=== PATIENT | male | born 1965 | race Caucasian/White ===

== ENCOUNTER 2017-08-26 21:58 | Inpatient (IN) ==
[2017-11-24] MEDS ORDERED: Bisacodyl 10 MG Supp RECTAL PRN (00:01)
[2017-11-24] MEDS ORDERED: Magnesium Sulfate Inj 4 GM in Sodium Chlor 0.9% Inj 100 ML IV.SIG PRN (00:01)
[2017-11-24] MEDS ORDERED: Potassium Chlor 20 mEq Premix 20 MEQ/100 ML PIGGYBACK IV.SIG PRN (00:01)
[2017-11-24] MEDS: Artificial Tears Opth Drops 15 ML Bottle EACH EYE SCH ×3 (06:01→21:24)
[2017-11-24] MEDS: Chlorhexidine 0.12% Oral Kit 15 ML UDC SWISH-SPIT SCH ×2 (08:26→21:23)
[2017-11-24] MEDS: Atenolol 25 MG Tablet PO SCH ×2 (08:31→21:23)
[2017-11-24] MEDS: levETIRAcetam 500 MG Tablet NG/OG SCH ×2 (08:32→21:23)
[2017-11-24] MEDS: QUEtiapine 25 MG Tablet NG/OG SCH ×2 (08:32→21:22)
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
[2017-11-25] MEDS: Artificial Tears Opth Drops 15 ML Bottle EACH EYE SCH ×2 (06:06→22:17)
[2017-11-25] MEDS: QUEtiapine 25 MG Tablet NG/OG SCH ×2 (09:26→22:15)
[2017-11-25] MEDS: levETIRAcetam 500 MG Tablet NG/OG SCH ×2 (09:27→22:15)
[2017-11-25] MEDS: Atenolol 25 MG Tablet PO SCH ×2 (09:28→22:15)
[2017-11-25] MEDS: Chlorhexidine 0.12% Oral Kit 15 ML UDC SWISH-SPIT SCH ×2 (11:22→22:16)
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
--- NOTE | 2017-11-25 15:04 | P.DIET ---
Nutritional Evaluation Type of nutrition evaluation: follow-up Nutrition consult regarding: Tube Feeding, Diet Evaluation (Calorie count completed. Three meals recorded) Objective - Objective % IBW: 104 Energy Needs - Lower Range (kCal/kg): 28 Energy Needs - Upper Range (kCal/kg): 32 Lower Limit kCal/kg (kCals): 1,655 Upper Limit kCal/kg (kCals): 1,892 Lower Limit Protein Factor (Grams per Kg): 1.2 Upper Limit Protein Factor (Grams per Kg): 1.6 Lower Protein Needs (Protein): 71 Upper Protein Needs (Protein): 95 Dietitian Reviewed in Medical Record: Current diet, Curent medications, Intake & Output, Labs, Tube feeding Speech Therapy Recommendations: Yes Objective Comments: 09/05 G/J tube placement s/p trach removal Feeding - Current PO Supplement Current Supplement: Ensure Enlive Current Frequency of Supplement: Three times a day Current kCals Provided by Supplement: 350 Current Protein Provided by Supplement: 20 Assessment Assessment: Calorie counts indicate the pt is eating ~680 kcals and 39 gms of protein in a day. Most of the pt's nutrition was from Ensure Enlive. Minimal solid food taken. This represents 41% and 55 % of the low end of his kcaloric and protein needs respectively. Pt continues to need TFing to meet nutritional needs. Recommend night time TFing of Vital 1.5 @ 70 mls/hr from 7pm-7am to provide 1260 kcals and 57 gms protein. Recommendations: 1. Continue Ensure Enlive tid 2. Vital 1.5 @ 70 mls/hr from 7pm-7am (d/t inadequate po intake) 3. Consider new calorie counts in a week Dietitian to Monitor: Lab values, Supplement acceptance, Intake & Output, Weight change, PO Intake, Medical course
[2017-11-26] MEDS: Artificial Tears Opth Drops 15 ML Bottle EACH EYE SCH ×3 (05:34→23:49)
[2017-11-26] MEDS: Atenolol 25 MG Tablet PO SCH ×2 (09:22→23:47)
[2017-11-26] MEDS: levETIRAcetam 500 MG Tablet NG/OG SCH ×2 (09:22→23:47)
[2017-11-26] MEDS: QUEtiapine 25 MG Tablet NG/OG SCH ×2 (09:23→23:47)
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
[2017-11-26] MEDS: Chlorhexidine 0.12% Oral Kit 15 ML UDC SWISH-SPIT SCH ×2 (17:49→23:48)
[2017-11-27] MEDS: Artificial Tears Opth Drops 15 ML Bottle EACH EYE SCH ×2 (05:20→17:20)
[2017-11-27] MEDS: Atenolol 25 MG Tablet PO SCH (09:17)
[2017-11-27] MEDS: QUEtiapine 25 MG Tablet NG/OG SCH (09:18)
[2017-11-27] MEDS: levETIRAcetam 500 MG Tablet NG/OG SCH (09:18)
[2017-11-27] MEDS: Chlorhexidine 0.12% Oral Kit 15 ML UDC SWISH-SPIT SCH (09:19)
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
[2017-11-28] MEDS: Chlorhexidine 0.12% Oral Kit 15 ML UDC SWISH-SPIT SCH ×3 (00:08→21:32)
[2017-11-28] MEDS: Artificial Tears Opth Drops 15 ML Bottle EACH EYE SCH ×4 (00:08→21:44)
[2017-11-28] MEDS: QUEtiapine 25 MG Tablet NG/OG SCH ×3 (00:11→21:36)
[2017-11-28] MEDS: levETIRAcetam 500 MG Tablet NG/OG SCH ×3 (00:11→21:36)
[2017-11-28] MEDS: Atenolol 25 MG Tablet PO SCH ×3 (00:11→21:36)
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
[2017-11-29] MEDS: Artificial Tears Opth Drops 15 ML Bottle EACH EYE SCH ×3 (05:49→21:23)
[2017-11-29] MEDS: Chlorhexidine 0.12% Oral Kit 15 ML UDC SWISH-SPIT SCH ×2 (09:14→21:22)
[2017-11-29] MEDS: Atenolol 25 MG Tablet PO SCH ×2 (09:15→21:19)
[2017-11-29] MEDS: levETIRAcetam 500 MG Tablet NG/OG SCH ×2 (09:15→21:19)
[2017-11-29] MEDS: QUEtiapine 25 MG Tablet NG/OG SCH ×2 (09:17→21:18)
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
[2017-11-30] MEDS: Artificial Tears Opth Drops 15 ML Bottle EACH EYE SCH ×3 (05:36→22:00)
[2017-11-30] MEDS: levETIRAcetam 500 MG Tablet NG/OG SCH ×2 (10:23→21:57)
[2017-11-30] MEDS: QUEtiapine 25 MG Tablet NG/OG SCH ×2 (10:23→21:57)
[2017-11-30] MEDS: Atenolol 25 MG Tablet PO SCH (10:23)
[2017-11-30] MEDS: Chlorhexidine 0.12% Oral Kit 15 ML UDC SWISH-SPIT SCH ×2 (11:12→21:57)
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
[2017-12-01] MEDS: Artificial Tears Opth Drops 15 ML Bottle EACH EYE SCH ×3 (06:14→22:29)
[2017-12-01] MEDS: QUEtiapine 25 MG Tablet NG/OG SCH ×2 (10:21→22:23)
[2017-12-01] MEDS: Atenolol 25 MG Tablet PO SCH (10:21)
[2017-12-01] MEDS: levETIRAcetam 500 MG Tablet NG/OG SCH ×2 (10:21→22:24)
[2017-12-01] MEDS: Chlorhexidine 0.12% Oral Kit 15 ML UDC SWISH-SPIT SCH ×2 (10:24→22:22)
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
[2017-12-02] MEDS: Artificial Tears Opth Drops 15 ML Bottle EACH EYE SCH ×2 (05:30→14:20)
[2017-12-02] MEDS: levETIRAcetam 500 MG Tablet NG/OG SCH (08:52)
[2017-12-02] MEDS: QUEtiapine 25 MG Tablet NG/OG SCH (08:52)
[2017-12-02] MEDS: Atenolol 25 MG Tablet PO SCH (08:53)
[2017-12-02] MEDS: Chlorhexidine 0.12% Oral Kit 15 ML UDC SWISH-SPIT SCH (12:11)
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
--- NOTE | 2017-12-02 17:16 | P.DIET ---
Nutritional Evaluation Type of nutrition evaluation: follow-up Nutrition consult regarding: Tube Feeding, Diet Evaluation Subjective Barriers to Nutrition: Refuses to eat at times Subjective Comments: Pt continues w/ poor PO intake. Objective - Objective % IBW: 104 (SUZ=252.) Energy Needs - Lower Range (kCal/kg): 28 Energy Needs - Upper Range (kCal/kg): 32 Lower Limit kCal/kg (kCals): 1,655 Upper Limit kCal/kg (kCals): 1,892 Lower Limit Protein Factor (Grams per Kg): 1.2 Upper Limit Protein Factor (Grams per Kg): 1.6 Lower Protein Needs (Protein): 71 Upper Protein Needs (Protein): 95 Dietitian Reviewed in Medical Record: Current diet, Curent medications, Intake & Output, Labs, Tube feeding Oral Diet Intake Amount: Poor <50% Objective Comments: 09/05 G/J tube placement S/p trach removal Meds: Keppra 100ml water flush Q 6hrs LBM 12/01, c.diff+ Feeding - Current Tube Feeding Tube Feeding Product: Vital 1.5 Tube Feeding Method: Pump Tube Feeding Rate: 40 Tube Feeding Route: J/G tube Current kCals Provided by Tube Feedin,440 Current Protein Provided by Tube Feeding (gPRO): 65 Current Free H2O Provided (m/l): 733 - Current PO Supplement Current Supplement: Ensure Enlive Current Frequency of Supplement: Three times a day Current kCals Provided by Supplement: 350 Current Protein Provided by Supplement: 20 Assessment Assessment: Pt continues to have poor PO intake with occasional refusal of some meals. Usually drinks the Enlive supplements. Current TF order is for Vital 1.5 @ 40mls /hr x 24hrs. Recommend changing to Vital 1.5 @ 70mls/hr x 12hrs (7pm-7am) to provide 1260kcals, 67g PRO, and 642mls fluid. Note this will not provide 100% of pt's nutritional requirements, but will hopefully allow pt to feel hungry during the day. Continue Enlive TID as pt is drinking these. Dietitian following. Recommendations: 1. Continue Enlive TID. 2. Recommend Vital 1.5 @ 70mls/hr x 12hrs (7pm-7am). Dietitian to Monitor: Lab values, Supplement acceptance, Intake & Output, Diet tolerance, Tube feeding tolerance, Weight change, PO Intake, Medical course
[2017-12-03] MEDS: Chlorhexidine 0.12% Oral Kit 15 ML UDC SWISH-SPIT SCH (00:39)
[2017-12-03] MEDS: QUEtiapine 25 MG Tablet NG/OG SCH ×3 (00:40→20:29)
[2017-12-03] MEDS: Artificial Tears Opth Drops 15 ML Bottle EACH EYE SCH ×3 (00:40→14:00)
[2017-12-03] MEDS: levETIRAcetam 500 MG Tablet NG/OG SCH ×3 (00:40→20:29)
[2017-12-03] MEDS: Atenolol 25 MG Tablet PO SCH (09:42)
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
[2017-12-04] MEDS: Artificial Tears Opth Drops 15 ML Bottle EACH EYE SCH ×4 (01:54→21:57)
[2017-12-04] MEDS: QUEtiapine 25 MG Tablet NG/OG SCH ×2 (08:20→21:56)
[2017-12-04] MEDS: Atenolol 25 MG Tablet PO SCH (08:20)
[2017-12-04] MEDS: levETIRAcetam 500 MG Tablet NG/OG SCH ×2 (08:20→21:56)
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
--- NOTE | 2017-12-04 13:13 | XR ---
EXAM DATE: 12/04/2017 1:04 PM EDT AGE/SEX: 51 years / Male INDICATIONS: Distention. CLINICAL DATA: This is the patient's initial encounter. Patient reports that signs and symptoms have been present for 1 day and indicates a pain score of Nonresponsive. MEDICAL/SURGICAL HISTORY: . Seizures. . Craniotomy. [place] [facility] [place]. . FINDINGS: Lung bases are clear. Gastrostomy tube evident. Minimal gas filled nondilated loops of large and smal l bowel evident. There is no significant stool. CONCLUSION: Minimal nonspecific gaseous distention. Electronically signed by: Alexis Dorsey MD 12/04/2017 1:12 PM EDT
[2017-12-05] MEDS: Artificial Tears Opth Drops 15 ML Bottle EACH EYE SCH ×3 (05:56→22:10)
[2017-12-05] MEDS: QUEtiapine 25 MG Tablet NG/OG SCH ×2 (09:58→20:08)
[2017-12-05] MEDS: Atenolol 25 MG Tablet PO SCH (09:59)
[2017-12-05] MEDS: levETIRAcetam 500 MG Tablet NG/OG SCH ×2 (09:59→20:08)
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
[2017-12-05 15:42] LABS: Baso # (Auto) 0.1 th/mm3 (0.0-0.2); Baso % (Auto) 0.4 % (0.0-2.0); Eos # (Auto) 0.4 th/mm3 (0.0-0.4); Eos % (Auto) 3.7 % (0.0-4.0); Hemoglobin 14.9 gm/dL (13.0-17.0); Lymph # (Auto) 2.3 th/mm3 (1.0-4.8); Lymph % (Auto) 20.3 % (9.0-44.0); Mean Corpuscular HGB Conc 33.2 % (32.0-36.0); Mean Corpuscular Hemoglobin 28.6 pg (27.0-34.0); Mean Corpuscular Volume 86.2 fL (80.0-100.0); Mean Platelet Volume 11.2 fL (7.0-11.0); Mono # (Auto) 2.6 th/mm3 (0.0-0.9); Mono % (Auto) 22.3 % (0.0-8.0); Neut # (Auto) 6.2 th/mm3 (1.8-7.7); Neut % (Auto) 53.3 % (16.0-70.0); Platelet Count 132 th/mm3 (150-450); Red Blood Count 5.22 mil/mm3 (4.50-5.90); Red Cell Distribution Width 15.6 % (11.6-17.2); White Blood Count 11.6 th/mm3 (4.0-11.0)
[2017-12-05 15:52] LABS: Albumin 2.8 g/dL (3.4-5.0); Anion Gap 11 meq/L (5-15); Aspartate Aminotransferase 20 U/L (15-37); Blood Urea Nitrogen 9 mg/dL (7-18); Calcium 8.5 mg/dL (8.5-10.1); Carbon Dioxide 27.1 meq/L (21.0-32.0); Chloride 100 meq/L (98-107); Glomerular Filtration Rate Greater Than 89 mL/min (>89); Glucose,Random 100 mg/dL (74-106); Potassium 3.5 meq/L (3.5-5.1); Sodium 138 meq/L (136-145)
[2017-12-05 15:56] LABS: Alanine Aminotransferase 18 U/L (12-78); Alkaline Phosphatase 62 U/L (45-117); Total Protein 6.7 g/dL (6.4-8.2)
[2017-12-05 16:40] LABS: Eosinophils 8 % (0-4); Lymphocytes 18 % (9-44); Monocytes 22 % (0-8)
[2017-12-05 16:43] LABS: Platelet Morphology Normal (Normal)
--- NOTE | 2017-12-05 17:22 | P.PN ---
Subjective Interval history: F/U of aspiration pneumonia / H/o head injury. Pt has C Difficile colitis and still has some loose stools. Abdominal distention has improved. Off O2 at sats are 97 Physical Exam Vital signs: Vital Signs 12/04/17 20:00 12/05/17 00:00 12/05/17 04:00 Temperature 98.3 F 98.1 F 100.8 F H Pulse Rate 86 112 H 96 H Respiratory Rate 16 17 17 Blood Pressure 95/60 L 128/76 96/62 L Pulse Oximetry 95 95 95 12/05/17 08:00 12/05/17 12:00 Temperature 98.7 F 98.8 F Pulse Rate 102 H 92 H Respiratory Rate 18 18 Blood Pressure 108/75 100/66 Pulse Oximetry 95 94 L Intake & Output 12/04/17 12/05/17 12/05/17 18:59 06:59 18:59 Intake Total 600 / 600 150 / 150 Output Total 100 / 100 Balance 500 / 500 150 / 150 Weight 55.3 kg Intake: Oral 600 / 600 150 / 150 Output: Urine 100 / 100 Other: # Voids 3 # Incontinent Voids 1 Date of Last Bowel Movement 12/03/17 # Bowel Movements 2 # Incontinent Bowel Movements 2 Narrative: awake and alert, no acute distress,Follows all commands, speech soft, oriented to person anicteric no nuchal rigidity tracheostomy wound close Chest is clear. regular rhythm no Murmur. abdomen- much softer , + PEG in place, + tender epigastric area, good bowel sounds, no guarding extremities no edema- moves all extremities spontaneously moves all extremities . Results - Labs CBC & Chem 7: 12/05/17 13:45 12/05/17 13:45 Laboratory Results - last 24 hr 12/05/17 12/05/17 12/05/17 13:45 13:45 13:57 WBC 11.6 H RBC 5.22 Hgb 14.9 Hct 45.0 MCV 86.2 MCH 28.6 MCHC 33.2 RDW 15.6 Plt Count 132 L MPV 11.2 H Prelim Diff (Auto) Slide review pending Neut % (Auto) 53.3 Lymph % (Auto) 20.3 [place] % (Auto) 22.3 H Eos % (Auto) 3.7 Baso % (Auto) 0.4 Neut # (Auto) 6.2 Lymph # (Auto) 2.3 [place] # (Auto) 2.6 H Eos # (Auto) 0.4 Baso # (Auto) 0.1 WBC Differential Manual diff final Seg Neuts % (Manual) 39 Band Neuts % (Manual) 12 H Lymphocytes % (Manual) 18 Monocytes % (Manual) 22 H Eosinophils % (Manual) 8 H Basophils % (Manual) 1 Abs Neuts (Manual) 5.9 Differential Comment . Platelet Estimate Low L Platelet Morphology Normal Sodium 138 Potassium 3.5 Chloride 100 Carbon Dioxide 27.1 Anion Gap 11 BUN 9 Creatinine 0.58 L Estimated GFR Greater than 89 Random Glucose 100 Calcium 8.5 Total Bilirubin 0.5 AST 20 ALT 18 Alkaline Phosphatase 62 Total Protein 6.7 Albumin 2.8 L Lipase 81 Assessment and Plan - Assessment (1) Aspiration into airway Code(s): T17.908A - Unspecified foreign body in respiratory tract, part unspecified causing other injury, initial encounter Status: Acute Plan: Aspiration precautions and a soft diet. Chest Xray. (2) Encephalopathy chronic Code(s): G93.49 - Other encephalopathy Status: Acute Plan: PT evaluation. Seroquel 25 mg BID (3) Traumatic brain injury Code(s): S06.9X9A - Unspecified intracranial injury with loss of consciousness of unspecified duration, initial encounter Status: Acute (4) C. difficile diarrhea Code(s): A04.72 - Enterocolitis due to Clostridium difficile, not specified as recurrent Status: Acute
[2017-12-06] MEDS: Artificial Tears Opth Drops 15 ML Bottle EACH EYE SCH ×3 (05:20→22:56)
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
[2017-12-06] MEDS: levETIRAcetam 500 MG Tablet NG/OG SCH ×2 (10:40→22:55)
[2017-12-06] MEDS: QUEtiapine 25 MG Tablet NG/OG SCH ×2 (10:41→22:55)
[2017-12-06] MEDS: Atenolol 25 MG Tablet PO SCH (10:41)
--- NOTE | 2017-12-06 18:12 | P.PN ---
Subjective Interval history: No change in mentation. Awake and responds to commands . Off O2 and incontinent. No Abdominal distention Physical Exam Vital signs: Vital Signs 12/05/17 20:00 12/06/17 00:00 12/06/17 04:00 Temperature 98.3 F 98.7 F 98 F Pulse Rate 89 93 H 86 Respiratory Rate 16 16 20 Blood Pressure 97/62 L 113/76 103/68 Pulse Oximetry 95 96 98 12/06/17 08:00 12/06/17 12:00 Temperature 98.2 F 98.2 F Pulse Rate 88 82 Respiratory Rate 18 18 Blood Pressure 103/62 99/59 L Pulse Oximetry 95 96 Intake & Output 12/05/17 12/06/17 12/06/17 18:59 06:59 18:59 Intake Total 240 / 240 120 / 120 Balance 240 / 240 120 / 120 Weight 55.6 kg Intake: Oral 240 / 240 120 / 120 Other: # Voids 2 Date of Last Bowel Movement 12/05/17 12/05/17 # Bowel Movements 3 # Incontinent Bowel Movements 4 Narrative: awake and alert, no acute distress,Follows all commands, speech soft but clear oriented to person. no nuchal rigidity. Throat is clear. tracheostomy wound closed Chest is clear. regular rhythm no Murmur. abdomen- soft, good bowel sounds, no guarding, no tenderness + PEG in place, extremities no edema- moves all extremities spontaneously Skin was dry. Results - Labs CBC & Chem 7: 12/05/17 13:45 12/05/17 13:45 Assessment and Plan - Assessment (1) Aspiration into airway Code(s): T17.908A - Unspecified foreign body in respiratory tract, part unspecified causing other injury, initial encounter Status: Acute Plan: Watch for aspiration and soft diet. Albuterol Nebs 2.5 mg qid PRN O2 2 L PRN (2) Encephalopathy chronic Code(s): G93.49 - Other encephalopathy Status: Acute Plan: PT evaluation. (3) Traumatic brain injury Code(s): S06.9X9A - Unspecified intracranial injury with loss of consciousness of unspecified duration, initial encounter Status: Acute (4) C. difficile diarrhea Code(s): A04.72 - Enterocolitis due to Clostridium difficile, not specified as recurrent Status: Acute
[2017-12-07] MEDS: Acetaminophen 325 MG Tablet PO PRN ×2 (00:43→09:23)
[2017-12-07] MEDS: QUEtiapine 25 MG Tablet NG/OG SCH ×2 (09:23→20:29)
[2017-12-07] MEDS: levETIRAcetam 500 MG Tablet NG/OG SCH ×2 (09:23→20:29)
[2017-12-07] MEDS: Atenolol 25 MG Tablet PO SCH (09:23)
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
[2017-12-07] MEDS: Artificial Tears Opth Drops 15 ML Bottle EACH EYE SCH ×2 (11:32→17:58)
--- NOTE | 2017-12-07 11:45 | XR ---
EXAM DATE: 12/07/2017 11:35 AM EDT AGE/SEX: 51 years / Male INDICATIONS: Fever CLINICAL DATA: This is the patient's subsequent encounter. Patient reports that signs and symptoms h ave been present for 1 month and indicates a pain score of Nonresponsive. MEDICAL/SURGICAL HISTORY: Non-responsive. Non-responsive. COMPARISON: [facility] – [place], CHEST SINGLE AP, 11/19/2017. . FINDINGS: AP portable supine view of the chest demonstrates stable appearance of elevation of the left hemidiap hragm. The lungs are clear. Heart size is normal. Pulmonary vasculature is normal. Osseous structures appear intact. CONCLUSION: Negative examination. Electronically signed by: Danika Ascencio MD 12/07/2017 11:44 AM EDT
--- NOTE | 2017-12-07 11:46 | XR ---
EXAM DATE: 12/07/2017 11:36 AM EDT AGE/SEX: 51 years / Male INDICATIONS: Fever CLINICAL DATA: This is the patient's subsequent encounter. Patient reports that signs and symptoms h ave been present for 1 month and indicates a pain score of Nonresponsive. MEDICAL/SURGICAL HISTORY: Non-responsive. Non-responsive. COMPARISON: [facility] – [place], ABDOMEN 2V FLAT & UPRIGHT, 12/04/2017. . FINDINGS: Multiple upright and supine portable views are obtained. The majority of the films are nondiagnostic secondary to patient motion and poor penetration. There is no evidence of bowel obstruction. There is a PEG tube overlying the region of the stomach. Osseous structures appear intact. CONCLUSION: Given the limitations of the plain film exam. Consider CT for further evaluation of the abdomen and p bari. Electronically signed by: Danika Ascencio MD 12/07/2017 11:45 AM EDT
[2017-12-07 13:14] LABS: Baso # (Auto) 0.1 th/mm3 (0.0-0.2); Baso % (Auto) 0.3 % (0.0-2.0); Eos # (Auto) 0.1 th/mm3 (0.0-0.4); Eos % (Auto) 0.6 % (0.0-4.0); Hematocrit 46.3 % (39.0-51.0); Hemoglobin 15.7 gm/dL (13.0-17.0); Lymph # (Auto) 1.6 th/mm3 (1.0-4.8); Lymph % (Auto) 9.8 % (9.0-44.0); Mean Corpuscular HGB Conc 33.9 % (32.0-36.0); Mean Corpuscular Volume 85.8 fL (80.0-100.0); Mean Platelet Volume 10.3 fL (7.0-11.0); Mono # (Auto) 2.9 th/mm3 (0.0-0.9); Mono % (Auto) 17.2 % (0.0-8.0); Neut # (Auto) 12.1 th/mm3 (1.8-7.7); Neut % (Auto) 72.1 % (16.0-70.0); Platelet Count 157 th/mm3 (150-450); Red Cell Distribution Width 15.5 % (11.6-17.2); White Blood Count 16.8 th/mm3 (4.0-11.0)
[2017-12-07 13:29] LABS: Alanine Aminotransferase 14 U/L (12-78); Albumin 2.8 g/dL (3.4-5.0); Anion Gap 10 meq/L (5-15); Aspartate Aminotransferase 16 U/L (15-37); Blood Urea Nitrogen 9 mg/dL (7-18); Calcium 8.2 mg/dL (8.5-10.1); Carbon Dioxide 27.9 meq/L (21.0-32.0); Chloride 100 meq/L (98-107); Glomerular Filtration Rate Greater Than 89 mL/min (>89); Glucose,Random 100 mg/dL (74-106); Potassium 3.5 meq/L (3.5-5.1); Sodium 138 meq/L (136-145)
[2017-12-07 13:32] LABS: Alkaline Phosphatase 64 U/L (45-117)
[2017-12-07 14:06] LABS: Eosinophils 1 % (0-4); Lymphocytes 14 % (9-44); Monocytes 15 % (0-8); Platelet Estimate Normal (Normal); Platelet Morphology Normal (Normal); RBC Morphology Normal (Normal)
[2017-12-07 16:43] LABS: Amorphous Sediment,Urine Occasional /hpf; Bilirubin,Urine Negative (Negative); Clarity,Urine Hazy (Clear); Color,Urine Amber (Yellw/Straw); Glucose,Urine (UA) 50 mg/dL (Negative); Leukocyte Esterase,Urine Negative (Negative); Mucus,Urine Few /lpf (Occasional); Nitrite,Urine Negative (Negative); Specific Gravity,Urine 1.019 (1.002-1.035)
[2017-12-07 16:48] LABS: Bacteria,Urine Few /hpf
[2017-12-07] MEDS ORDERED: Diatrizoate Meglum/Diatrizoate Sod Liq 9 ML UDC PO ONE (17:39)
[2017-12-07] MEDS: KCL 20 mEq/D5W/NaCl 0.9% Inj 1,000 ML IV.CONT SCH (18:33)
[2017-12-07] MEDS: Levofloxacin 500 mg Premix Inj 500 MG/100 ML PIGGYBACK IV.SIG SCH (18:34)
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
[2017-12-08] MEDS: Artificial Tears Opth Drops 15 ML Bottle EACH EYE SCH ×4 (00:37→21:02)
[2017-12-08] MEDS: KCL 20 mEq/D5W/NaCl 0.9% Inj 1,000 ML IV.CONT SCH ×4 (05:35→20:50)
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
[2017-12-08 09:48] LABS: Baso # (Auto) 0.1 th/mm3 (0.0-0.2); Baso % (Auto) 0.7 % (0.0-2.0); Eos # (Auto) 0.4 th/mm3 (0.0-0.4); Eos % (Auto) 2.4 % (0.0-4.0); Hematocrit 40.4 % (39.0-51.0); Hemoglobin 13.7 gm/dL (13.0-17.0); Lymph # (Auto) 2.3 th/mm3 (1.0-4.8); Lymph % (Auto) 14.1 % (9.0-44.0); Mean Corpuscular HGB Conc 33.8 % (32.0-36.0); Mean Corpuscular Hemoglobin 28.9 pg (27.0-34.0); Mean Corpuscular Volume 85.6 fL (80.0-100.0); Mean Platelet Volume 10.5 fL (7.0-11.0); Mono # (Auto) 2.2 th/mm3 (0.0-0.9); Mono % (Auto) 13.5 % (0.0-8.0); Neut # (Auto) 11.2 th/mm3 (1.8-7.7); Neut % (Auto) 69.3 % (16.0-70.0); Platelet Count 139 th/mm3 (150-450); Red Blood Count 4.72 mil/mm3 (4.50-5.90); Red Cell Distribution Width 15.2 % (11.6-17.2); White Blood Count 16.2 th/mm3 (4.0-11.0)
[2017-12-08 09:57] LABS: Anion Gap 14 meq/L (5-15); Blood Urea Nitrogen 10 mg/dL (7-18); Calcium 7.9 mg/dL (8.5-10.1); Carbon Dioxide 22.2 meq/L (21.0-32.0); Chloride 102 meq/L (98-107); Glomerular Filtration Rate Greater Than 89 mL/min (>89); Glucose,Random 114 mg/dL (74-106)
[2017-12-08 10:21] LABS: Eosinophils 1 % (0-4); Lymphocytes 15 % (9-44); Metamyelocytes 1 % (0-1); Monocytes 10 % (0-8)
[2017-12-08 10:22] LABS: Platelet Morphology Normal (Normal)
[2017-12-08 10:29] LABS: Sodium 138 meq/L (136-145)
[2017-12-08] MEDS: Atenolol 25 MG Tablet PO SCH (10:51)
[2017-12-08] MEDS: QUEtiapine 25 MG Tablet NG/OG SCH ×2 (10:51→20:49)
[2017-12-08] MEDS: levETIRAcetam 500 MG Tablet NG/OG SCH ×2 (10:53→20:49)
[2017-12-08] MEDS: Levofloxacin 500 mg Premix Inj 500 MG/100 ML PIGGYBACK IV.SIG SCH (16:28)
--- NOTE | 2017-12-08 19:37 | P.PNID ---
Subjective Remarks: Reconsult requested from infectious disease. Patient with fever. Temperature of 102.9 acute on 12/07 early. Temperature has improved. White blood cell count elevated. Patient is awake. States that he feels okay. Denies pain. Denies chills. Denies shortness of breath. He is on room air O2. CT of abdomem shows diffuse colitis. Lines: Peripheral IV catheter appears intact. Allergies/Adverse Reactions: Allergies No Known Allergies Allergy (Verified 11/23/17 11:49) Objective Vital Signs 12/07/17 20:00 12/08/17 00:00 12/08/17 04:00 Temperature 97.8 F 97.2 F L 98.1 F Pulse Rate 98 H 96 H 95 H Respiratory Rate 18 18 17 Blood Pressure 108/80 121/85 104/73 Pulse Oximetry 97 98 96 12/08/17 08:00 12/08/17 12:00 12/08/17 16:00 Temperature 97.9 F 97.8 F 98 F Pulse Rate 86 76 72 Respiratory Rate 20 20 20 Blood Pressure 111/71 105/61 99/52 L Pulse Oximetry 96 96 95 Intake & Output 12/08/17 12/08/17 12/09/17 06:59 18:59 06:59 Intake Total 1300 / 1300 200 / 200 Balance 1300 / 1300 200 / 200 Weight 56.6 kg Intake: IV 1300 / 1300 200 / 200 D5W/NS + KCL 20 mEq Inj 1,000 1000 / 1000 ML @ 100 mls/hr IV.CONT .Q10H [facility] Rx#:[id number] Levaquin 500 mg Premix Inj 500 100 / 100 mg In 100 ml @ 100 mls/hr IV. SIG Q24H [facility] Rx#:[id number] Flagyl 500 MG Inj 100 ML @ 100 200 / 200 200 / 200 mls/hr IV.SIG Q6HR [facility] Rx#: [id number] Oral 0 / 0 Other: # Voids 0 Date of Last Bowel Movement 12/07/17 12/08/17 # Bowel Movements 2 12/07/17 12:43 Blood - Peripheral Aerobic Blood Culture - Preliminary No growth in 1 day 12/07/17 12:43 Blood - Peripheral Anaerobic Blood Culture - Preliminary No growth in 1 day 12/07/17 12:15 Blood - Peripheral Aerobic Blood Culture - Preliminary No growth in 1 day 12/07/17 12:15 Blood - Peripheral Anaerobic Blood Culture - Preliminary No growth in 1 day 12/07/17 16:25 Catheterized Urine Urine Culture - Preliminary No growth in 24 hours Lab - Hematology Results 12/07/17 12/08/17 12:43 08:45 WBC 16.8 H 16.2 H RBC 5.40 4.72 Hgb 15.7 13.7 D Hct 46.3 40.4 MCV 85.8 85.6 MCH 29.0 28.9 MCHC 33.9 33.8 RDW 15.5 15.2 Plt Count 157 139 L MPV 10.3 10.5 Prelim Diff (Auto) Slide review pending Slide review pending Neut % (Auto) 72.1 H 69.3 Lymph % (Auto) 9.8 14.1 [place] % (Auto) 17.2 H 13.5 H Eos % (Auto) 0.6 2.4 Baso % (Auto) 0.3 0.7 Neut # (Auto) 12.1 H 11.2 H Lymph # (Auto) 1.6 2.3 [place] # (Auto) 2.9 H 2.2 H Eos # (Auto) 0.1 0.4 Baso # (Auto) 0.1 0.1 WBC Differential Manual diff final Manual diff final Seg Neuts % (Manual) 21 62 Band Neuts % (Manual) 49 H 11 H Lymphocytes % (Manual) 14 15 Monocytes % (Manual) 15 H 10 H Eosinophils % (Manual) 1 1 Metamyelocytes % (Man) 1 Abs Neuts (Manual) 11.8 H 12.0 H Differential Comment . . Platelet Estimate Normal Low L Platelet Morphology Normal Normal RBC Morphology Normal Hematology Comments Lab - Chemistry Results 12/07/17 12/07/17 12/08/17 12:43 12:43 08:45 Sodium 138 138 Potassium 3.5 4.0 Chloride 100 102 Carbon Dioxide 27.9 22.2 Anion Gap 10 14 BUN 9 10 Creatinine 0.65 0.59 L Estimated GFR Greater than 89 Greater than 89 Random Glucose 100 114 H Calcium 8.2 L 7.9 L Total Bilirubin 0.6 AST 16 ALT 14 Alkaline Phosphatase 64 Total Protein 7.0 Albumin 2.8 L Lipase 62 L Imaging: ITS Impressions Abdomen/Pelvis CT 12/07/17 00:00 CONCLUSION: 1. Diffuse colitis. 2. GJ tube in place. 3. Mild left pleural effusion, there are mild bibasilar areas of consolidation or atelectasis. Chest X-Ray 12/07/17 11:05 CONCLUSION: Negative examination. Abdomen X-Ray 12/07/17 11:06 CONCLUSION: Given the limitations of the plain film exam. Consider CT for further evaluation of the abdomen and pelvis. Physical Exam: GENERAL: Alert and oriented, no acute distress. HEENT: Pupils reactive to light. Extraocular movements intact. No icterus. NECK: Supple without adenopathy. No swelling. LUNGS: Clear to auscultation with slight rhonchi at the bases. HEART: Regular S1-S2 without murmurs rubs or gallops. ABDOMEN: Positive bowel sounds, soft, no tenderness appreciated. EXTREMITIES: No clubbing cyanosis or edema. SKIN: No rash. NEUROLOGIC: No focal finding. PSYCH: Calm and cooperative. Peripheral IV line intact without evidence of infection. Assessment and Plan - Plan Impression: Fever. Clinically stable and temperature has improved. positive c difficile Recommendations: Continue to monitor temperature. Monitor white blood cell count. Continue Dificid. I will ask Dr. Arreola to continue to follow the patient who is known to her.
[2017-12-09] MEDS: KCL 20 mEq/D5W/NaCl 0.9% Inj 1,000 ML IV.CONT SCH ×2 (00:03→10:32)
[2017-12-09] MEDS: QUEtiapine 25 MG Tablet NG/OG SCH ×2 (10:31→21:44)
[2017-12-09] MEDS: levETIRAcetam 500 MG Tablet NG/OG SCH ×2 (10:31→21:44)
[2017-12-09] MEDS: Artificial Tears Opth Drops 15 ML Bottle EACH EYE SCH ×3 (10:33→21:46)
[2017-12-09 12:07] LABS: Anion Gap 8 meq/L (5-15); Blood Urea Nitrogen 7 mg/dL (7-18); Calcium 7.8 mg/dL (8.5-10.1); Carbon Dioxide 24.9 meq/L (21.0-32.0); Chloride 111 meq/L (98-107); Glomerular Filtration Rate Greater Than 89 mL/min (>89); Glucose,Random 107 mg/dL (74-106); Potassium 3.2 meq/L (3.5-5.1); Sodium 144 meq/L (136-145)
--- NOTE | 2017-12-09 12:35 | P.PN ---
Subjective Interval history: Has loose stools and fever. Has Rec C. Difficile colitis. Off Tube feeds. Physical Exam Vital signs: Vital Signs 12/08/17 16:00 12/08/17 20:00 12/09/17 00:00 Temperature 98 F 97.8 F 98.0 F Pulse Rate 72 69 67 Respiratory Rate 20 18 18 Blood Pressure 99/52 L 90/53 L 95/55 L Pulse Oximetry 95 97 97 12/09/17 04:00 12/09/17 08:00 Temperature 98.0 F 97.8 F Pulse Rate 66 66 Respiratory Rate 18 20 Blood Pressure 90/54 L 92/57 L Pulse Oximetry 97 95 Intake & Output 12/08/17 12/09/17 12/09/17 18:59 06:59 18:59 Intake Total 200 / 200 1200 / 1200 Balance 200 / 200 1200 / 1200 Weight 55.5 kg Intake: IV 200 / 200 1200 / 1200 D5W/NS + KCL 20 mEq Inj 1,000 1000 / 1000 ML @ 100 mls/hr IV.CONT .Q10H [facility] Rx#:[id number] Flagyl 500 MG Inj 100 ML @ 100 200 / 200 200 / 200 mls/hr IV.SIG Q6HR [facility] Rx#: [id number] Oral 0 / 0 Other: # Voids 2 Date of Last Bowel Movement 12/08/17 12/08/17 # Bowel Movements 2 Narrative: awake and alert, no acute distress and seems hydrated. Throat is clear. tracheostomy wound healed Chest is clear. regular rhythm no Murmur. abdomen- soft, , l+ tenderness- lower abdomen, no guarding extremities no edema- moves all extremities spontaneously Skin was dry. No Neuro deficits. Results - Labs CBC & Chem 7: 12/08/17 08:45 12/09/17 11:10 Laboratory Results - last 24 hr 12/09/17 11:10 Sodium 144 Potassium 3.2 L D Chloride 111 H D Carbon Dioxide 24.9 Anion Gap 8 BUN 7 Creatinine 0.45 L Estimated GFR Greater than 89 Random Glucose 107 H Calcium 7.8 L Microbiology 12/07/17 12:43 Blood - Peripheral Aerobic Blood Culture - Preliminary No growth in 2 days 12/07/17 12:43 Blood - Peripheral Anaerobic Blood Culture - Preliminary No growth in 2 days 12/07/17 12:15 Blood - Peripheral Aerobic Blood Culture - Preliminary No growth in 2 days 12/07/17 12:15 Blood - Peripheral Anaerobic Blood Culture - Preliminary No growth in 2 days 12/07/17 16:25 Catheterized Urine Urine Culture - Final No growth in 48 hours Assessment and Plan - Assessment (1) Aspiration into airway Code(s): T17.908A - Unspecified foreign body in respiratory tract, part unspecified causing other injury, initial encounter Status: Acute Plan: Duonebs qid prn. CXR this week (2) Encephalopathy chronic Code(s): G93.49 - Other encephalopathy Status: Acute Plan: PT and OT evaluation. (3) Traumatic brain injury Code(s): S06.9X9A - Unspecified intracranial injury with loss of consciousness of unspecified duration, initial encounter Status: Acute (4) C. difficile diarrhea Code(s): A04.72 - Enterocolitis due to Clostridium difficile, not specified as recurrent Status: Acute Plan: Antibiotics per ID and Hydration.
[2017-12-09] MEDS: Atenolol 25 MG Tablet PO SCH (14:24)
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
--- NOTE | 2017-12-09 20:54 | P.PNID ---
Subjective Remarks: Chart reviewed Reconsult requested from infectious disease. Patient with fever. Temperature of 102.9 acute on 12/07 early. Temperature has improved. White blood cell count elevated. Patient is awake. States that he feels okay. Denies pain. Denies chills. Denies shortness of breath. He is on room air O2. CT of abdomem shows diffuse colitis. POsitiveC.diff 027 on 11/27 test No fever today Per RN had some liquid mucosy BMs today + abdominal pain Lines: Peripheral IV catheter appears intact. Allergies/Adverse Reactions: Allergies No Known Allergies Allergy (Verified 11/23/17 11:49) Objective Vital Signs 12/09/17 00:00 12/09/17 04:00 12/09/17 08:00 Temperature 98.0 F 98.0 F 97.8 F Pulse Rate 67 66 66 Respiratory Rate 18 18 20 Blood Pressure 95/55 L 90/54 L 92/57 L Pulse Oximetry 97 97 95 12/09/17 12:00 12/09/17 16:00 Temperature 97.5 F L 97.9 F Pulse Rate 76 66 Respiratory Rate 20 20 Blood Pressure 105/65 97/60 L Pulse Oximetry 98 97 Intake & Output 12/09/17 12/09/17 12/10/17 06:59 18:59 06:59 Intake Total 1200 / 1200 920 / 920 Balance 1200 / 1200 920 / 920 Weight 55.5 kg Intake: IV 1200 / 1200 200 / 200 D5W/NS + KCL 20 mEq Inj 1,000 1000 / 1000 ML @ 100 mls/hr IV.CONT .Q10H [facility] Rx#:[id number] Flagyl 500 MG Inj 100 ML @ 100 200 / 200 200 / 200 mls/hr IV.SIG Q6HR [facility] Rx#: [id number] Oral 0 / 0 720 / 720 Other: # Voids 2 2 Date of Last Bowel Movement 12/08/17 # Bowel Movements 2 2 12/07/17 12:43 Blood - Peripheral Aerobic Blood Culture - Preliminary No growth in 2 days 12/07/17 12:43 Blood - Peripheral Anaerobic Blood Culture - Preliminary No growth in 2 days 12/07/17 12:15 Blood - Peripheral Aerobic Blood Culture - Preliminary No growth in 2 days 12/07/17 12:15 Blood - Peripheral Anaerobic Blood Culture - Preliminary No growth in 2 days 12/07/17 16:25 Catheterized Urine Urine Culture - Final No growth in 48 hours Lab - Hematology Results 12/08/17 08:45 WBC 16.2 H RBC 4.72 Hgb 13.7 D Hct 40.4 MCV 85.6 MCH 28.9 MCHC 33.8 RDW 15.2 Plt Count 139 L MPV 10.5 Prelim Diff (Auto) Slide review pending Neut % (Auto) 69.3 Lymph % (Auto) 14.1 [place] % (Auto) 13.5 H Eos % (Auto) 2.4 Baso % (Auto) 0.7 Neut # (Auto) 11.2 H Lymph # (Auto) 2.3 [place] # (Auto) 2.2 H Eos # (Auto) 0.4 Baso # (Auto) 0.1 WBC Differential Manual diff final Seg Neuts % (Manual) 62 Band Neuts % (Manual) 11 H Lymphocytes % (Manual) 15 Monocytes % (Manual) 10 H Eosinophils % (Manual) 1 Metamyelocytes % (Man) 1 Abs Neuts (Manual) 12.0 H Differential Comment . Platelet Estimate Low L Platelet Morphology Normal Hematology Comments Lab - Chemistry Results 12/08/17 12/09/17 08:45 11:10 Sodium 138 144 Potassium 4.0 3.2 L D Chloride 102 111 H D Carbon Dioxide 22.2 24.9 Anion Gap 14 8 BUN 10 7 Creatinine 0.59 L 0.45 L Estimated GFR Greater than 89 Greater than 89 Random Glucose 114 H 107 H Calcium 7.9 L 7.8 L Imaging: ITS Impressions Abdomen/Pelvis CT 12/07/17 00:00 CONCLUSION: 1. Diffuse colitis. 2. GJ tube in place. 3. Mild left pleural effusion, there are mild bibasilar areas of consolidation or atelectasis. Chest X-Ray 12/07/17 11:05 CONCLUSION: Negative examination. Abdomen X-Ray 12/07/17 11:06 CONCLUSION: Given the limitations of the plain film exam. Consider CT for further evaluation of the abdomen and pelvis. Physical Exam: GENERAL: Alert and oriented, no acute distress. HEENT: Pupils reactive to light. Extraocular movements intact. No icterus. NECK: Supple without adenopathy. No swelling. LUNGS: Clear to auscultation with slight rhonchi at the bases. HEART: Regular S1-S2 without murmurs rubs or gallops. ABDOMEN: Positive bowel sounds, soft, mildl disteded and tender to palpation EXTREMITIES: No clubbing cyanosis or edema. SKIN: No rash. NEUROLOGIC: [place] cognitive deficits, stable PSYCH: Calm and cooperative. Peripheral IV line intact without evidence of infection. Assessment and Plan - Plan Impression: Fever. Clinically stable and temperature has improved. Diffiuse c difficile colitis, Hypervirulebnt strai n No e/o PNA on CXR Recommendations: avoid systemic abx Monitor white blood cell count. Continue Dificid. cont IV flagyl and oral vancomycin will monitor xclinical response
[2017-12-10] MEDS: KCL 20 mEq/D5W/NaCl 0.9% Inj 1,000 ML IV.CONT SCH ×2 (01:19→19:00)
[2017-12-10] MEDS: Artificial Tears Opth Drops 15 ML Bottle EACH EYE SCH ×3 (06:08→21:16)
[2017-12-10 09:48] LABS: Baso % (Auto) 0.7 % (0.0-2.0); Eos # (Auto) 0.3 th/mm3 (0.0-0.4); Eos % (Auto) 5.1 % (0.0-4.0); Hematocrit 39.3 % (39.0-51.0); Hemoglobin 13.2 gm/dL (13.0-17.0); Lymph # (Auto) 1.8 th/mm3 (1.0-4.8); Lymph % (Auto) 31.8 % (9.0-44.0); Mean Corpuscular HGB Conc 33.6 % (32.0-36.0); Mean Corpuscular Hemoglobin 28.8 pg (27.0-34.0); Mean Corpuscular Volume 85.8 fL (80.0-100.0); Mean Platelet Volume 9.3 fL (7.0-11.0); Mono # (Auto) 0.5 th/mm3 (0.0-0.9); Mono % (Auto) 8.8 % (0.0-8.0); Neut % (Auto) 53.6 % (16.0-70.0); Platelet Count 178 th/mm3 (150-450); Red Blood Count 4.58 mil/mm3 (4.50-5.90); Red Cell Distribution Width 14.7 % (11.6-17.2); White Blood Count 5.5 th/mm3 (4.0-11.0)
[2017-12-10 09:49] LABS: INR 1.3 Ratio; Prothrombin Time 12.7 sec (9.8-11.6)
[2017-12-10] MEDS: levETIRAcetam 500 MG Tablet NG/OG SCH ×2 (09:51→20:54)
[2017-12-10] MEDS: QUEtiapine 25 MG Tablet NG/OG SCH ×2 (09:51→20:54)
[2017-12-10] MEDS: Atenolol 25 MG Tablet PO SCH (09:51)
[2017-12-10 10:28] LABS: Anion Gap 11 meq/L (5-15)
[2017-12-10 10:41] LABS: Alanine Aminotransferase 11 U/L (12-78); Albumin 2.2 g/dL (3.4-5.0); Alkaline Phosphatase 44 U/L (45-117); Aspartate Aminotransferase 18 U/L (15-37); Blood Urea Nitrogen 2 mg/dL (7-18); Calcium 8.2 mg/dL (8.5-10.1); Carbon Dioxide 24.1 meq/L (21.0-32.0); Chloride 110 meq/L (98-107); Glomerular Filtration Rate Greater Than 89 mL/min (>89); Glucose,Random 92 mg/dL (74-106); Magnesium 1.7 mg/dL (1.5-2.5); Sodium 145 meq/L (136-145); Total Protein 5.6 g/dL (6.4-8.2)
[2017-12-10 10:59] LABS: Potassium 2.8 meq/L (3.5-5.1)
[2017-12-10] MEDS ORDERED: Potassium Chloride 25 MEQ Effervescent Tablet G-TUBE ONE (13:11)
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
[2017-12-11] MEDS: Artificial Tears Opth Drops 15 ML Bottle EACH EYE SCH ×3 (05:24→22:40)
[2017-12-11] MEDS: KCL 20 mEq/D5W/NaCl 0.9% Inj 1,000 ML IV.CONT SCH ×3 (05:25→22:37)
[2017-12-11] MEDS: Atenolol 25 MG Tablet PO SCH (08:46)
[2017-12-11] MEDS: levETIRAcetam 500 MG Tablet NG/OG SCH ×2 (08:46→22:39)
[2017-12-11] MEDS: QUEtiapine 25 MG Tablet NG/OG SCH ×2 (08:48→22:39)
[2017-12-11 10:46] LABS: Baso % (Auto) 0.9 % (0.0-2.0); Eos # (Auto) 0.2 th/mm3 (0.0-0.4); Eos % (Auto) 6.2 % (0.0-4.0); Hematocrit 39.4 % (39.0-51.0); Hemoglobin 13.3 gm/dL (13.0-17.0); Lymph # (Auto) 1.4 th/mm3 (1.0-4.8); Lymph % (Auto) 40.9 % (9.0-44.0); Mean Corpuscular HGB Conc 33.7 % (32.0-36.0); Mean Corpuscular Hemoglobin 29.1 pg (27.0-34.0); Mean Corpuscular Volume 86.3 fL (80.0-100.0); Mean Platelet Volume 9.1 fL (7.0-11.0); Mono # (Auto) 0.5 th/mm3 (0.0-0.9); Mono % (Auto) 13.6 % (0.0-8.0); Neut # (Auto) 1.4 th/mm3 (1.8-7.7); Neut % (Auto) 38.4 % (16.0-70.0); Platelet Count 226 th/mm3 (150-450); Red Blood Count 4.57 mil/mm3 (4.50-5.90); White Blood Count 3.5 th/mm3 (4.0-11.0)
[2017-12-11 11:19] LABS: Alanine Aminotransferase 15 U/L (12-78); Alkaline Phosphatase 46 U/L (45-117); Anion Gap 5 meq/L (5-15); Aspartate Aminotransferase 23 U/L (15-37); Blood Urea Nitrogen 3 mg/dL (7-18); Calcium 7.6 mg/dL (8.5-10.1); Carbon Dioxide 28.8 meq/L (21.0-32.0); Chloride 112 meq/L (98-107); Glomerular Filtration Rate Greater Than 89 mL/min (>89); Glucose,Random 141 mg/dL (74-106); Magnesium 1.6 mg/dL (1.5-2.5); Phosphorus 2.1 mg/dL (2.5-4.9); Potassium 3.3 meq/L (3.5-5.1); Sodium 146 meq/L (136-145); Total Protein 5.3 g/dL (6.4-8.2)
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
[2017-12-11] MEDS ORDERED: Potassium Chloride 25 MEQ Effervescent Tablet G-TUBE ONE (15:19)
--- NOTE | 2017-12-11 18:11 | P.PN ---
Subjective Interval history: has loose stools . On tube feeds still. No SOB at rest Physical Exam Vital signs: Vital Signs 12/10/17 20:00 12/11/17 00:00 12/11/17 04:00 Temperature 97.4 F L 98 F 98 F Pulse Rate 76 63 70 Respiratory Rate 18 Blood Pressure 109/79 112/73 Pulse Oximetry 98 98 96 12/11/17 08:00 12/11/17 12:00 12/11/17 16:00 Temperature 97.4 F L 99.2 F 98.2 F Pulse Rate 79 83 79 Respiratory Rate 18 Blood Pressure 114/80 101/77 95/69 L Pulse Oximetry 97 97 93 L Intake & Output 12/10/17 12/11/17 12/11/17 18:59 06:59 18:59 Intake Total 1200 / 1200 1300 / 1300 Balance 1200 / 1200 1300 / 1300 Weight 56.2 kg Intake: IV 1200 / 1200 1300 / 1300 D5W/NS + KCL 20 mEq Inj 1,000 1000 / 1000 1000 / 1000 ML @ 100 mls/hr IV.CONT .Q10H [facility] Rx#:[id number] Flagyl 500 MG Inj 100 ML @ 100 200 / 200 300 / 300 mls/hr IV.SIG Q6HR [facility] Rx#: [id number] Oral 0 / 0 Other: # Voids 2 Date of Last Bowel Movement 12/08/17 12/08/17 12/08/17 Narrative: awake and alert, no acute distress IRASEMA. Throat is clear. Neck no nodes palpable Chest is clear. regular rhythm no Murmur. abdomen- soft, , l+ tenderness-lower abdomen, no guarding extremities no edema- moves all extremities spontaneously Skin was dry. Neuro without deficit. Results - Labs CBC & Chem 7: 12/11/17 09:39 12/11/17 09:39 Laboratory Results - last 24 hr 12/11/17 12/11/17 09:39 09:39 WBC 3.5 L RBC 4.57 Hgb 13.3 Hct 39.4 MCV 86.3 MCH 29.1 MCHC 33.7 RDW 15.0 Plt Count 226 MPV 9.1 Neut % (Auto) 38.4 Lymph % (Auto) 40.9 [place] % (Auto) 13.6 H Eos % (Auto) 6.2 H Baso % (Auto) 0.9 Neut # (Auto) 1.4 L Lymph # (Auto) 1.4 [place] # (Auto) 0.5 Eos # (Auto) 0.2 Baso # (Auto) 0.0 WBC Differential . Differential Comment Auto diff final Sodium 146 H Potassium 3.3 L Chloride 112 H Carbon Dioxide 28.8 Anion Gap 5 BUN 3 L Creatinine 0.44 L Estimated GFR Greater than 89 Random Glucose 141 H Calcium 7.6 L Phosphorus 2.1 L Magnesium 1.6 Total Bilirubin 0.1 L AST 23 ALT 15 Alkaline Phosphatase 46 Total Protein 5.3 L Albumin 2.0 L Microbiology 12/07/17 12:43 Blood - Peripheral Aerobic Blood Culture - Preliminary No growth in 4 days 12/07/17 12:43 Blood - Peripheral Anaerobic Blood Culture - Preliminary No growth in 4 days 12/07/17 12:15 Blood - Peripheral Aerobic Blood Culture - Preliminary No growth in 4 days 12/07/17 12:15 Blood - Peripheral Anaerobic Blood Culture - Preliminary No growth in 4 days Assessment and Plan - Assessment (1) Aspiration into airway Code(s): T17.908A - Unspecified foreign body in respiratory tract, part unspecified causing other injury, initial encounter Status: Acute Plan: Keep head end up and soft diet. (2) Encephalopathy chronic Code(s): G93.49 - Other encephalopathy Status: Acute Plan: PT evaluation to walk. (3) Traumatic brain injury Code(s): S06.9X9A - Unspecified intracranial injury with loss of consciousness of unspecified duration, initial encounter Status: Acute Plan: Cont anti seizure meds (4) C. difficile diarrhea Code(s): A04.72 - Enterocolitis due to Clostridium difficile, not specified as recurrent Status: Acute - Plan Cont dificid PO
[2017-12-12] MEDS: Artificial Tears Opth Drops 15 ML Bottle EACH EYE SCH ×2 (05:57→17:45)
[2017-12-12] MEDS: KCL 20 mEq/D5W/NaCl 0.9% Inj 1,000 ML IV.CONT SCH ×2 (06:01→17:13)
[2017-12-12 07:52] LABS: Baso % (Auto) 0.7 % (0.0-2.0); Eos # (Auto) 0.3 th/mm3 (0.0-0.4); Hematocrit 39.9 % (39.0-51.0); Hemoglobin 13.3 gm/dL (13.0-17.0); Lymph # (Auto) 1.8 th/mm3 (1.0-4.8); Lymph % (Auto) 36.2 % (9.0-44.0); Mean Corpuscular HGB Conc 33.4 % (32.0-36.0); Mean Corpuscular Hemoglobin 28.9 pg (27.0-34.0); Mean Corpuscular Volume 86.5 fL (80.0-100.0); Mean Platelet Volume 8.9 fL (7.0-11.0); Mono # (Auto) 0.6 th/mm3 (0.0-0.9); Mono % (Auto) 11.8 % (0.0-8.0); Neut # (Auto) 2.3 th/mm3 (1.8-7.7); Neut % (Auto) 45.3 % (16.0-70.0); Platelet Count 222 th/mm3 (150-450); Red Blood Count 4.62 mil/mm3 (4.50-5.90); Red Cell Distribution Width 15.3 % (11.6-17.2); White Blood Count 5.1 th/mm3 (4.0-11.0)
[2017-12-12 08:22] LABS: Albumin 2.3 g/dL (3.4-5.0); Anion Gap 5 meq/L (5-15); Aspartate Aminotransferase 28 U/L (15-37); Blood Urea Nitrogen 4 mg/dL (7-18); Calcium 7.8 mg/dL (8.5-10.1); Chloride 108 meq/L (98-107); Glomerular Filtration Rate Greater Than 89 mL/min (>89); Glucose,Random 138 mg/dL (74-106); Magnesium 1.8 mg/dL (1.5-2.5); Potassium 3.6 meq/L (3.5-5.1); Sodium 142 meq/L (136-145)
[2017-12-12 08:26] LABS: Alanine Aminotransferase 19 U/L (12-78); Alkaline Phosphatase 44 U/L (45-117); Phosphorus 1.1 mg/dL (2.5-4.9); Total Protein 5.7 g/dL (6.4-8.2)
[2017-12-12] MEDS: Atenolol 25 MG Tablet PO SCH (08:58)
[2017-12-12] MEDS: levETIRAcetam 500 MG Tablet NG/OG SCH ×2 (08:58→20:26)
[2017-12-12] MEDS: QUEtiapine 25 MG Tablet NG/OG SCH ×2 (08:59→20:26)
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
[2017-12-13] MEDS: Artificial Tears Opth Drops 15 ML Bottle EACH EYE SCH ×3 (05:57→21:46)
[2017-12-13] MEDS: KCL 20 mEq/D5W/NaCl 0.9% Inj 1,000 ML IV.CONT SCH ×2 (05:57→18:21)
--- NOTE | 2017-12-13 08:42 | P.PNID ---
Subjective Remarks: Chart reviewed no fever improving diarrhea denies abdominal pain Lines: Peripheral IV catheter appears intact. Allergies/Adverse Reactions: Allergies No Known Allergies Allergy (Verified 11/23/17 11:49) Objective Vital Signs 12/12/17 12:00 12/12/17 16:00 12/12/17 20:00 Temperature 97.6 F 97.8 F 97.8 F Pulse Rate 85 87 Respiratory Rate 17 18 Blood Pressure 96/68 L 104/71 98/60 L Pulse Oximetry 98 93 L 97 12/13/17 04:00 12/13/17 08:00 Temperature 98.3 F 98.2 F Pulse Rate 92 H 97 H Respiratory Rate 16 18 Blood Pressure 97/56 L 106/60 Pulse Oximetry 95 96 Intake & Output 12/12/17 12/13/17 12/13/17 18:59 06:59 18:59 Intake Total 1440 / 1440 1500 / 1500 Balance 1440 / 1440 1500 / 1500 Weight 58.3 kg Intake: IV 1200 / 1200 900 / 900 D5W/NS + KCL 20 mEq Inj 1,000 1000 / 1000 800 / 800 ML @ 100 mls/hr IV.CONT .Q10H [facility] Rx#:[id number] Flagyl 500 MG Inj 100 ML @ 100 200 / 200 100 / 100 mls/hr IV.SIG Q6HR [facility] Rx#: [id number] Oral 240 / 240 0 / 0 Tube Feeding 600 / 600 Other: # Voids 3 # Urine Diapers 4 Date of Last Bowel Movement 12/13/17 # Bowel Movements 2 1 12/07/17 12:43 Blood - Peripheral Aerobic Blood Culture - Final No growth in 5 days 12/07/17 12:43 Blood - Peripheral Anaerobic Blood Culture - Final No growth in 5 days 12/07/17 12:15 Blood - Peripheral Aerobic Blood Culture - Final No growth in 5 days 12/07/17 12:15 Blood - Peripheral Anaerobic Blood Culture - Final No growth in 5 days Lab - Hematology Results 12/11/17 12/12/17 09:39 07:17 WBC 3.5 L 5.1 RBC 4.57 4.62 Hgb 13.3 13.3 Hct 39.4 39.9 MCV 86.3 86.5 MCH 29.1 28.9 MCHC 33.7 33.4 RDW 15.0 15.3 Plt Count 226 222 MPV 9.1 8.9 Neut % (Auto) 38.4 45.3 Lymph % (Auto) 40.9 36.2 [place] % (Auto) 13.6 H 11.8 H Eos % (Auto) 6.2 H 6.0 H Baso % (Auto) 0.9 0.7 Neut # (Auto) 1.4 L 2.3 Lymph # (Auto) 1.4 1.8 [place] # (Auto) 0.5 0.6 Eos # (Auto) 0.2 0.3 Baso # (Auto) 0.0 0.0 WBC Differential . . Differential Comment Auto diff final Auto diff final Lab - Chemistry Results 12/11/17 12/12/17 09:39 07:17 Sodium 146 H 142 Potassium 3.3 L 3.6 Chloride 112 H 108 H Carbon Dioxide 28.8 29.0 Anion Gap 5 5 BUN 3 L 4 L Creatinine 0.44 L 0.45 L Estimated GFR Greater than 89 Greater than 89 Random Glucose 141 H 138 H Calcium 7.6 L 7.8 L Phosphorus 2.1 L 1.1 L D Magnesium 1.6 1.8 Total Bilirubin 0.1 L 0.2 AST 23 28 ALT 15 19 Alkaline Phosphatase 46 44 L Total Protein 5.3 L 5.7 L Albumin 2.0 L 2.3 L Imaging: ITS Impressions Abdomen/Pelvis CT 12/07/17 00:00 CONCLUSION: 1. Diffuse colitis. 2. GJ tube in place. 3. Mild left pleural effusion, there are mild bibasilar areas of consolidation or atelectasis. Chest X-Ray 12/07/17 11:05 CONCLUSION: Negative examination. Abdomen X-Ray 12/07/17 11:06 CONCLUSION: Given the limitations of the plain film exam. Consider CT for further evaluation of the abdomen and pelvis. Physical Exam: GENERAL: Alert and oriented, no acute distress. HEENT: Pupils reactive to light. Extraocular movements intact. No icterus. NECK: Supple without adenopathy. No swelling. LUNGS: Clear to auscultation with slight rhonchi at the bases. HEART: Regular S1-S2 without murmurs rubs or gallops. ABDOMEN: Positive bowel sounds, soft, mildly disteded and not tender to palpation EXTREMITIES: No clubbing cyanosis or edema. SKIN: No rash. NEUROLOGIC: Prominenet cognitive deficits, stable PSYCH: Calm and cooperative. Peripheral IV line intact without evidence of infection. Assessment and Plan - Plan Impression: Fever. Clinically stable and temperature has improved. Diffiuse c difficile colitis, Hypervirulebnt strai n No e/o PNA on CXR Recommendations: avoid systemic abx Monitor white blood cell count. Continue Dificid. dc IV flagyl cont oral vancomycin vanco taper after 2 weeks of tx
[2017-12-13] MEDS: Atenolol 25 MG Tablet PO SCH (08:50)
[2017-12-13] MEDS: levETIRAcetam 500 MG Tablet NG/OG SCH ×2 (08:51→21:45)
[2017-12-13] MEDS: QUEtiapine 25 MG Tablet NG/OG SCH ×2 (08:52→21:45)
--- NOTE | 2017-12-13 11:56 | P.PNIM ---
Subjective Interval history: f/u; c-diff colitis in no acute distress. denies pain. no fever. Physical Exam Vital signs: Vital Signs 12/12/17 12:00 12/12/17 16:00 12/12/17 20:00 Temperature 97.6 F 97.8 F 97.8 F Pulse Rate 85 87 Respiratory Rate 17 18 Blood Pressure 96/68 L 104/71 98/60 L Pulse Oximetry 98 93 L 97 12/13/17 04:00 12/13/17 08:00 Temperature 98.3 F 98.2 F Pulse Rate 92 H 97 H Respiratory Rate 16 18 Blood Pressure 97/56 L 106/60 Pulse Oximetry 95 96 Intake & Output 12/12/17 12/13/17 12/13/17 18:59 06:59 18:59 Intake Total 1440 / 1440 1500 / 1500 Balance 1440 / 1440 1500 / 1500 Weight 58.3 kg Intake: IV 1200 / 1200 900 / 900 D5W/NS + KCL 20 mEq Inj 1,000 1000 / 1000 800 / 800 ML @ 100 mls/hr IV.CONT .Q10H [facility] Rx#:[id number] Flagyl 500 MG Inj 100 ML @ 100 200 / 200 100 / 100 mls/hr IV.SIG Q6HR [facility] Rx#: [id number] Oral 240 / 240 0 / 0 Tube Feeding 600 / 600 Other: # Voids 3 # Urine Diapers 4 Date of Last Bowel Movement 12/13/17 12/13/17 # Bowel Movements 2 1 - Constitutional no acute distress - Routine Respiratory Exam Present: CTA bilaterally - Routine Cardiovascular Exam Present: RRR - Routine Abdominal Exam Present: soft - Routine Extremities Exam Comments: no pedal edema. - Routine Neurological Exam Present: alert Results - Labs CBC & Chem 7: 12/12/17 07:17 12/12/17 07:17 Microbiology 12/07/17 12:43 Blood - Peripheral Aerobic Blood Culture - Final No growth in 5 days 12/07/17 12:43 Blood - Peripheral Anaerobic Blood Culture - Final No growth in 5 days 12/07/17 12:15 Blood - Peripheral Aerobic Blood Culture - Final No growth in 5 days 12/07/17 12:15 Blood - Peripheral Anaerobic Blood Culture - Final No growth in 5 days Assessment and Plan - Assessment (1) Traumatic brain injury Code(s): S06.9X9A - Unspecified intracranial injury with loss of consciousness of unspecified duration, initial encounter Status: Acute (2) C. difficile diarrhea Code(s): A04.72 - Enterocolitis due to Clostridium difficile, not specified as recurrent Status: Acute - Plan Sepsis -due to Recurrent c diff colitis- -temps better. - CT of abdomen/pelvis- shows diffuse colitis- 12/07 history of C. difficile colitis- -s/p Oral vancomycin per ID x 10 days - completed 11/21 and prior to this had treatment tapering - reviewed old EMR - reviewed EMR- hypervirulent strain per ID notes - if recurs- start dificid -ID evaluation appreciated; will continue with oral Vanco and Dificid. Right subdural hematoma 18 mm (w/ 15 mm shift)-stable TBI with neurocognitive defects - S/P bone flap on 11/11/17 - Placement for rehab needed - PT/OT - Keppra -Continue Seroquel Seborrheic dermatitis - Improved/Resolved Respiratory failure - tracheostomy al most closed Rib fractures - good sats at room air Inadequate po - on PEG tube feedings - speech ff - PEG care routine - dietitian ff along Hypertension- now BP on low side; will hold Atenolol. Appears depressed- affect blunt- but spoke more today with me Hypothyroidism; continue Synthroid. DVT prophylaxis Lovenox, SCDs
[2017-12-14] MEDS: KCL 20 mEq/D5W/NaCl 0.9% Inj 1,000 ML IV.CONT SCH ×5 (00:08→21:19)
[2017-12-14] MEDS: Artificial Tears Opth Drops 15 ML Bottle EACH EYE SCH ×3 (07:03→21:21)
[2017-12-14 09:29] LABS: Anion Gap 9 meq/L (5-15); Blood Urea Nitrogen 6 mg/dL (7-18); Calcium 8.5 mg/dL (8.5-10.1); Chloride 103 meq/L (98-107); Glomerular Filtration Rate Greater Than 89 mL/min (>89); Glucose,Random 305 mg/dL (74-106); Phosphorus 1.7 mg/dL (2.5-4.9); Potassium 4.5 meq/L (3.5-5.1)
[2017-12-14 09:30] LABS: Sodium 136 meq/L (136-145)
[2017-12-14] MEDS: QUEtiapine 25 MG Tablet NG/OG SCH ×2 (09:56→21:20)
[2017-12-14] MEDS: levETIRAcetam 500 MG Tablet NG/OG SCH ×2 (09:56→21:20)
--- NOTE | 2017-12-14 11:20 | P.PNIM ---
Subjective Interval history: in no acute distress. no fever. looks comfortable. Physical Exam Vital signs: Vital Signs 12/13/17 12:00 12/13/17 16:00 12/13/17 20:00 Temperature 97.5 F L 98 F 97.6 F Pulse Rate 101 H 92 H 98 H Respiratory Rate 18 18 20 Blood Pressure 105/55 L 109/65 125/82 Pulse Oximetry 97 95 97 12/13/17 20:39 12/14/17 00:00 12/14/17 04:00 Temperature 97.6 F 97.6 F Pulse Rate 79 79 Respiratory Rate 18 18 Blood Pressure 116/75 116/75 Pulse Oximetry 96 97 97 12/14/17 08:00 Temperature 98 F Pulse Rate 84 Respiratory Rate 18 Blood Pressure 107/74 Pulse Oximetry 97 Intake & Output 12/13/17 12/14/17 12/14/17 18:59 06:59 18:59 Intake Total 1480 / 1480 1950 / 1950 1000 / 1000 Output Total 425 / 425 Balance 1480 / 1480 1525 / 1525 1000 / 1000 Intake: IV 1000 / 1000 1000 / 1000 1000 / 1000 D5W/NS + KCL 20 mEq Inj 1,000 1000 / 1000 1000 / 1000 1000 / 1000 ML @ 100 mls/hr IV.CONT .Q10H [facility] Rx#:[id number] Oral 480 / 480 Tube Feeding 750 / 750 Tube Irrigant 200 / 200 Output: Urine 425 / 425 Other: # Voids 2 # Urine Diapers 4 Date of Last Bowel Movement 12/13/17 12/15/17 # Bowel Movements 2 2 - Constitutional no acute distress - Routine Respiratory Exam Present: CTA bilaterally - Routine Cardiovascular Exam Present: RRR - Routine Abdominal Exam Present: soft - Routine Extremities Exam Comments: no pedal edema. - Routine Neurological Exam Present: alert Results - Labs CBC & Chem 7: 12/12/17 07:17 12/14/17 08:22 Laboratory Results - last 24 hr 12/14/17 08:22 Sodium 136 Potassium 4.5 Chloride 103 Carbon Dioxide 24.0 Anion Gap 9 BUN 6 L Creatinine 0.50 L Estimated GFR Greater than 89 Random Glucose 305 H Calcium 8.5 Phosphorus 1.7 L Assessment and Plan - Assessment (1) Traumatic brain injury Code(s): S06.9X9A - Unspecified intracranial injury with loss of consciousness of unspecified duration, initial encounter Status: Acute (2) C. difficile diarrhea Code(s): A04.72 - Enterocolitis due to Clostridium difficile, not specified as recurrent Status: Acute - Plan Sepsis -due to Recurrent c diff colitis- -temps better. - CT of abdomen/pelvis- shows diffuse colitis- 12/07 history of C. difficile colitis- -s/p Oral vancomycin per ID x 10 days - completed 11/21 and prior to this had treatment tapering - - hypervirulent strain per ID notes - -ID evaluation appreciated; will continue with oral Vanco and Dificid. Right subdural hematoma 18 mm (w/ 15 mm shift)-stable TBI with neurocognitive defects - S/P bone flap on 11/11/17 - Placement for rehab needed - PT/OT - Daniel -Continue Seroquel Seborrheic dermatitis - Improved/Resolved Respiratory failure - tracheostomy al most closed Rib fractures - good sats at room air Inadequate po - on PEG tube feedings - speech ff - PEG care routine - dietitian ff along Hypertension- now BP on low side; will hold Atenolol. Appears depressed- affect blunt- Hypothyroidism; continue Synthroid. DVT prophylaxis Lovenox, SCDs
[2017-12-15] MEDS: KCL 20 mEq/D5W/NaCl 0.9% Inj 1,000 ML IV.CONT SCH ×3 (00:47→18:42)
[2017-12-15] MEDS: Artificial Tears Opth Drops 15 ML Bottle EACH EYE SCH ×3 (05:48→21:16)
[2017-12-15] MEDS: levETIRAcetam 500 MG Tablet NG/OG SCH ×2 (09:23→21:15)
[2017-12-15] MEDS: QUEtiapine 25 MG Tablet NG/OG SCH ×2 (09:23→21:15)
--- NOTE | 2017-12-15 11:12 | P.PNIM ---
Subjective Interval history: in no distress. looks comfortable. no fever. Physical Exam Vital signs: Vital Signs 12/14/17 12:00 12/14/17 16:00 12/14/17 20:00 Temperature 97.9 F 98.1 F 97.9 F Pulse Rate 94 H 91 H 94 H Respiratory Rate 18 18 18 Blood Pressure 135/78 124/66 115/72 Pulse Oximetry 97 97 98 12/15/17 00:00 12/15/17 04:00 12/15/17 08:00 Temperature 97.8 F 97.8 F 97.9 F Pulse Rate 98 H 88 93 H Respiratory Rate 18 18 20 Blood Pressure 109/68 111/69 98/57 L Pulse Oximetry 97 95 95 Intake & Output 12/14/17 12/15/17 12/15/17 18:59 06:59 18:59 Intake Total 1920 / 1920 1280 / 1280 1000 / 1000 Output Total 1300 / 1300 Balance 620 / 620 1280 / 1280 1000 / 1000 Weight 58 kg Intake: IV 1800 / 1800 1000 / 1000 D5W/NS + KCL 20 mEq Inj 1,000 1800 / 1800 1000 / 1000 ML @ 100 mls/hr IV.CONT .Q10H [facility] Rx#:[id number] Oral 120 / 120 240 / 240 Tube Feeding 840 / 840 Water Bolus Amount 200 / 200 Output: Urine 1300 / 1300 Other: # Voids 2 Date of Last Bowel Movement 12/15/17 # Bowel Movements 2 2 - Constitutional no acute distress - Routine Respiratory Exam Present: CTA bilaterally - Routine Cardiovascular Exam Present: RRR - Routine Abdominal Exam Present: soft - Routine Extremities Exam Comments: no pedal edema. - Routine Neurological Exam Present: alert Results - Labs CBC & Chem 7: 12/12/17 07:17 12/14/17 08:22 Assessment and Plan - Assessment (1) Traumatic brain injury Code(s): S06.9X9A - Unspecified intracranial injury with loss of consciousness of unspecified duration, initial encounter Status: Acute (2) C. difficile diarrhea Code(s): A04.72 - Enterocolitis due to Clostridium difficile, not specified as recurrent Status: Acute - Plan Sepsis -due to Recurrent c diff colitis- -temps better. - CT of abdomen/pelvis- shows diffuse colitis- 12/07 history of C. difficile colitis- -s/p Oral vancomycin per ID x 10 days - completed 11/21 and prior to this had treatment tapering - - hypervirulent strain per ID notes - -ID evaluation appreciated; will continue with oral Vanco and Dificid. Right subdural hematoma 18 mm (w/ 15 mm shift)-stable TBI with neurocognitive defects - S/P bone flap on 11/11/17 - Placement for rehab needed - PT/OT - Keppra -Continue Seroquel Seborrheic dermatitis - Improved/Resolved Respiratory failure - tracheostomy al most closed Rib fractures - good sats at room air Inadequate po - on PEG tube feedings - speech ff - PEG care routine - dietitian ff along Hypertension- now BP on low side; will hold Atenolol. Hypothyroidism; continue Synthroid. DVT prophylaxis Lovenox, SCDs
[2017-12-16] MEDS: KCL 20 mEq/D5W/NaCl 0.9% Inj 1,000 ML IV.CONT SCH ×2 (05:21→17:23)
[2017-12-16] MEDS: Artificial Tears Opth Drops 15 ML Bottle EACH EYE SCH ×3 (05:22→21:20)
[2017-12-16] MEDS: levETIRAcetam 500 MG Tablet NG/OG SCH ×2 (08:29→21:19)
[2017-12-16] MEDS: QUEtiapine 25 MG Tablet NG/OG SCH ×2 (08:29→21:18)
--- NOTE | 2017-12-16 11:21 | P.PNIM ---
Subjective Interval history: in no acute distress. looks comfortable. no fever. Physical Exam Vital signs: Vital Signs 12/15/17 12:00 12/15/17 16:00 12/15/17 20:00 Temperature 98.3 F 98 F 99 F Pulse Rate 94 H 92 H 89 Respiratory Rate 20 20 17 Blood Pressure 114/64 107/63 110/68 Pulse Oximetry 95 94 L 95 12/16/17 00:00 12/16/17 04:00 12/16/17 08:00 Temperature 98.1 F 97.9 F 98.4 F Pulse Rate 94 H 81 87 Respiratory Rate 18 17 17 Blood Pressure 121/78 111/78 112/66 Pulse Oximetry 94 L 97 96 Intake & Output 12/15/17 12/16/17 12/16/17 18:59 06:59 18:59 Intake Total 2240 / 2240 2039 / 0 Balance 2240 / 2240 2039 / 2039 Weight 56.1 kg Intake: IV 1999 / 1999 1000 / 1000 D5W/NS + KCL 20 mEq Inj 1,000 1999 / 1999 1000 / 1000 ML @ 100 mls/hr IV.CONT .Q10H [facility] Rx#:[id number] Oral 240 / 240 Tube Feeding 840 / 840 Water Bolus Amount 200 / 200 Other: # Incontinent Voids 4 3 Date of Last Bowel Movement 12/15/17 # Bowel Movements 1 # Incontinent Bowel Movements 4 - Constitutional no acute distress - Routine Respiratory Exam Present: CTA bilaterally - Routine Cardiovascular Exam Present: RRR - Routine Abdominal Exam Present: soft - Routine Extremities Exam Comments: no pedal edema. Results - Labs CBC & Chem 7: 12/12/17 07:17 12/14/17 08:22 Assessment and Plan - Assessment (1) Traumatic brain injury Code(s): S06.9X9A - Unspecified intracranial injury with loss of consciousness of unspecified duration, initial encounter Status: Acute (2) C. difficile diarrhea Code(s): A04.72 - Enterocolitis due to Clostridium difficile, not specified as recurrent Status: Acute - Plan Sepsis -due to Recurrent c diff colitis- -temps better. - CT of abdomen/pelvis- shows diffuse colitis- 12/07 history of C. difficile colitis- -s/p Oral vancomycin per ID x 10 days - completed 11/21 and prior to this had treatment tapering - - hyper virulent strain per ID notes - -ID evaluation appreciated; will continue with oral Vanco and Dificid. Right subdural hematoma 18 mm (w/ 15 mm shift)-stable TBI with neurocognitive defects - S/P bone flap on 11/11/17 - Placement for rehab needed - PT/OT - Daniel -Continue Seroquel Seborrheic dermatitis - Improved/Resolved Respiratory failure - tracheostomy al most closed Rib fractures - good sats at room air Inadequate po - on PEG tube feedings - speech ff - PEG care routine - dietitian ff along Hypertension- now BP on low side; will hold Atenolol. Hypothyroidism; continue Synthroid. DVT prophylaxis Lovenox, SCDs
[2017-12-17] MEDS: KCL 20 mEq/D5W/NaCl 0.9% Inj 1,000 ML IV.CONT SCH ×3 (03:42→21:45)
[2017-12-17] MEDS: Artificial Tears Opth Drops 15 ML Bottle EACH EYE SCH ×3 (06:18→21:13)
[2017-12-17] MEDS: QUEtiapine 25 MG Tablet NG/OG SCH ×2 (08:40→20:54)
[2017-12-17] MEDS: levETIRAcetam 500 MG Tablet NG/OG SCH ×2 (08:40→20:54)
--- NOTE | 2017-12-17 12:01 | P.PNIM ---
Subjective Interval history: in no distress. looks comfortable. no fever. Physical Exam Vital signs: Vital Signs 12/16/17 16:26 12/16/17 20:00 12/17/17 00:00 Temperature 97.4 F L 98.3 F 99.0 F Pulse Rate 72 92 H 93 H Respiratory Rate 20 18 18 Blood Pressure 114/65 121/77 107/73 Pulse Oximetry 95 96 95 12/17/17 04:00 Temperature 98.0 F Pulse Rate 86 Respiratory Rate 18 Blood Pressure 114/77 Pulse Oximetry 96 Intake & Output 12/16/17 12/17/17 12/17/17 18:59 06:59 18:59 Intake Total 1240 / 1240 2140 / 2140 Balance 1240 / 1240 2140 / 2140 Weight 55.7 kg Intake: IV 1000 / 1000 1000 / 1000 D5W/NS + KCL 20 mEq Inj 1,000 1000 / 1000 1000 / 1000 ML @ 100 mls/hr IV.CONT .Q10H [facility] Rx#:[id number] Oral 240 / 240 Tube Feeding 840 / 840 Water Bolus Amount 300 / 300 Other: # Incontinent Voids 2 Date of Last Bowel Movement 12/15/17 12/15/17 # Bowel Movements 1 - Routine Respiratory Exam Present: CTA bilaterally - Routine Cardiovascular Exam Present: RRR - Routine Abdominal Exam Present: soft Results - Labs CBC & Chem 7: 12/12/17 07:17 12/14/17 08:22 Assessment and Plan - Assessment (1) Traumatic brain injury Code(s): S06.9X9A - Unspecified intracranial injury with loss of consciousness of unspecified duration, initial encounter Status: Acute (2) C. difficile diarrhea Code(s): A04.72 - Enterocolitis due to Clostridium difficile, not specified as recurrent Status: Acute - Plan Sepsis -due to Recurrent c diff colitis- -temps better. - CT of abdomen/pelvis- shows diffuse colitis- 12/07 history of C. difficile colitis- -s/p Oral vancomycin per ID x 10 days - completed 11/21 and prior to this had treatment tapering - - hyper virulent strain per ID notes - -ID evaluation appreciated; will continue with oral Vanco and Dificid. Right subdural hematoma 18 mm (w/ 15 mm shift)-stable TBI with neurocognitive defects - S/P bone flap on 11/11/17 - Placement for rehab needed - PT/OT - Daniel -Continue Seroquel Seborrheic dermatitis - Improved/Resolved Respiratory failure - tracheostomy al most closed Rib fractures - good sats at room air Inadequate po - on PEG tube feedings - speech ff - PEG care routine - dietitian ff along Hypertension- BP controlled; continue to hold Atenolol. Hypothyroidism; continue Synthroid. DVT prophylaxis Lovenox, SCDs
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
--- NOTE | 2017-12-17 23:18 | P.PNID ---
Subjective Remarks: Chart reviewed no fever improving diarrhea denies abdominal pain Antibiotics: po vancomycin dificid Lines: Peripheral IV catheter appears intact. Allergies/Adverse Reactions: Allergies No Known Allergies Allergy (Verified 11/23/17 11:49) Objective Vital Signs 12/17/17 00:00 12/17/17 04:00 12/17/17 08:00 Temperature 99.0 F 98.0 F 98.4 F Pulse Rate 93 H 86 86 Respiratory Rate 18 18 17 Blood Pressure 107/73 114/77 102/59 L Pulse Oximetry 95 96 94 L 12/17/17 12:00 12/17/17 16:00 12/17/17 22:30 Temperature 97.9 F 97.8 F 97.9 F Pulse Rate 80 85 80 Respiratory Rate 17 17 18 Blood Pressure 112/69 112/63 110/68 Pulse Oximetry 96 95 95 Intake & Output 12/17/17 12/17/17 12/18/17 06:59 18:59 06:59 Intake Total 2140 / 2140 1000 / 1000 1000 / 1000 Balance 2140 / 2140 1000 / 1000 1000 / 1000 Weight 55.7 kg Intake: IV 1000 / 1000 1000 / 1000 1000 / 1000 D5W/NS + KCL 20 mEq Inj 1,000 1000 / 1000 1000 / 1000 1000 / 1000 ML @ 100 mls/hr IV.CONT .Q10H [facility] Rx#:[id number] Tube Feeding 840 / 840 Water Bolus Amount 300 / 300 Other: Date of Last Bowel Movement 12/15/17 Imaging: ITS Impressions Abdomen/Pelvis CT 12/07/17 00:00 CONCLUSION: 1. Diffuse colitis. 2. GJ tube in place. 3. Mild left pleural effusion, there are mild bibasilar areas of consolidation or atelectasis. Chest X-Ray 12/07/17 11:05 CONCLUSION: Negative examination. Abdomen X-Ray 12/07/17 11:06 CONCLUSION: Given the limitations of the plain film exam. Consider CT for further evaluation of the abdomen and pelvis. Physical Exam: GENERAL: Alert and oriented, no acute distress. HEENT: Pupils reactive to light. Extraocular movements intact. No icterus. NECK: Supple without adenopathy. No swelling. LUNGS: Clear to auscultation with slight rhonchi at the bases. HEART: Regular S1-S2 without murmurs rubs or gallops. ABDOMEN: Positive bowel sounds, soft, mildly disteded and not tender to palpation EXTREMITIES: No clubbing cyanosis or edema. SKIN: No rash. NEUROLOGIC: awake alert able to talk ambulates with walker practically w/o assistance PSYCH: Calm and cooperative. Peripheral IV line intact without evidence of infection. Assessment and Plan - Plan Impression: Fever. Clinically stable and temperature has improved. Diffiuse c difficile colitis, Hypervirulebnt strai n No e/o PNA on CXR Recommendations: avoid systemic abx Monitor white blood cell count. Complete Dificid tomorrow cont oral vancomycin vanco taper after 2 weeks of tx: vanco 125 mg po QID x 7days,then vanco 125 mg po BID x 7days,then vanco 125 mg po daily x 7days,then vanco 125 mg po Q48 hrs x 7days,then vanco 125 mg po Q72 hrs x 5 doses avoid unesserary systemic abx will see as needed
[2017-12-18] MEDS: KCL 20 mEq/D5W/NaCl 0.9% Inj 1,000 ML IV.CONT SCH ×3 (03:20→23:56)
[2017-12-18] MEDS: Artificial Tears Opth Drops 15 ML Bottle EACH EYE SCH ×3 (05:23→21:01)
[2017-12-18] MEDS: QUEtiapine 25 MG Tablet NG/OG SCH ×2 (10:07→20:03)
[2017-12-18] MEDS: levETIRAcetam 500 MG Tablet NG/OG SCH ×2 (10:07→20:03)
--- NOTE | 2017-12-18 11:17 | P.PNIM ---
Subjective Interval history: in no acute distress. afebrile. still with loose BM. d/w the RN. Physical Exam Vital signs: Vital Signs 12/17/17 12:00 12/17/17 16:00 12/17/17 22:30 Temperature 97.9 F 97.8 F 97.9 F Pulse Rate 80 85 80 Respiratory Rate 17 17 18 Blood Pressure 112/69 112/63 110/68 Pulse Oximetry 96 95 95 12/18/17 00:00 12/18/17 06:00 12/18/17 08:00 Temperature 98 F 98 F 98.4 F Pulse Rate 113 H 90 91 H Respiratory Rate 18 16 14 Blood Pressure 124/83 116/65 126/67 Pulse Oximetry 97 96 94 L Intake & Output 12/17/17 12/18/17 12/18/17 18:59 06:59 18:59 Intake Total 1000 / 1000 1999 / 1999 120 / 120 Output Total 100 / 100 Balance 1000 / 1000 1999 / 1999 20 / 20 Weight 58.3 kg Intake: IV 1000 / 1000 1999 / 1999 D5W/NS + KCL 20 mEq Inj 1,000 1000 / 1000 1999 / 1999 ML @ 100 mls/hr IV.CONT .Q10H [facility] Rx#:[id number] Oral 120 / 120 Output: Urine 100 / 100 Other: # Voids 6 Date of Last Bowel Movement 12/15/17 12/18/17 12/18/17 # Bowel Movements 4 - Constitutional no acute distress - Routine Respiratory Exam Present: CTA bilaterally - Routine Cardiovascular Exam Present: RRR - Routine Abdominal Exam Present: soft - Routine Extremities Exam Comments: no pedal edema. Results - Labs CBC & Chem 7: 12/12/17 07:17 12/14/17 08:22 Assessment and Plan - Assessment (1) Traumatic brain injury Code(s): S06.9X9A - Unspecified intracranial injury with loss of consciousness of unspecified duration, initial encounter Status: Acute (2) C. difficile diarrhea Code(s): A04.72 - Enterocolitis due to Clostridium difficile, not specified as recurrent Status: Acute - Plan Sepsis -due to Recurrent c diff colitis- -temps better. - CT of abdomen/pelvis- shows diffuse colitis- 12/07 history of C. difficile colitis- -s/p Oral vancomycin per ID x 10 days - completed 11/21 and prior to this had treatment tapering - - hyper virulent strain per ID notes - -ID f/u appreciated; completed the course of Dificid. 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 Hypothyroidism; continue Synthroid. DVT prophylaxis Lovenox, SCDs
[2017-12-19] MEDS: Artificial Tears Opth Drops 15 ML Bottle EACH EYE SCH ×3 (05:04→21:23)
[2017-12-19] MEDS: QUEtiapine 25 MG Tablet NG/OG SCH ×2 (09:44→21:22)
[2017-12-19] MEDS: levETIRAcetam 500 MG Tablet NG/OG SCH ×2 (09:44→21:22)
[2017-12-19] MEDS: KCL 20 mEq/D5W/NaCl 0.9% Inj 1,000 ML IV.CONT SCH ×3 (09:49→21:21)
[2017-12-19 10:24] LABS: Anion Gap 8 meq/L (5-15); Blood Urea Nitrogen 10 mg/dL (7-18); Calcium 8.6 mg/dL (8.5-10.1); Carbon Dioxide 28.1 meq/L (21.0-32.0); Chloride 100 meq/L (98-107); Glomerular Filtration Rate Greater Than 89 mL/min (>89); Glucose,Random 297 mg/dL (74-106); Potassium 4.1 meq/L (3.5-5.1); Sodium 136 meq/L (136-145)
--- NOTE | 2017-12-19 11:23 | P.PNIM ---
Subjective Interval history: in no acute distress. had a loose BM last night. has minimal to mild abdominal pain. no fever. d/w the RN. Physical Exam Vital signs: Vital Signs 12/18/17 12:00 12/18/17 16:00 12/18/17 20:00 Temperature 99.9 F H 98.3 F 98 F Pulse Rate 103 H 98 H 106 H Respiratory Rate 16 14 18 Blood Pressure 114/83 112/72 106/65 Pulse Oximetry 95 96 95 12/19/17 00:00 12/19/17 04:00 12/19/17 08:00 Temperature 98.2 F 98.0 F 97.3 F L Pulse Rate 86 80 86 Respiratory Rate 18 16 17 Blood Pressure 104/63 108/65 119/70 Pulse Oximetry 93 L 95 96 Intake & Output 12/18/17 12/19/17 12/19/17 18:59 06:59 18:59 Intake Total 1120 / 1120 2380 / 2380 1000 / 1000 Output Total 100 / 100 Balance 1020 / 1020 2380 / 2380 1000 / 1000 Weight 58 kg Intake: IV 1000 / 1000 1000 / 1000 1000 / 1000 D5W/NS + KCL 20 mEq Inj 1,000 1000 / 1000 1000 / 1000 1000 / 1000 ML @ 100 mls/hr IV.CONT .Q10H [facility] BEDS AT [facility] Rx#:[id number] Oral 120 / 120 240 / 240 Tube Feeding 840 / 840 Water Bolus Amount 300 / 300 Output: Urine 100 / 100 Other: # Voids 6 3 Date of Last Bowel Movement 12/18/17 12/19/17 12/19/17 # Bowel Movements 2 1 - Constitutional no acute distress - Routine Respiratory Exam Present: CTA bilaterally - Routine Cardiovascular Exam Present: RRR - Routine Abdominal Exam Present: soft - Routine Extremities Exam Comments: no pedal edema. Results - Labs CBC & Chem 7: 12/12/17 07:17 12/19/17 09:09 Laboratory Results - last 24 hr 12/19/17 09:09 Sodium 136 Potassium 4.1 Chloride 100 Carbon Dioxide 28.1 Anion Gap 8 BUN 10 Creatinine 0.55 L Estimated GFR Greater than 89 Random Glucose 297 H Calcium 8.6 Assessment and Plan - Assessment (1) Traumatic brain injury Code(s): S06.9X9A - Unspecified intracranial injury with loss of consciousness of unspecified duration, initial encounter Status: Acute (2) C. difficile diarrhea Code(s): A04.72 - Enterocolitis due to Clostridium difficile, not specified as recurrent Status: Acute - Plan Sepsis -due to Recurrent c diff colitis- - CT of abdomen/pelvis- shows diffuse colitis- 12/07 -s/p Oral vancomycin per ID x 10 days - completed 11/21 and prior to this had treatment tapering - - hyper virulent strain per ID notes - -ID f/u appreciated; completed the course of Dificid. after two weeks of treatment with Vanco; will continue with vanco taper ( will start on 12/24/17); vanco 125 mg po QID x 7days,then vanco 125 mg po BID x 7days,then vanco 125 mg po daily x 7days,then vanco 125 mg po Q48 hrs x 7days,then vanco 125 mg po Q72 hrs x 5 doses Right subdural hematoma 18 mm (w/ 15 mm shift)-stable TBI with neurocognitive defects - S/P bone flap on 11/11/17 - Placement for rehab needed - PT/OT - Harmanra -Continue Seroquel Seborrheic dermatitis - Improved/Resolved Respiratory failure - tracheostomy al most closed Rib fractures - good sats at room air Inadequate po - on PEG tube feedings - speech ff - PEG care routine - dietitian ff along Hypertension- BP controlled; continue to hold Atenolol. Hypothyroidism; continue Synthroid. DVT prophylaxis Lovenox, SCDs
[2017-12-20] MEDS: Artificial Tears Opth Drops 15 ML Bottle EACH EYE SCH ×3 (05:40→21:29)
[2017-12-20] MEDS: levETIRAcetam 500 MG Tablet NG/OG SCH ×2 (08:39→21:27)
[2017-12-20] MEDS: QUEtiapine 25 MG Tablet NG/OG SCH ×2 (08:39→21:27)
[2017-12-20] MEDS: KCL 20 mEq/D5W/NaCl 0.9% Inj 1,000 ML IV.CONT SCH ×2 (08:39→21:35)
--- NOTE | 2017-12-20 11:10 | P.PNIM ---
Subjective Interval history: in no acute distress. no fever. looks comfortable. Physical Exam Vital signs: Vital Signs 12/19/17 12:00 12/19/17 16:00 12/19/17 20:00 Temperature 97.9 F 98.2 F 98.1 F Pulse Rate 93 H 94 H 96 H Respiratory Rate 17 17 18 Blood Pressure 120/67 116/67 113/72 Pulse Oximetry 95 95 95 12/20/17 00:00 12/20/17 04:00 12/20/17 08:00 Temperature 98.4 F 97.9 F 98.2 F Pulse Rate 92 H 89 89 Respiratory Rate 18 18 17 Blood Pressure 111/72 125/71 110/66 Pulse Oximetry 96 95 95 Intake & Output 12/19/17 12/20/17 12/20/17 18:59 06:59 18:59 Intake Total 1120 / 1120 2040 / 2040 1000 / 1000 Balance 1120 / 1120 2040 / 2040 1000 / 1000 Weight 56.9 kg Intake: IV 1000 / 1000 1000 / 1000 1000 / 1000 D5W/NS + KCL 20 mEq Inj 1,000 1000 / 1000 1000 / 1000 1000 / 1000 ML @ 100 mls/hr IV.CONT .Q10H [facility] Rx#:[id number] Oral 120 / 120 0 / 0 Tube Feeding 840 / 840 Water Bolus Amount 200 / 200 Other: # Incontinent Voids 3 # Urine Diapers 4 Date of Last Bowel Movement 12/19/17 12/20/17 # Bowel Movements 2 # Incontinent Bowel Movements 1 - Routine Respiratory Exam Present: CTA bilaterally - Routine Cardiovascular Exam Present: RRR - Routine Abdominal Exam Present: soft - Routine Extremities Exam Comments: no pedal edema. - Routine Neurological Exam Present: alert Results - Labs CBC & Chem 7: 12/12/17 07:17 12/19/17 09:09 Assessment and Plan - Assessment (1) Traumatic brain injury Code(s): S06.9X9A - Unspecified intracranial injury with loss of consciousness of unspecified duration, initial encounter Status: Acute (2) C. difficile diarrhea Code(s): A04.72 - Enterocolitis due to Clostridium difficile, not specified as recurrent Status: Acute - Plan Sepsis -due to Recurrent c diff colitis- - CT of abdomen/pelvis- shows diffuse colitis- 12/07 -s/p Oral vancomycin per ID x 10 days - completed 11/21 and prior to this had treatment tapering - - hyper virulent strain per ID notes - -ID f/u appreciated; completed the course of Dificid. after two weeks of treatment with Vanco; will continue with vanco taper ( will start on 12/24/17); vanco 125 mg po QID x 7days,then vanco 125 mg po BID x 7days,then vanco 125 mg po daily x 7days,then vanco 125 mg po Q48 hrs x 7days,then vanco 125 mg po Q72 hrs x 5 doses Right subdural hematoma 18 mm (w/ 15 mm shift)-stable TBI with neurocognitive defects - S/P bone flap on 11/11/17 - Placement for rehab needed - PT/OT - Daniel -Continue Seroquel Seborrheic dermatitis - Improved/Resolved Respiratory failure - tracheostomy al most closed Rib fractures - good sats at room air Inadequate po - on PEG tube feedings - speech ff - PEG care routine - dietitian ff along Hypertension- BP controlled; continue to hold Atenolol. Hypothyroidism; continue Synthroid. DVT prophylaxis Lovenox, SCDs
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
--- NOTE | 2017-12-20 18:59 | P.PN ---
Subjective Interval history: Awake and in no distress. Off O2 . Has loose stools Physical Exam Vital signs: Vital Signs 12/19/17 20:00 12/20/17 00:00 12/20/17 04:00 Temperature 98.1 F 98.4 F 97.9 F Pulse Rate 96 H 92 H 89 Respiratory Rate 18 18 18 Blood Pressure 113/72 111/72 125/71 Pulse Oximetry 95 96 95 12/20/17 08:00 12/20/17 12:00 12/20/17 16:00 Temperature 98.2 F 98.2 F 97.9 F Pulse Rate 89 96 H 99 H Respiratory Rate 17 17 17 Blood Pressure 110/66 120/75 110/65 Pulse Oximetry 95 95 94 L Intake & Output 12/19/17 12/20/17 12/20/17 18:59 06:59 18:59 Intake Total 1120 / 1120 2040 / 2040 2200 / 2200 Output Total 0 / 0 Balance 1120 / 1120 2040 / 2040 2200 / 2200 Weight 56.9 kg Intake: IV 1000 / 1000 1000 / 1000 1000 / 1000 D5W/NS + KCL 20 mEq Inj 1,000 1000 / 1000 1000 / 1000 1000 / 1000 ML @ 100 mls/hr IV.CONT .Q10H [facility] Rx#:[id number] Oral 120 / 120 0 / 0 120 / 120 Tube Feeding 840 / 840 840 / 840 Water Bolus Amount 200 / 200 240 / 240 Output: Urine 0 / 0 Other: # Voids 2 # Incontinent Voids 3 3 # Urine Diapers 4 2 Date of Last Bowel Movement 12/19/17 12/20/17 12/20/17 # Bowel Movements 2 2 # Incontinent Bowel Movements 1 2 Narrative: awake and alert, no acute distress Throat is clear. Chest is clear. regular rhythm no Murmur. abdomen- soft, , l+ tenderness- lower abdomen, no guarding PEG IN PLACE extremities no edema- moves all extremities spontaneously Skin was dry. No focal Neuro deficits. Results - Labs CBC & Chem 7: 12/12/17 07:17 12/19/17 09:09 Assessment and Plan - Assessment (1) Aspiration into airway Code(s): T17.908A - Unspecified foreign body in respiratory tract, part unspecified causing other injury, initial encounter Status: Acute (2) Encephalopathy chronic Code(s): G93.49 - Other encephalopathy Status: Acute (3) Traumatic brain injury Code(s): S06.9X9A - Unspecified intracranial injury with loss of consciousness of unspecified duration, initial encounter Status: Acute (4) C. difficile diarrhea Code(s): A04.72 - Enterocolitis due to Clostridium difficile, not specified as recurrent Status: Acute - Plan 1. Soft diet. 2. Chest Xrsaturday 3. Continue Dificid 4. Walk with help.
[2017-12-21] MEDS: Artificial Tears Opth Drops 15 ML Bottle EACH EYE SCH ×3 (06:18→21:46)
[2017-12-21] MEDS: QUEtiapine 25 MG Tablet NG/OG SCH ×2 (08:19→21:43)
[2017-12-21] MEDS: KCL 20 mEq/D5W/NaCl 0.9% Inj 1,000 ML IV.CONT SCH ×2 (08:19→18:20)
[2017-12-21] MEDS: levETIRAcetam 500 MG Tablet NG/OG SCH ×2 (08:19→21:43)
--- NOTE | 2017-12-21 11:20 | P.PNIM ---
Subjective Interval history: in no acute distress. no fever. looks comfortable. Physical Exam Vital signs: Vital Signs 12/20/17 12:00 12/20/17 16:00 12/20/17 20:00 Temperature 98.2 F 97.9 F 98.3 F Pulse Rate 96 H 99 H 97 H Respiratory Rate 17 17 16 Blood Pressure 120/75 110/65 114/70 Pulse Oximetry 95 94 L 96 12/21/17 00:00 12/21/17 04:00 Temperature 98.2 F 98.1 F Pulse Rate 79 70 Respiratory Rate 14 16 Blood Pressure 125/62 120/60 Pulse Oximetry 95 95 Intake & Output 12/20/17 12/21/17 12/21/17 18:59 06:59 18:59 Intake Total 3200 / 3200 1300 / 1300 1000 / 1000 Output Total 0 / 0 Balance 3200 / 3200 1300 / 1300 1000 / 1000 Weight 56.9 kg Intake: IV 1999 / 1999 0 / 0 1000 / 1000 D5W/NS + KCL 20 mEq Inj 1,000 1999 / 1999 0 / 0 1000 / 1000 ML @ 100 mls/hr IV.CONT .Q10H [facility] Rx#:[id number] Oral 120 / 120 Tube Feeding 840 / 840 800 / 800 Tube Irrigant 200 / 200 Water Bolus Amount 240 / 240 300 / 300 Output: Urine 0 / 0 Other: # Voids 2 # Incontinent Voids 3 2 # Urine Diapers 2 2 Date of Last Bowel Movement 12/20/17 12/20/17 # Bowel Movements 2 2 # Incontinent Bowel Movements 2 2 - Routine Respiratory Exam Present: CTA bilaterally - Routine Cardiovascular Exam Present: RRR - Routine Abdominal Exam Present: soft Results - Labs CBC & Chem 7: 12/12/17 07:17 12/19/17 09:09 Assessment and Plan - Assessment (1) Traumatic brain injury Code(s): S06.9X9A - Unspecified intracranial injury with loss of consciousness of unspecified duration, initial encounter Status: Acute (2) C. difficile diarrhea Code(s): A04.72 - Enterocolitis due to Clostridium difficile, not specified as recurrent Status: Acute - Plan Sepsis -due to Recurrent c diff colitis- - CT of abdomen/pelvis- shows diffuse colitis- 12/07 -s/p Oral vancomycin per ID x 10 days - completed 11/21 and prior to this had treatment tapering - - hyper virulent strain per ID notes - -ID f/u appreciated; completed the course of Dificid. after two weeks of treatment with Vanco; will continue with vanco taper ( will start on 12/24/17); vanco 125 mg po QID x 7days,then vanco 125 mg po BID x 7days,then vanco 125 mg po daily x 7days,then vanco 125 mg po Q48 hrs x 7days,then vanco 125 mg po Q72 hrs x 5 doses Right subdural hematoma 18 mm (w/ 15 mm shift)-stable TBI with neurocognitive defects - S/P bone flap on 11/11/17 - Placement for rehab needed - PT/OT - Keppra -Continue Seroquel Seborrheic dermatitis - Improved/Resolved Respiratory failure - s/p trach; almost closed. Rib fractures - good sats at room air -CXR on Saturday -pulmonary following. Inadequate po - on PEG tube feedings - speech ff - PEG care routine - dietitian ff along Hypertension- BP controlled; continue to hold Atenolol. Hypothyroidism; continue Synthroid. DVT prophylaxis Lovenox, SCDs
[2017-12-22] MEDS: KCL 20 mEq/D5W/NaCl 0.9% Inj 1,000 ML IV.CONT SCH ×2 (05:42→07:35)
[2017-12-22] MEDS: Artificial Tears Opth Drops 15 ML Bottle EACH EYE SCH ×3 (05:45→21:18)
[2017-12-22] MEDS: levETIRAcetam 500 MG Tablet NG/OG SCH ×2 (08:42→21:17)
[2017-12-22] MEDS: QUEtiapine 25 MG Tablet NG/OG SCH ×2 (08:42→21:17)
--- NOTE | 2017-12-22 12:18 | P.PNIM ---
Subjective Interval history: in no distress. clinically no change. d/w the RN. Physical Exam Vital signs: Vital Signs 12/21/17 16:00 12/21/17 20:00 12/22/17 00:00 Temperature 98.2 F 98.0 F 98.2 F Pulse Rate 94 H 69 84 Respiratory Rate 18 14 18 Blood Pressure 116/76 110/65 104/65 Pulse Oximetry 95 95 97 12/22/17 04:00 12/22/17 08:00 Temperature 97.9 F 97.2 F L Pulse Rate 102 H 80 Respiratory Rate 20 18 Blood Pressure 135/85 121/91 H Pulse Oximetry 96 95 Intake & Output 12/21/17 12/22/17 12/22/17 18:59 06:59 18:59 Intake Total 2240 / 2240 2340 / 2340 Output Total 250 / 250 Balance 2240 / 2240 2340 / 2340 -250 / -250 Weight 57.3 kg Intake: IV 1999 / 1999 1000 / 1000 D5W/NS + KCL 20 mEq Inj 1,000 1999 / 2000 1000 / 1000 ML @ 100 mls/hr IV.CONT .Q10H [facility] Rx#:[id number] Oral 240 / 240 Tube Feeding 840 / 840 Tube Irrigant 100 / 100 Water Bolus Amount 400 / 400 Output: Urine 250 / 250 Other: # Voids 3 3 # Bowel Movements 3 - Constitutional no acute distress - Routine Respiratory Exam Present: CTA bilaterally - Routine Cardiovascular Exam Present: RRR - Routine Abdominal Exam Present: soft Results - Labs CBC & Chem 7: 12/12/17 07:17 12/19/17 09:09 Assessment and Plan - Assessment (1) Traumatic brain injury Code(s): S06.9X9A - Unspecified intracranial injury with loss of consciousness of unspecified duration, initial encounter Status: Acute (2) C. difficile diarrhea Code(s): A04.72 - Enterocolitis due to Clostridium difficile, not specified as recurrent Status: Acute - Plan Sepsis -due to Recurrent c diff colitis- - CT of abdomen/pelvis- shows diffuse colitis- 12/07 -s/p Oral vancomycin per ID x 10 days - completed 11/21 and prior to this had treatment tapering - - hyper virulent strain per ID notes - -ID f/u appreciated; completed the course of Dificid. after two weeks of treatment with Vanco; will continue with vanco taper ( will start on 12/24/17); vanco 125 mg po QID x 7days,then vanco 125 mg po BID x 7days,then vanco 125 mg po daily x 7days,then vanco 125 mg po Q48 hrs x 7days,then vanco 125 mg po Q72 hrs x 5 doses Right subdural hematoma 18 mm (w/ 15 mm shift)-stable TBI with neurocognitive defects - S/P bone flap on 11/11/17 - Placement for rehab needed - PT/OT - [facility] and [facility]. -Continue Seroquel Seborrheic dermatitis - Improved/Resolved Respiratory failure - s/p trach; almost closed. Rib fractures - good sats at room air -CXR on Saturday -pulmonary following. Inadequate po - on PEG tube feedings - speech ff - PEG care routine - dietitian ff along Hypertension- BP controlled; continue to hold Atenolol. Hypothyroidism; continue Synthroid. DVT prophylaxis Lovenox, SCDs Discharge Planning: case management working on placement.
[2017-12-23] MEDS: Artificial Tears Opth Drops 15 ML Bottle EACH EYE SCH ×3 (05:55→21:00)
--- NOTE | 2017-12-23 06:41 | XR ---
EXAM DATE: 12/23/2017 6:21 AM EDT AGE/SEX: 52 years / Male INDICATIONS: Short of breath, evaluate infiltrate CLINICAL DATA: This is the patient's subsequent encounter. Patient reports that signs and symptoms h ave been present for 1 month and indicates a pain score of Nonresponsive. MEDICAL/SURGICAL HISTORY: . traumatic brain injury, encephalopathy, C-diff Non-responsive. COMPARISON: C, CHEST 1V SINGLE AP, 12/07/2017. . FINDINGS: A single AP view of the chest demonstrates the lungs to be symmetrically aerated without evidence of mass, infiltrate or effusion. The cardiomediastinal contours are unremarkable. Osseous structures a re intact. The left hemidiaphragm remains elevated but unchanged. CONCLUSION: No acute cardiopulmonary disease. There is stable elevation of the left hemidiaphragm. Electronically signed by: Toby Freeman MD 12/23/2017 6:40 AM EDT
[2017-12-23] MEDS: levETIRAcetam 500 MG Tablet NG/OG SCH ×2 (09:25→20:57)
[2017-12-23] MEDS: QUEtiapine 25 MG Tablet NG/OG SCH ×2 (09:25→20:57)
--- NOTE | 2017-12-23 16:21 | P.PN ---
Subjective Interval history: appears to be in no distress. clinically no change. d/w the RN. Physical Exam Vital signs: Vital Signs 12/22/17 20:00 12/23/17 00:00 12/23/17 04:00 Temperature 97.7 F 98.1 F 97.9 F Pulse Rate 91 H 95 H 105 H Respiratory Rate 17 20 18 Blood Pressure 128/61 115/67 116/78 Pulse Oximetry 95 95 97 12/23/17 08:00 12/23/17 12:00 Temperature 97.7 F 97.5 F L Pulse Rate 92 H 98 H Respiratory Rate 18 18 Blood Pressure 128/73 123/68 Pulse Oximetry 95 96 Intake & Output 12/22/17 12/23/17 12/23/17 18:59 06:59 18:59 Intake Total 990 / 990 2500 / 2500 Output Total 500 / 500 250 / 250 Balance 490 / 490 2250 / 2250 Weight 58.4 kg Intake: IV 750 / 750 D5W/NS + KCL 20 mEq Inj 1,000 750 / 750 ML @ 100 mls/hr IV.CONT .Q10H [facility] Rx#:[id number] Oral 240 / 240 Tube Feeding 2100 / 2100 Tube Irrigant 400 / 400 Output: Urine 500 / 500 250 / 250 Other: # Voids 3 3 # Incontinent Voids 3 Narrative: GENERAL: This is a 52 year old male, well-developed patient, in no apparent distress. CARDIOVASCULAR: Regular rate and rhythm RESPIRATORY: Clear to auscultation. Breath sounds equal bilaterally. GASTROINTESTINAL: Abdomen soft, non-tender, nondistended. Normal active bowel sounds MUSCULOSKELETAL: Extremities without clubbing, cyanosis, or edema. Results - Labs CBC & Chem 7: 12/12/17 07:17 12/19/17 09:09 - Imaging Impressions Chest X-Ray 12/23/17 00:00 CONCLUSION: No acute cardiopulmonary disease. There is stable elevation of the left hemidiaphragm. Assessment and Plan - Plan Sepsis -due to Recurrent c diff colitis- - CT of abdomen/pelvis- shows diffuse colitis- 12/07 -s/p Oral vancomycin per ID x 10 days - completed 11/21 and prior to this had treatment tapering - - hyper virulent strain per ID notes - -ID f/u appreciated; completed the course of Dificid. after two weeks of treatment with Vanco; will continue with vanco taper ( will start on 12/24/17); vanco 125 mg po QID x 7days,then vanco 125 mg po BID x 7days,then vanco 125 mg po daily x 7days,then vanco 125 mg po Q48 hrs x 7days,then vanco 125 mg po Q72 hrs x 5 doses Right subdural hematoma 18 mm (w/ 15 mm shift)-stable TBI with neurocognitive defects - S/P bone flap on 11/11/17 - Placement for rehab needed - PT/OT - Ad[facility]. -Continue Seroquel Seborrheic dermatitis - Improved/Resolved Respiratory failure - s/p trach; almost closed. Rib fractures - good sats at room air -CXR on Saturday -pulmonary following. Inadequate po - on PEG tube feedings - speech ff - PEG care routine - dietitian ff along Hypertension- BP controlled; continue to hold Atenolol. Hypothyroidism; continue Synthroid. DVT prophylaxis Lovenox, SCDs Discharge Planning: case management working on placement. Discussed with supervising physician Dr. Vallejo
--- NOTE | 2017-12-23 18:42 | P.PN ---
Subjective Interval history: No SOB or cough. Loose stools still. Seems to take his diet well. Physical Exam Vital signs: Vital Signs 12/22/17 20:00 12/23/17 00:00 12/23/17 04:00 Temperature 97.7 F 98.1 F 97.9 F Pulse Rate 91 H 95 H 105 H Respiratory Rate 17 20 18 Blood Pressure 128/61 115/67 116/78 Pulse Oximetry 95 95 97 12/23/17 08:00 12/23/17 12:00 12/23/17 16:00 Temperature 97.7 F 97.5 F L 97.2 F L Pulse Rate 92 H 98 H 107 H Respiratory Rate 18 18 16 Blood Pressure 128/73 123/68 124/73 Pulse Oximetry 95 96 96 Intake & Output 12/22/17 12/23/17 12/23/17 18:59 06:59 18:59 Intake Total 990 / 990 2500 / 2500 Output Total 500 / 500 250 / 250 Balance 490 / 490 2250 / 2250 Weight 58.4 kg Intake: IV 750 / 750 D5W/NS + KCL 20 mEq Inj 1,000 750 / 750 ML @ 100 mls/hr IV.CONT .Q10H [facility] Rx#:[id number] Oral 240 / 240 Tube Feeding 2100 / 2100 Tube Irrigant 400 / 400 Output: Urine 500 / 500 250 / 250 Other: # Voids 3 3 # Incontinent Voids 3 Narrative: GENERAL: This mid aged male, well-developed patient, in no apparent distress. CARDIOVASCULAR: Regular rate and rhythm RESPIRATORY: Clear to auscultation. Breath sounds equal bilaterally. GASTROINTESTINAL: Abdomen soft, non-tender, nondistended. Normal active bowel sounds MUSCULOSKELETAL: Extremities without clubbing, cyanosis, or edema. Results - Labs CBC & Chem 7: 12/12/17 07:17 12/19/17 09:09 - Imaging Impressions Chest X-Ray 12/23/17 00:00 CONCLUSION: No acute cardiopulmonary disease. There is stable elevation of the left hemidiaphragm. Assessment and Plan - Assessment (1) Aspiration into airway Code(s): T17.908A - Unspecified foreign body in respiratory tract, part unspecified causing other injury, initial encounter Status: Acute (2) Encephalopathy chronic Code(s): G93.49 - Other encephalopathy Status: Acute (3) Traumatic brain injury Code(s): S06.9X9A - Unspecified intracranial injury with loss of consciousness of unspecified duration, initial encounter Status: Acute (4) C. difficile diarrhea Code(s): A04.72 - Enterocolitis due to Clostridium difficile, not specified as recurrent Status: Acute - Plan 1. Soft diet. 2. Vanco per ID for C Difficile 3. Labs this week 4. Walk with help. 5. Ventolin HFA , 2 puffs qid prn
[2017-12-24] MEDS: Artificial Tears Opth Drops 15 ML Bottle EACH EYE SCH ×3 (06:23→21:22)
[2017-12-24] MEDS: levETIRAcetam 500 MG Tablet NG/OG SCH ×2 (08:05→21:21)
[2017-12-24] MEDS: QUEtiapine 25 MG Tablet NG/OG SCH ×2 (08:06→21:22)
--- NOTE | 2017-12-24 11:02 | XR ---
EXAM DATE: 12/24/2017 10:42 AM EDT AGE/SEX: 52 years / Male INDICATIONS: Cough CLINICAL DATA: This is the patient's initial encounter. Patient reports that signs and symptoms have been present for 2 days and indicates a pain score of Nonresponsive. MEDICAL/SURGICAL HISTORY: . traumatic brain injury, encephalopathy, c-diff Non-responsive. COMPARISON: C, CHEST 1V SINGLE AP, 12/23/2017. . FINDINGS: The lung volumes are diminished with mild basilar atelectatic changes. There is no consolidation or e ffusion. Osseous structures are intact. CONCLUSION: Shallow lung volumes. Electronically signed by: Vu Conley MD 12/24/2017 11:00 AM EDT
--- NOTE | 2017-12-24 11:41 | P.PN ---
Subjective Interval history: T Max 101.0 appears to be in no distress. offers no specific complaints Physical Exam Vital signs: Vital Signs 12/23/17 12:00 12/23/17 16:00 12/23/17 20:00 Temperature 97.5 F L 97.2 F L 99.9 F H Pulse Rate 98 H 107 H 102 H Respiratory Rate 18 16 17 Blood Pressure 123/68 124/73 107/64 Pulse Oximetry 96 96 94 L 12/24/17 00:00 12/24/17 04:00 12/24/17 08:00 Temperature 101.0 F H 98 F 98.3 F Pulse Rate 108 H 87 89 Respiratory Rate 16 15 16 Blood Pressure 142/74 H 108/66 102/66 Pulse Oximetry 93 L 94 L 93 L Intake & Output 12/23/17 12/24/17 12/24/17 18:59 06:59 18:59 Intake Total 480 / 480 240 / 240 Output Total 300 / 300 750 / 750 Balance 180 / 180 -510 / -510 Weight 57.7 kg Intake: Oral 480 / 480 240 / 240 Output: Urine 300 / 300 750 / 750 Other: # Bowel Movements 0 # Incontinent Bowel Movements 1 Narrative: GENERAL: This is a 52 year old male, well-developed patient, in no apparent distress. CARDIOVASCULAR: Regular rate and rhythm RESPIRATORY: Clear to auscultation. Breath sounds equal bilaterally. GASTROINTESTINAL: Abdomen soft, non-tender, nondistended. Normal active bowel sounds MUSCULOSKELETAL: Extremities without clubbing, cyanosis, or edema. Results - Labs CBC & Chem 7: 12/12/17 07:17 12/19/17 09:09 - Imaging Impressions Chest X-Ray 12/24/17 08:55 CONCLUSION: Shallow lung volumes. Assessment and Plan - Plan Sepsis -due to Recurrent c diff colitis- - CT of abdomen/pelvis- shows diffuse colitis- 12/07 -s/p Oral vancomycin per ID x 10 days - completed 11/21 and prior to this had treatment tapering - - hyper virulent strain per ID notes - -ID f/u appreciated; completed the course of Dificid. after two weeks of treatment with Vanco; will continue with vanco taper ( will start on 12/24/17); vanco 125 mg po QID x 7days,then vanco 125 mg po BID x 7days,then vanco 125 mg po daily x 7days,then vanco 125 mg po Q48 hrs x 7days,then vanco 125 mg po Q72 hrs x 5 doses - T Max 101.0, discussed this with ID Dr. Arreola - CXR - UA C&S - CBC - sputum culture - reconsult to ID Dr. Arreola Right subdural hematoma 18 mm (w/ 15 mm shift)-stable TBI with neurocognitive defects - S/P bone flap on 11/11/17 - Placement for rehab needed - PT/OT - [facility] and [facility]. -Continue Seroquel Seborrheic dermatitis - Improved/Resolved Respiratory failure - s/p trach; almost closed. Rib fractures - good sats at room air -CXR on Saturday -pulmonary following. Inadequate po - on PEG tube feedings - speech ff - PEG care routine - dietitian ff along Hypertension- BP controlled; continue to hold Atenolol. Hypothyroidism; continue Synthroid. DVT prophylaxis Lovenox, SCDs Discharge Planning: case management working on placement. Discussed with supervising physician Dr. Rooney
[2017-12-24 14:17] LABS: Bilirubin,Urine Negative (Negative); Clarity,Urine Hazy (Clear); Color,Urine Yellow (Yellw/Straw); Glucose,Urine (UA) Negative (Negative); Leukocyte Esterase,Urine Negative (Negative); Mucus,Urine Few /lpf (Occasional); Nitrite,Urine Negative (Negative)
[2017-12-24 17:54] LABS: Baso % (Auto) 0.7 % (0.0-2.0); Eos # (Auto) 0.3 th/mm3 (0.0-0.4); Eos % (Auto) 5.8 % (0.0-4.0); Hematocrit 36.3 % (39.0-51.0); Hemoglobin 12.5 gm/dL (13.0-17.0); Lymph # (Auto) 1.7 th/mm3 (1.0-4.8); Lymph % (Auto) 34.5 % (9.0-44.0); Mean Corpuscular HGB Conc 34.5 % (32.0-36.0); Mean Corpuscular Hemoglobin 29.7 pg (27.0-34.0); Mean Corpuscular Volume 86.3 fL (80.0-100.0); Mean Platelet Volume 10.6 fL (7.0-11.0); Mono # (Auto) 0.5 th/mm3 (0.0-0.9); Mono % (Auto) 10.1 % (0.0-8.0); Neut # (Auto) 2.5 th/mm3 (1.8-7.7); Neut % (Auto) 48.9 % (16.0-70.0); Platelet Count 222 th/mm3 (150-450); White Blood Count 5.1 th/mm3 (4.0-11.0)
--- NOTE | 2017-12-24 17:56 | P.PNID ---
Subjective Remarks: reconsulted 2/2 new fever episode yday up to 101 Pt has no diarrhea denies abd pain Antibiotics: po vancomycin Lines: Peripheral IV catheter appears intact. Allergies/Adverse Reactions: Allergies No Known Allergies Allergy (Verified 11/23/17 11:49) Objective Vital Signs 12/23/17 20:00 12/24/17 00:00 12/24/17 04:00 Temperature 99.9 F H 101.0 F H 98 F Pulse Rate 102 H 108 H 87 Respiratory Rate 17 16 15 Blood Pressure 107/64 142/74 H 108/66 Pulse Oximetry 94 L 93 L 94 L 12/24/17 08:00 12/24/17 12:00 Temperature 98.3 F 97.9 F Pulse Rate 89 94 H Respiratory Rate 16 16 Blood Pressure 102/66 102/63 Pulse Oximetry 93 L 94 L Intake & Output 12/23/17 12/24/17 12/24/17 18:59 06:59 18:59 Intake Total 480 / 480 240 / 240 Output Total 300 / 300 750 / 750 Balance 180 / 180 -510 / -510 Weight 57.7 kg Intake: Oral 480 / 480 240 / 240 Output: Urine 300 / 300 750 / 750 Other: # Bowel Movements 0 # Incontinent Bowel Movements 1 12/24/17 11:45 Blood - Peripheral Aerobic Blood Culture - Pending 12/24/17 11:45 Blood - Peripheral Anaerobic Blood Culture - Pending 12/24/17 12:00 Blood - Peripheral Aerobic Blood Culture - Pending 12/24/17 12:00 Blood - Peripheral Anaerobic Blood Culture - Pending Imaging: ITS Impressions Abdomen/Pelvis CT 12/07/17 00:00 CONCLUSION: 1. Diffuse colitis. 2. GJ tube in place. 3. Mild left pleural effusion, there are mild bibasilar areas of consolidation or atelectasis. Abdomen X-Ray 12/07/17 11:06 CONCLUSION: Given the limitations of the plain film exam. Consider CT for further evaluation of the abdomen and pelvis. Chest X-Ray 12/24/17 08:55 CONCLUSION: Shallow lung volumes. Physical Exam: GENERAL: Alert and oriented, no acute distress. HEENT: Pupils reactive to light. Extraocular movements intact. No icterus. NECK: Supple without adenopathy. No swelling. LUNGS: Clear to auscultation with slight rhonchi at the bases. HEART: Regular S1-S2 without murmurs rubs or gallops. ABDOMEN: Positive bowel sounds, soft, mildly disteded and not tender to palpation PEG in place, site clean EXTREMITIES: No clubbing cyanosis or edema. SKIN: No rash. NEUROLOGIC: awake alert able to talk ambulates with walker practically w/o assistance PSYCH: Calm and cooperative. Peripheral IV line intact without evidence of infection. Assessment and Plan - Plan Impression: Diffiuse c difficile colitis, clinially improved . 1 BM /day Hypervirulebnt strain New fever - no leukocytosis. neg CXR - neg UA BC P Avoid abx unless clear infection 2/2 severe C.diff pt just had Low grade fever, no leukocytosis, no obvous complaints. Fu temps will start abx only if sustained fever and/or other clear signs of infx cont oral vancomycin taper : vanco 125 mg po QID x 7days,then vanco 125 mg po BID x 7days,then vanco 125 mg po daily x 7days,then vanco 125 mg po Q48 hrs x 7days,then vanco 125 mg po Q72 hrs x 5 doses monster [facility]
[2017-12-25] MEDS: Artificial Tears Opth Drops 15 ML Bottle EACH EYE SCH ×3 (05:21→21:14)
[2017-12-25 09:45] LABS: Baso % (Auto) 0.6 % (0.0-2.0); Eos # (Auto) 0.2 th/mm3 (0.0-0.4); Eos % (Auto) 5.2 % (0.0-4.0); Hematocrit 37.9 % (39.0-51.0); Lymph # (Auto) 1.7 th/mm3 (1.0-4.8); Lymph % (Auto) 37.3 % (9.0-44.0); Mean Corpuscular HGB Conc 34.2 % (32.0-36.0); Mean Corpuscular Hemoglobin 29.4 pg (27.0-34.0); Mean Corpuscular Volume 85.9 fL (80.0-100.0); Mean Platelet Volume 9.7 fL (7.0-11.0); Mono # (Auto) 0.5 th/mm3 (0.0-0.9); Mono % (Auto) 11.4 % (0.0-8.0); Neut # (Auto) 2.1 th/mm3 (1.8-7.7); Neut % (Auto) 45.5 % (16.0-70.0); Platelet Count 202 th/mm3 (150-450); Red Blood Count 4.42 mil/mm3 (4.50-5.90); White Blood Count 4.5 th/mm3 (4.0-11.0)
[2017-12-25 10:06] LABS: Anion Gap 8 meq/L (5-15); Blood Urea Nitrogen 12 mg/dL (7-18); Calcium 9.1 mg/dL (8.5-10.1); Carbon Dioxide 29.3 meq/L (21.0-32.0); Chloride 100 meq/L (98-107); Glomerular Filtration Rate Greater Than 89 mL/min (>89); Glucose,Random 99 mg/dL (74-106); Potassium 3.7 meq/L (3.5-5.1); Sodium 137 meq/L (136-145)
[2017-12-25] MEDS: QUEtiapine 25 MG Tablet NG/OG SCH ×2 (10:09→21:13)
[2017-12-25] MEDS: levETIRAcetam 500 MG Tablet NG/OG SCH ×2 (10:09→21:12)
--- NOTE | 2017-12-25 10:53 | P.PN ---
Subjective Interval history: Follow up for sepsis, Cdiff, fever. The patient has no medical complaints. Seen with RN at bedside. No reported diarrhea today, although 1 documented BM yesterday. No further fevers since yesterday. Tolerating oral intake. Physical Exam Vital signs: Vital Signs 12/24/17 12:00 12/24/17 16:00 12/24/17 20:00 Temperature 97.9 F 98.0 F 98.1 F Pulse Rate 94 H 108 H 96 H Respiratory Rate 16 16 18 Blood Pressure 102/63 105/69 113/66 Pulse Oximetry 94 L 93 L 92 L 12/25/17 00:00 12/25/17 04:00 12/25/17 08:00 Temperature 98.3 F 98.1 F 96.8 F L Pulse Rate 102 H 95 H 88 Respiratory Rate 18 18 20 Blood Pressure 101/60 116/71 114/72 Pulse Oximetry 95 93 L 95 Intake & Output 12/24/17 12/25/17 12/25/17 18:59 06:59 18:59 Intake Total 540 / 540 1527 / 1527 Output Total 600 / 600 Balance 540 / 540 927 / 927 Weight 57.9 kg Intake: Oral 540 / 540 0 / 0 Tube Feeding 827 / 827 Tube Irrigant 200 / 200 Water Bolus Amount 500 / 500 Output: Urine 600 / 600 Other: # Voids 150 Date of Last Bowel Movement 12/20/17 # Bowel Movements 0 0 Narrative: GENERAL: Well-nourished, well-developed middle aged male patient in [facility]. SKIN: Warm and dry. No rash. HEENT: Normocephalic. Atraumatic. CARDIOVASCULAR: Regular rate and rhythm. No murmur appreciated. RESPIRATORY: No accessory muscle use. Clear to auscultation. Breath sounds equal bilaterally. GASTROINTESTINAL: Abdomen soft, non-tender, nondistended. Normoactive bowel sounds x4. MUSCULOSKELETAL: No obvious deformities. Extremities without clubbing, cyanosis , or edema. NEUROLOGICAL: Awake and alert. No obvious cranial nerve deficits. Moving all extremities spontaneously. Normal speech. Results - Labs CBC & Chem 7: 12/25/17 09:15 12/25/17 09:15 Laboratory Results - last 24 hr 12/24/17 12/24/17 12/25/17 13:55 16:48 09:15 WBC 5.1 4.5 RBC 4.20 L 4.42 L Hgb 12.5 L 13.0 Hct 36.3 L 37.9 L MCV 86.3 85.9 MCH 29.7 29.4 MCHC 34.5 34.2 RDW 16.0 16.0 Plt Count 222 202 MPV 10.6 9.7 Neut % (Auto) 48.9 45.5 Lymph % (Auto) 34.5 37.3 [place] % (Auto) 10.1 H 11.4 H Eos % (Auto) 5.8 H 5.2 H Baso % (Auto) 0.7 0.6 Neut # (Auto) 2.5 2.1 Lymph # (Auto) 1.7 1.7 [place] # (Auto) 0.5 0.5 Eos # (Auto) 0.3 0.2 Baso # (Auto) 0.0 0.0 WBC Differential . . Differential Comment Auto diff final Auto diff final Sodium Potassium Chloride Carbon Dioxide Anion Gap BUN Creatinine Estimated GFR Random Glucose Calcium Urine Color Yellow Urine Clarity Hazy H Urine pH 6.0 Ur Specific [place] 1.020 Urine Protein Negative Urine Glucose (UA) Negative Urine Ketones Negative Urine Occult Blood Negative Urine Nitrate Negative Urine Bilirubin Negative Urine Urobilinogen Less than 2 Ur Leukocyte Esterase Negative Urine WBC 1 Urine Mucus Few H Micro UA Comment Cath-culture not ind Urine Culture Comments Cath-cult not ind 12/25/17 09:15 WBC RBC Hgb Hct MCV MCH MCHC RDW Plt Count MPV Neut % (Auto) Lymph % (Auto) [place] % (Auto) Eos % (Auto) Baso % (Auto) Neut # (Auto) Lymph # (Auto) [place] # (Auto) Eos # (Auto) Baso # (Auto) WBC Differential Differential Comment Sodium 137 Potassium 3.7 Chloride 100 Carbon Dioxide 29.3 Anion Gap 8 BUN 12 Creatinine 0.52 L Estimated GFR Greater than 89 Random Glucose 99 Calcium 9.1 Urine Color Urine Clarity Urine pH Ur Specific [place] Urine Protein Urine Glucose (UA) Urine Ketones Urine Occult Blood Urine Nitrate Urine Bilirubin Urine Urobilinogen Ur Leukocyte Esterase Urine WBC Urine Mucus Micro UA Comment Urine Culture Comments - Imaging Impressions Chest X-Ray 12/24/17 08:55 CONCLUSION: Shallow lung volumes. Assessment and Plan - Assessment (1) Traumatic brain injury Code(s): S06.9X9A - Unspecified intracranial injury with loss of consciousness of unspecified duration, initial encounter Status: Acute (2) C. difficile diarrhea Code(s): A04.72 - Enterocolitis due to Clostridium difficile, not specified as recurrent Status: Acute - Plan Sepsis -due to Recurrent c diff colitis- - CT of abdomen/pelvis- shows diffuse colitis- 12/07 -s/p Oral vancomycin per ID x 10 days - completed 11/21 and prior to this had treatment tapering - - hyper virulent strain per ID notes - -ID f/u appreciated; completed the course of Dificid. -after two weeks of treatment with Vanco; will continue with vanco taper ( started on on 12/24/17); vanco 125 mg po QID x 7days,then vanco 125 mg po BID x 7days,then vanco 125 mg po daily x 7days,then vanco 125 mg po Q48 hrs x 7days,then vanco 125 mg po Q72 hrs x 5 doses Fever: T Max 101.0 on 12/24. -Infectious disease Dr. Arreola reconsulted - CXR and UA unremarkable - Repeat CBC with no leukocytosis - Blood cultures collected and pending - no further fevers Right subdural hematoma 18 mm (w/ 15 mm shift)-stable TBI with neurocognitive defects - S/P bone flap on 11/11/17 - Placement for rehab needed - PT/OT - Daniel and Dayami. - Continue Seroquel Respiratory failure - s/p trach; almost closed. Rib fractures -O2 sat stable on room air -repeat CXR 12/24 unremarkable -pulmonary following, appreciate recommendations Inadequate oral intake - on PEG tube feedings - speech therapy following, appreciate assistance - Continue peg - dietitian following along - on mechanical soft diet with chopped meat Hypertension- BP controlled; continue to hold Atenolol. Hypothyroidism; continue Synthroid. DVT prophylaxis: Lovenox, SCDs Discharge Planning: Needs placement. Case management consulted.
--- NOTE | 2017-12-25 18:41 | P.PN ---
Subjective Interval history: Alert and is breathing well. No loose stools. No fever. Physical Exam Vital signs: Vital Signs 12/24/17 20:00 12/25/17 00:00 12/25/17 04:00 Temperature 98.1 F 98.3 F 98.1 F Pulse Rate 96 H 102 H 95 H Respiratory Rate 18 18 18 Blood Pressure 113/66 101/60 116/71 Pulse Oximetry 92 L 95 93 L 12/25/17 08:00 12/25/17 12:00 12/25/17 16:00 Temperature 96.8 F L 97.7 F 97.9 F Pulse Rate 88 82 88 Respiratory Rate 20 17 17 Blood Pressure 114/72 117/80 118/76 Pulse Oximetry 95 97 96 Intake & Output 12/24/17 12/25/17 12/25/17 18:59 06:59 18:59 Intake Total 540 / 540 1527 / 1527 360 / 360 Output Total 600 / 600 400 / 400 Balance 540 / 540 927 / 927 -40 / -40 Weight 57.9 kg Intake: Oral 540 / 540 0 / 0 360 / 360 Tube Feeding 827 / 827 Tube Irrigant 200 / 200 Water Bolus Amount 500 / 500 Output: Urine 600 / 600 400 / 400 Other: # Voids 150 Date of Last Bowel Movement 12/20/17 # Bowel Movements 0 0 0 Narrative: GENERAL: Well-nourished, well-developed middle aged male patient in [facility]. SKIN: Warm and dry. No rash. HEENT: Normocephalic. Atraumatic. Throat clear. CARDIOVASCULAR: Regular rate and rhythm. No murmur appreciated. RESPIRATORY: No accessory muscle use. Clear to auscultation. Breath sounds equal bilaterally. GASTROINTESTINAL: Abdomen soft, non-tender, nondistended. Normoactive bowel sounds x4. MUSCULOSKELETAL: No obvious deformities. Extremities without clubbing, cyanosis , or edema. NEUROLOGICAL: Awake and alert. No obvious cranial nerve deficits. Moving all extremities spontaneously. Results - Labs CBC & Chem 7: 12/25/17 09:15 12/25/17 09:15 Laboratory Results - last 24 hr 12/25/17 12/25/17 09:15 09:15 WBC 4.5 RBC 4.42 L Hgb 13.0 Hct 37.9 L MCV 85.9 MCH 29.4 MCHC 34.2 RDW 16.0 Plt Count 202 MPV 9.7 Neut % (Auto) 45.5 Lymph % (Auto) 37.3 [place] % (Auto) 11.4 H Eos % (Auto) 5.2 H Baso % (Auto) 0.6 Neut # (Auto) 2.1 Lymph # (Auto) 1.7 [place] # (Auto) 0.5 Eos # (Auto) 0.2 Baso # (Auto) 0.0 WBC Differential . Differential Comment Auto diff final Sodium 137 Potassium 3.7 Chloride 100 Carbon Dioxide 29.3 Anion Gap 8 BUN 12 Creatinine 0.52 L Estimated GFR Greater than 89 Random Glucose 99 Calcium 9.1 Microbiology 12/24/17 11:45 Blood - Peripheral Aerobic Blood Culture - Preliminary No growth in 1 day 12/24/17 11:45 Blood - Peripheral Anaerobic Blood Culture - Preliminary No growth in 1 day 12/24/17 12:00 Blood - Peripheral Aerobic Blood Culture - Preliminary No growth in 1 day 12/24/17 12:00 Blood - Peripheral Anaerobic Blood Culture - Preliminary No growth in 1 day Assessment and Plan - Assessment (1) Aspiration into airway Code(s): T17.908A - Unspecified foreign body in respiratory tract, part unspecified causing other injury, initial encounter Status: Acute (2) Encephalopathy chronic Code(s): G93.49 - Other encephalopathy Status: Acute (3) Traumatic brain injury Code(s): S06.9X9A - Unspecified intracranial injury with loss of consciousness of unspecified duration, initial encounter Status: Acute (4) C. difficile diarrhea Code(s): A04.72 - Enterocolitis due to Clostridium difficile, not specified as recurrent Status: Acute - Plan 1. CBC,BMP 2. IS bedside Qid 3. Tube feeds at 30 CC 4. Walk with help. 5. Ventolin HFA , 2 puffs qid prn
[2017-12-26] MEDS: levETIRAcetam 500 MG Tablet NG/OG SCH ×2 (09:19→22:30)
[2017-12-26] MEDS: Artificial Tears Opth Drops 15 ML Bottle EACH EYE SCH ×3 (09:20→22:31)
[2017-12-26] MEDS: QUEtiapine 25 MG Tablet NG/OG SCH ×2 (09:20→22:30)
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
[2017-12-27] MEDS: Artificial Tears Opth Drops 15 ML Bottle EACH EYE SCH ×3 (06:33→21:35)
[2017-12-27] MEDS: QUEtiapine 25 MG Tablet NG/OG SCH ×2 (09:17→21:32)
[2017-12-27] MEDS: levETIRAcetam 500 MG Tablet NG/OG SCH ×2 (09:17→21:31)
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
[2017-12-28] MEDS: Artificial Tears Opth Drops 15 ML Bottle EACH EYE SCH ×3 (05:09→21:13)
[2017-12-28 09:31] LABS: Baso % (Auto) 0.5 % (0.0-2.0); Eos # (Auto) 0.1 th/mm3 (0.0-0.4); Eos % (Auto) 1.6 % (0.0-4.0); Hematocrit 38.2 % (39.0-51.0); Lymph # (Auto) 1.2 th/mm3 (1.0-4.8); Mean Corpuscular HGB Conc 34.1 % (32.0-36.0); Mean Corpuscular Hemoglobin 29.8 pg (27.0-34.0); Mean Corpuscular Volume 87.4 fL (80.0-100.0); Mean Platelet Volume 10.9 fL (7.0-11.0); Mono # (Auto) 0.7 th/mm3 (0.0-0.9); Neut # (Auto) 5.6 th/mm3 (1.8-7.7); Neut % (Auto) 72.9 % (16.0-70.0); Platelet Count 131 th/mm3 (150-450); Red Blood Count 4.37 mil/mm3 (4.50-5.90); Red Cell Distribution Width 15.8 % (11.6-17.2); White Blood Count 7.7 th/mm3 (4.0-11.0)
[2017-12-28 10:02] LABS: Anion Gap 11 meq/L (5-15); Blood Urea Nitrogen 8 mg/dL (7-18); Calcium 8.8 mg/dL (8.5-10.1); Chloride 98 meq/L (98-107); Glomerular Filtration Rate Greater Than 89 mL/min (>89); Glucose,Random 109 mg/dL (74-106); Potassium 3.7 meq/L (3.5-5.1); Sodium 135 meq/L (136-145)
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
[2017-12-28] MEDS: levETIRAcetam 500 MG Tablet NG/OG SCH ×2 (10:21→21:12)
[2017-12-28] MEDS: QUEtiapine 25 MG Tablet NG/OG SCH ×2 (10:21→21:12)
--- NOTE | 2017-12-28 15:38 | P.PNID ---
Subjective Remarks: intermittent low grade feversd Pt has diarrhea endorses abd pain CXR blood clx and UA negative Antibiotics: vasnco Lines: Peripheral IV catheter appears intact. Allergies/Adverse Reactions: Allergies No Known Allergies Allergy (Verified 11/23/17 11:49) Objective Vital Signs 12/27/17 17:22 12/27/17 20:00 12/28/17 00:00 Temperature 99.4 F 98.8 F 100.3 F H Pulse Rate 117 H 115 H 115 H Respiratory Rate 18 Blood Pressure 119/85 128/80 116/76 Pulse Oximetry 95 96 93 L 12/28/17 04:00 12/28/17 08:00 12/28/17 12:00 Temperature 98.7 F 98.0 F 97.8 F Pulse Rate 119 H 60 100 H Respiratory Rate 18 Blood Pressure 113/68 117/73 116/73 Pulse Oximetry 94 L 93 L 95 Intake & Output 12/27/17 12/28/17 12/28/17 18:59 06:59 18:59 Intake Total 100 / 100 Output Total 450 / 450 750 / 750 Balance -450 / -450 -650 / -650 Weight 57.9 kg Intake: Oral 100 / 100 Output: Urine 450 / 450 750 / 750 Other: # Voids 1 Date of Last Bowel Movement 12/28/17 12/28/17 # Bowel Movements 2 1 12/24/17 11:45 Blood - Peripheral Aerobic Blood Culture - Preliminary No growth in 4 days 12/24/17 11:45 Blood - Peripheral Anaerobic Blood Culture - Preliminary No growth in 4 days 12/24/17 12:00 Blood - Peripheral Aerobic Blood Culture - Preliminary No growth in 4 days 12/24/17 12:00 Blood - Peripheral Anaerobic Blood Culture - Preliminary No growth in 4 days Lab - Hematology Results 12/28/17 08:05 WBC 7.7 RBC 4.37 L Hgb 13.0 Hct 38.2 L MCV 87.4 MCH 29.8 MCHC 34.1 RDW 15.8 Plt Count 131 L D MPV 10.9 Neut % (Auto) 72.9 H Lymph % (Auto) 16.0 [place] % (Auto) 9.0 H Eos % (Auto) 1.6 Baso % (Auto) 0.5 Neut # (Auto) 5.6 Lymph # (Auto) 1.2 Christian # (Auto) 0.7 Eos # (Auto) 0.1 Baso # (Auto) 0.0 WBC Differential . Differential Comment Auto diff final Lab - Chemistry Results 12/28/17 08:05 Sodium 135 L Potassium 3.7 Chloride 98 Carbon Dioxide 26.0 Anion Gap 11 BUN 8 Creatinine 0.63 Estimated GFR Greater than 89 Random Glucose 109 H Calcium 8.8 Imaging: ITS Impressions Abdomen/Pelvis CT 12/07/17 00:00 CONCLUSION: 1. Diffuse colitis. 2. GJ tube in place. 3. Mild left pleural effusion, there are mild bibasilar areas of consolidation or atelectasis. Abdomen X-Ray 12/07/17 11:06 CONCLUSION: Given the limitations of the plain film exam. Consider CT for further evaluation of the abdomen and pelvis. Chest X-Ray 12/24/17 08:55 CONCLUSION: Shallow lung volumes. Physical Exam: GENERAL: Alert and oriented, no acute distress. HEENT: Pupils reactive to light. Extraocular movements intact. No icterus. NECK: Supple without adenopathy. No swelling. LUNGS: Clear to auscultation with slight rhonchi at the bases. HEART: Regular S1-S2 without murmurs rubs or gallops. ABDOMEN: Positive bowel sounds, soft, mildly disteded and mildly tender to palpation incomntinent of loose stools PEG in place, site clean EXTREMITIES: No clubbing cyanosis or edema. SKIN: No rash. NEUROLOGIC: awake alert able to talk ambulates with walker practically w/o assistance PSYCH: Calm and cooperative. Peripheral IV line intact without evidence of infection. Assessment and Plan - Plan Impression: Diffiuse c difficile colitis, clinially improved . 1 BM /day Hypervirulebnt strain Low graade fever - no leukocytosis. neg CXR - neg UA BC P Avoid abx unless clear infection 2/2 severe C.diff pt just had Low grade fever, no leukocytosis, no obvous complaints. Fu temps will start abx only if sustained fever and/or other clear signs of infx cont oral vancomycin taper : vanco 125 mg po QID x 7days,then vanco 125 mg po BID x 7days,then vanco 125 mg po daily x 7days,then vanco 125 mg po Q48 hrs x 7days,then vanco 125 mg po Q72 hrs x 5 doses romero C.diff consider non infectious causes: DVT or central
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
[2017-12-29] MEDS: levETIRAcetam 500 MG Tablet NG/OG SCH ×2 (10:01→21:04)
[2017-12-29] MEDS: QUEtiapine 25 MG Tablet NG/OG SCH ×2 (10:02→21:04)
[2017-12-29] MEDS: Artificial Tears Opth Drops 15 ML Bottle EACH EYE SCH ×3 (10:02→21:05)
[2017-12-30] MEDS: Artificial Tears Opth Drops 15 ML Bottle EACH EYE SCH ×3 (06:03→23:54)
[2017-12-30 06:48] LABS: Anion Gap 9 meq/L (5-15); Blood Urea Nitrogen 11 mg/dL (7-18); Calcium 9.3 mg/dL (8.5-10.1); Carbon Dioxide 30.2 meq/L (21.0-32.0); Chloride 99 meq/L (98-107); Glomerular Filtration Rate Greater Than 89 mL/min (>89); Glucose,Random 92 mg/dL (74-106); Potassium 3.9 meq/L (3.5-5.1); Sodium 138 meq/L (136-145)
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
[2017-12-30] MEDS: levETIRAcetam 500 MG Tablet NG/OG SCH ×2 (08:57→20:43)
[2017-12-30] MEDS: QUEtiapine 25 MG Tablet NG/OG SCH (08:57)
[2017-12-30] MEDS: QUEtiapine 25 MG Tablet PO SCH (20:43)
[2017-12-31] MEDS: Artificial Tears Opth Drops 15 ML Bottle EACH EYE SCH ×3 (06:23→21:06)
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
[2017-12-31] MEDS: QUEtiapine 25 MG Tablet NG/OG SCH (11:14)
[2017-12-31] MEDS: levETIRAcetam 500 MG Tablet NG/OG SCH ×2 (11:14→20:50)
[2017-12-31] MEDS: QUEtiapine 25 MG Tablet PO SCH (20:50)
[2018-01-01] MEDS: Artificial Tears Opth Drops 15 ML Bottle EACH EYE SCH ×3 (05:09→22:10)
[2018-01-01] MEDS: QUEtiapine 25 MG Tablet NG/OG SCH (08:37)
[2018-01-01] MEDS: levETIRAcetam 500 MG Tablet NG/OG SCH ×2 (08:37→20:08)
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
[2018-01-01] MEDS: QUEtiapine 25 MG Tablet PO SCH (20:08)
[2018-01-02] MEDS: Artificial Tears Opth Drops 15 ML Bottle EACH EYE SCH ×2 (05:20→13:03)
[2018-01-02] MEDS: levETIRAcetam 500 MG Tablet NG/OG SCH ×2 (09:06→20:56)
[2018-01-02] MEDS: QUEtiapine 25 MG Tablet NG/OG SCH (09:06)
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
[2018-01-02] MEDS: QUEtiapine 25 MG Tablet PO SCH (20:56)
[2018-01-03] MEDS: Artificial Tears Opth Drops 15 ML Bottle EACH EYE SCH ×3 (00:56→15:48)
[2018-01-03] MEDS: QUEtiapine 25 MG Tablet NG/OG SCH (09:44)
[2018-01-03] MEDS: levETIRAcetam 500 MG Tablet NG/OG SCH (09:44)
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
[2018-01-04] MEDS: QUEtiapine 25 MG Tablet PO SCH ×2 (00:10→21:36)
[2018-01-04] MEDS: levETIRAcetam 500 MG Tablet NG/OG SCH ×3 (00:10→21:35)
[2018-01-04] MEDS: Artificial Tears Opth Drops 15 ML Bottle EACH EYE SCH ×3 (06:33→21:35)
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
[2018-01-04] MEDS: QUEtiapine 25 MG Tablet NG/OG SCH (10:18)
[2018-01-05] MEDS: Artificial Tears Opth Drops 15 ML Bottle EACH EYE SCH (07:24)
[2018-01-05] MEDS: QUEtiapine 25 MG Tablet NG/OG SCH (08:10)
[2018-01-05] MEDS: levETIRAcetam 500 MG Tablet NG/OG SCH ×2 (08:10→21:35)
--- NOTE | 2018-01-05 11:06 | P.PNIM ---
Subjective Interval history: in no acute distress. looks comfortable. no fever. Physical Exam Vital signs: Vital Signs 01/04/18 12:00 01/04/18 16:00 01/04/18 20:00 Temperature 98.3 F 97.6 F 97.9 F Pulse Rate 75 72 76 Respiratory Rate 20 20 18 Blood Pressure 102/68 103/67 106/65 Pulse Oximetry 93 L 94 L 94 L 01/05/18 00:00 01/05/18 04:00 01/05/18 08:00 Temperature 98.1 F 98.1 F 97.5 F L Pulse Rate 78 68 64 Respiratory Rate 18 16 20 Blood Pressure 120/74 111/73 107/66 Pulse Oximetry 95 96 94 L Intake & Output 01/04/18 01/05/18 01/05/18 18:59 06:59 18:59 Intake Total 480 / 480 240 / 240 Output Total 700 / 700 500 / 500 Balance -220 / -220 -260 / -260 Weight 57.6 kg Intake: Oral 480 / 480 240 / 240 Output: Urine 700 / 700 500 / 500 Other: Date of Last Bowel Movement 01/02/18 # Bowel Movements 0 3 - Routine Respiratory Exam Present: CTA bilaterally - Routine Cardiovascular Exam Present: RRR - Routine Abdominal Exam Present: soft Results - Labs CBC & Chem 7: 12/28/17 08:05 12/30/17 05:57 Assessment and Plan - Assessment (1) Traumatic brain injury Code(s): S06.9X9A - Unspecified intracranial injury with loss of consciousness of unspecified duration, initial encounter Status: Acute (2) C. difficile diarrhea Code(s): A04.72 - Enterocolitis due to Clostridium difficile, not specified as recurrent Status: Acute - Plan Sepsis -due to Recurrent c diff colitis- Diarrhea -improved since off TF repeat C diff 12/28- negative likely - TF diarrhea - CT of abdomen/pelvis- shows diffuse colitis- 12/07 -s/p Oral vancomycin per ID x 10 days - completed 11/21 and prior to this had treatment tapering - - hyper virulent strain -ID f/u appreciated; completed the course of Dificid. -after two weeks of treatment with Vanco; will continue with vanco taper ( started on on 12/24/17); vanco 125 mg po QID x 7days,then vanco 125 mg po BID x 7days,then vanco 125 mg po daily x 7days,then vanco 125 mg po Q48 hrs x 7days,then vanco 125 mg po Q72 hrs x 5 doses - hold TF since 01/02 pm - monitor po intake- 100% po "eats everything" per staff 01/02 - dietitian consulted- ongoing calorie ct Fever: occasional low grade fever - RESOLVED -Infectious disease Dr. Arreola ff- - CXR and UA unremarkable - Repeat CBC with no leukocytosis - Blood cultures NGTD, do not start antibiotics unless there is recurrent fever or obvious source of infection. Right subdural hematoma 18 mm (w/ 15 mm shift)-stable TBI with neurocognitive defects - S/P bone flap on 11/11/17 - Adolfo. - Continue Seroquel - continue PT/OT efforts- ambulating with walker with SBA - patient voiding on his own- reached for the urinal by himself and is continent Respiratory failure - s/p trach; almost closed. Rib fractures -O2 sat stable on room air -repeat CXR 12/24 unremarkable -pulmonary following, appreciate recommendations Inadequate oral intake - IMPROVED - observed and d/w with staff- now eating breakfast feeding himself- per staff he eats breakfast welll- 100% - speech therapy following, appreciate assistance - hold PEG tuibe feedings 12/31 - with persistent diarrhea- c diff negative 12/28- may be TF diarrhea- montior BM and po - dietitian following along - on mechanical soft diet with chopped meat - ongoing Caloriet ct- dietitian ff Hypertension- BP controlled; continue to hold Atenolol. Hypothyroidism; continue Synthroid. DVT prophylaxis: Lovenox, SCDs CM ff with DC planning- patient is from [place], no funding for SNF DVT prophylaxis Lovenox, SCDs Discharge Planning: case management working on placement.
[2018-01-05] MEDS: QUEtiapine 25 MG Tablet PO SCH (21:35)
[2018-01-06] MEDS: levETIRAcetam 500 MG Tablet NG/OG SCH ×2 (09:25→21:00)
[2018-01-06] MEDS: QUEtiapine 25 MG Tablet NG/OG SCH (09:26)
--- NOTE | 2018-01-06 12:04 | P.PNIM ---
Subjective Interval history: in no acute distress. resting comfortable. no fever. Physical Exam Vital signs: Vital Signs 01/05/18 16:00 01/05/18 20:00 01/06/18 00:00 Temperature 98.0 F 98.1 F 97.8 F Pulse Rate 84 74 74 Respiratory Rate 20 18 18 Blood Pressure 133/101 H 103/74 104/80 Pulse Oximetry 95 95 95 01/06/18 04:00 01/06/18 08:00 Temperature 97.7 F 98.0 F Pulse Rate 62 67 Respiratory Rate 16 20 Blood Pressure 112/77 111/74 Pulse Oximetry 96 95 Intake & Output 01/05/18 01/06/18 01/06/18 18:59 06:59 18:59 Intake Total 480 / 480 480 / 480 Output Total 100 / 100 800 / 800 Balance 380 / 380 -320 / -320 Weight 58 kg Intake: Oral 480 / 480 480 / 480 Output: Urine 100 / 100 800 / 800 Other: Date of Last Bowel Movement 01/02/18 01/06/18 # Bowel Movements 1 2 - Constitutional no acute distress - Routine Respiratory Exam Present: CTA bilaterally - Routine Cardiovascular Exam Present: RRR - Routine Abdominal Exam Present: soft - Routine Neurological Exam Present: alert Results - Labs CBC & Chem 7: 12/28/17 08:05 12/30/17 05:57 Assessment and Plan - Assessment (1) Traumatic brain injury Code(s): S06.9X9A - Unspecified intracranial injury with loss of consciousness of unspecified duration, initial encounter Status: Acute (2) C. difficile diarrhea Code(s): A04.72 - Enterocolitis due to Clostridium difficile, not specified as recurrent Status: Acute - Plan Sepsis -due to Recurrent c diff colitis- Diarrhea -improved since off TF repeat C diff 12/28- negative likely - TF diarrhea - CT of abdomen/pelvis- shows diffuse colitis- 12/07 -s/p Oral vancomycin per ID x 10 days - completed 11/21 and prior to this had treatment tapering - - hyper virulent strain -ID f/u appreciated; completed the course of Dificid. -after two weeks of treatment with Vanco; will continue with vanco taper ( started on on 12/24/17); vanco 125 mg po QID x 7days,then vanco 125 mg po BID x 7days,then vanco 125 mg po daily x 7days,then vanco 125 mg po Q48 hrs x 7days,then vanco 125 mg po Q72 hrs x 5 doses - hold TF since 01/02 pm - monitor po intake- - dietitian consulted- ongoing calorie ct Fever: occasional low grade fever - RESOLVED -Infectious disease Dr. Arreola ff- - CXR and UA unremarkable - Repeat CBC with no leukocytosis - Blood cultures NGTD, do not start antibiotics unless there is recurrent fever or obvious source of infection. Right subdural hematoma 18 mm (w/ 15 mm shift)-stable TBI with neurocognitive defects - S/P bone flap on 11/11/17 - Kejamel and Depcasperte. - Continue Seroquel - continue PT/OT efforts- ambulating with walker with SBA - patient voiding on his own- reached for the urinal by himself and is continent Respiratory failure - s/p trach; almost closed. Rib fractures -O2 sat stable on room air -repeat CXR 12/24 unremarkable -pulmonary following, appreciate recommendations Inadequate oral intake - IMPROVED - observed and d/w with staff- now eating breakfast feeding himself- per staff he eats breakfast welll- 100% - speech therapy following, appreciate assistance - hold PEG tuibe feedings 12/31 - with persistent diarrhea- c diff negative 12/28- may be TF diarrhea- montior BM and po - dietitian following along - on mechanical soft diet with chopped meat - ongoing Caloriet ct- dietitian ff Hypertension- BP controlled; continue to hold Atenolol. Hypothyroidism; continue Synthroid. DVT prophylaxis: Lovenox, SCDs CM ff with DC planning- patient is from [place], no funding for SNF DVT prophylaxis Lovenox, SCDs Discharge Planning: case management working on placement.
[2018-01-06] MEDS: QUEtiapine 25 MG Tablet PO SCH (21:00)
[2018-01-07] MEDS: levETIRAcetam 500 MG Tablet NG/OG SCH ×2 (11:00→21:11)
[2018-01-07] MEDS: QUEtiapine 25 MG Tablet NG/OG SCH (11:00)
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
[2018-01-07] MEDS: QUEtiapine 25 MG Tablet PO SCH (21:11)
--- NOTE | 2018-01-08 11:22 | P.PNIM ---
Subjective Interval history: in no acute distress. resting comfortably. no fever. d/w the RN. Physical Exam Vital signs: Vital Signs 01/07/18 12:00 01/07/18 16:00 01/07/18 20:00 Temperature 98.0 F 97.9 F 97.6 F Pulse Rate 70 75 89 Respiratory Rate 20 20 15 Blood Pressure 131/80 106/67 110/73 Pulse Oximetry 96 95 98 01/08/18 00:00 01/08/18 03:56 01/08/18 08:00 Temperature 97.8 F 98 F 97.2 F L Pulse Rate 68 73 64 Respiratory Rate 16 15 18 Blood Pressure 111/58 L 103/60 116/61 Pulse Oximetry 97 94 L 94 L Intake & Output 01/07/18 01/08/18 01/08/18 18:59 06:59 18:59 Intake Total 240 / 240 240 / 240 Output Total 200 / 200 350 / 350 Balance 40 / 40 -110 / -110 Weight 56.9 kg Intake: Oral 240 / 240 240 / 240 Output: Urine 200 / 200 350 / 350 Other: # Voids 2 Date of Last Bowel Movement 01/06/18 # Bowel Movements 1 - Constitutional no acute distress - Routine HEENT Exam Comments: red eyes bilaterally with red conjunctivae. - Routine Respiratory Exam Present: CTA bilaterally - Routine Cardiovascular Exam Present: RRR - Routine Abdominal Exam Present: soft Results - Labs CBC & Chem 7: 12/28/17 08:05 12/30/17 05:57 Assessment and Plan - Assessment (1) Traumatic brain injury Code(s): S06.9X9A - Unspecified intracranial injury with loss of consciousness of unspecified duration, initial encounter Status: Acute (2) C. difficile diarrhea Code(s): A04.72 - Enterocolitis due to Clostridium difficile, not specified as recurrent Status: Acute - Plan Sepsis -due to Recurrent c diff colitis- Diarrhea -improved since off TF repeat C diff 12/28- negative likely - TF diarrhea - CT of abdomen/pelvis- shows diffuse colitis- 12/07 -s/p Oral vancomycin per ID x 10 days - completed 11/21 and prior to this had treatment tapering - - hyper virulent strain -ID f/u appreciated; completed the course of Dificid. -after two weeks of treatment with Vanco; will continue with vanco taper ( started on on 12/24/17); vanco 125 mg po QID x 7days,then vanco 125 mg po BID x 7days,then vanco 125 mg po daily x 7days,then vanco 125 mg po Q48 hrs x 7days,then vanco 125 mg po Q72 hrs x 5 doses - monitor po intake- - dietitian consulted- Fever: occasional low grade fever - RESOLVED -Infectious disease Dr. Arreola ff- - CXR and UA unremarkable - Repeat CBC with no leukocytosis - Blood cultures NGTD, do not start antibiotics unless there is recurrent fever or obvious source of infection. Right subdural hematoma 18 mm (w/ 15 mm shift)-stable TBI with neurocognitive defects - S/P bone flap on 11/11/17 - Adolfo. - Continue Seroquel - continue PT/OT efforts- ambulating with walker with SBA - patient voiding on his own- reached for the urinal by himself and is continent Respiratory failure - s/p trach; almost closed. Rib fractures -O2 sat stable on room air -repeat CXR 12/24 unremarkable -pulmonary following, appreciate recommendations Inadequate oral intake - IMPROVED - dietitian follow- up appreciated. - on mechanical soft diet with chopped meat -will dc tube feeding; will remove the feeding tube next week. Hypertension- BP controlled; continue to hold Atenolol. Hypothyroidism; continue Synthroid. conjunctivitis; start on oph. erythromycin. DVT prophylaxis: Lovenox, SCDs ff with DC planning- patient is from [place], no funding for SNF DVT prophylaxis Lovenox, SCDs Discharge Planning: case management working on placement.
[2018-01-08] MEDS: levETIRAcetam 500 MG Tablet NG/OG SCH ×2 (12:38→21:47)
[2018-01-08] MEDS: QUEtiapine 25 MG Tablet NG/OG SCH (12:38)
[2018-01-08] MEDS: Erythromycin 0.5% Opth Oint 3.5 GM Tube EACH EYE SCH (12:58)
[2018-01-08] MEDS: QUEtiapine 25 MG Tablet PO SCH (21:47)
[2018-01-09] MEDS: Erythromycin 0.5% Opth Oint 3.5 GM Tube EACH EYE SCH ×3 (00:22→20:43)
[2018-01-09] MEDS: levETIRAcetam 500 MG Tablet NG/OG SCH ×2 (09:13→20:43)
[2018-01-09] MEDS: QUEtiapine 25 MG Tablet NG/OG SCH (09:13)
--- NOTE | 2018-01-09 12:21 | P.PNIM ---
Subjective Interval history: in no distress. clinically stable. Physical Exam Vital signs: Vital Signs 01/08/18 16:00 01/08/18 20:00 01/09/18 00:00 Temperature 97.8 F 98.9 F 97.2 F L Pulse Rate 69 72 73 Respiratory Rate 18 16 18 Blood Pressure 106/69 115/77 99/61 L Pulse Oximetry 95 96 92 L 01/09/18 04:00 01/09/18 08:00 Temperature 97.3 F L 97.6 F Pulse Rate 74 64 Respiratory Rate 18 17 Blood Pressure 120/73 118/76 Pulse Oximetry 94 L 95 Intake & Output 01/08/18 01/09/18 01/09/18 18:59 06:59 18:59 Intake Total 480 / 480 Output Total 350 / 350 0 / 0 Balance 130 / 130 0 / 0 Weight 64.3 kg Intake: Oral 480 / 480 Output: Urine 350 / 350 0 / 0 - Constitutional no acute distress - Routine Respiratory Exam Present: CTA bilaterally - Routine Cardiovascular Exam Present: RRR - Routine Abdominal Exam Present: soft Results - Labs CBC & Chem 7: 12/28/17 08:05 12/30/17 05:57 Assessment and Plan - Assessment (1) Traumatic brain injury Code(s): S06.9X9A - Unspecified intracranial injury with loss of consciousness of unspecified duration, initial encounter Status: Acute (2) C. difficile diarrhea Code(s): A04.72 - Enterocolitis due to Clostridium difficile, not specified as recurrent Status: Acute - Plan Sepsis -due to Recurrent c diff colitis- Diarrhea -improved since off TF repeat C diff 12/28- negative likely - TF diarrhea - CT of abdomen/pelvis- shows diffuse colitis- 12/07 -s/p Oral vancomycin per ID x 10 days - completed 11/21 and prior to this had treatment tapering - - hyper virulent strain -ID f/u appreciated; completed the course of Dificid. -after two weeks of treatment with Vanco; will continue with vanco taper ( started on on 12/24/17); vanco 125 mg po QID x 7days,then vanco 125 mg po BID x 7days,then vanco 125 mg po daily x 7days,then vanco 125 mg po Q48 hrs x 7days,then vanco 125 mg po Q72 hrs x 5 doses - monitor po intake- - dietitian consulted- Fever: occasional low grade fever - RESOLVED -Infectious disease Dr. Arreola ff- - CXR and UA unremarkable - Repeat CBC with no leukocytosis - Blood cultures NGTD, do not start antibiotics unless there is recurrent fever or obvious source of infection. Right subdural hematoma 18 mm (w/ 15 mm shift)-stable TBI with neurocognitive defects - S/P bone flap on 11/11/17 - Kepp and Depakote. - Continue Seroquel - continue PT/OT efforts- ambulating with walker with SBA - patient voiding on his own- reached for the urinal by himself and is continent Respiratory failure - s/p trach; almost closed. Rib fractures -O2 sat stable on room air -repeat CXR 12/24 unremarkable -pulmonary following, appreciate recommendations Inadequate oral intake - IMPROVED - dietitian follow- up appreciated. - on mechanical soft diet with chopped meat -will dc tube feeding; will remove the feeding tube next week. Hypertension- BP controlled; continue to hold Atenolol. Hypothyroidism; continue Synthroid. conjunctivitis; started on oph. erythromycin. DVT prophylaxis: Lovenox, SCDs CM ff with DC planning- patient is from [place], no funding for SNF DVT prophylaxis Lovenox, SCDs Discharge Planning: case management working on placement.
[2018-01-09] MEDS: QUEtiapine 25 MG Tablet PO SCH (20:43)
[2018-01-10] MEDS: QUEtiapine 25 MG Tablet NG/OG SCH (09:31)
[2018-01-10] MEDS: levETIRAcetam 500 MG Tablet NG/OG SCH ×2 (09:31→21:32)
[2018-01-10] MEDS: Erythromycin 0.5% Opth Oint 3.5 GM Tube EACH EYE SCH ×2 (09:35→21:32)
--- NOTE | 2018-01-10 11:40 | P.PNIM ---
Subjective Interval history: in no acute distress. denies pain and with no fever. Physical Exam Vital signs: Vital Signs 01/09/18 12:00 01/09/18 16:00 01/09/18 19:55 Temperature 97.2 F L 97.7 F 97.9 F Pulse Rate 77 78 78 Respiratory Rate 17 16 Blood Pressure 123/76 112/69 108/74 Pulse Oximetry 95 95 95 01/10/18 00:00 01/10/18 04:00 01/10/18 08:00 Temperature 97.6 F 97.7 F 97.9 F Pulse Rate 76 73 80 Respiratory Rate 18 18 20 Blood Pressure 134/81 120/70 121/88 Pulse Oximetry 98 95 96 Intake & Output 01/09/18 01/10/18 01/10/18 18:59 06:59 18:59 Intake Total 960 / 960 0 / 0 Output Total 220 / 220 Balance 960 / 960 -220 / -220 Weight 61.4 kg Intake: Oral 960 / 960 0 / 0 Output: Urine 220 / 220 Other: # Voids 2 # Incontinent Voids 3 Date of Last Bowel Movement 01/09/18 01/09/18 01/09/18 # Bowel Movements 0 2 - Constitutional no acute distress - Routine Respiratory Exam Present: CTA bilaterally - Routine Cardiovascular Exam Present: RRR - Routine Abdominal Exam Present: soft Results - Labs CBC & Chem 7: 12/28/17 08:05 12/30/17 05:57 Assessment and Plan - Assessment (1) Traumatic brain injury Code(s): S06.9X9A - Unspecified intracranial injury with loss of consciousness of unspecified duration, initial encounter Status: Acute (2) C. difficile diarrhea Code(s): A04.72 - Enterocolitis due to Clostridium difficile, not specified as recurrent Status: Acute - Plan Sepsis -due to Recurrent c diff colitis- Diarrhea -improved since off TF repeat C diff 12/28- negative likely - TF diarrhea - CT of abdomen/pelvis- shows diffuse colitis- 12/07 -s/p Oral vancomycin per ID x 10 days - completed 11/21 and prior to this had treatment tapering - - hyper virulent strain -ID f/u appreciated; completed the course of Dificid. -after two weeks of treatment with Vanco; will continue with vanco taper ( started on on 12/24/17); vanco 125 mg po QID x 7days,then vanco 125 mg po BID x 7days,then vanco 125 mg po daily x 7days,then vanco 125 mg po Q48 hrs x 7days,then vanco 125 mg po Q72 hrs x 5 doses - monitor po intake- - dietitian consulted- Fever: occasional low grade fever - RESOLVED -Infectious disease Dr. Arreola ff- - CXR and UA unremarkable - Repeat CBC with no leukocytosis - Blood cultures NGTD, do not start antibiotics unless there is recurrent fever or obvious source of infection. Right subdural hematoma 18 mm (w/ 15 mm shift)-stable TBI with neurocognitive defects - S/P bone flap on 11/11/17 - Daniel and Dayami. - Continue Seroquel - continue PT/OT efforts- ambulating with walker with SBA - patient voiding on his own- reached for the urinal by himself and is continent Respiratory failure - s/p trach; almost closed. Rib fractures -O2 sat stable on room air -repeat CXR 12/24 unremarkable -pulmonary following, appreciate recommendations Inadequate oral intake - IMPROVED - dietitian follow- up appreciated. - on mechanical soft diet with chopped meat - dc'ed tube feeding; will remove the feeding tube next week. Hypertension- BP controlled; continue to hold Atenolol. Hypothyroidism; continue Synthroid. conjunctivitis; started on oph. erythromycin. DVT prophylaxis: Lovenox, SCDs ff with DC planning- patient is from [place], no funding for SNF DVT prophylaxis Nilesh, SCDs Discharge Planning: case management working on placement.
[2018-01-10] MEDS: QUEtiapine 25 MG Tablet PO SCH (21:32)
[2018-01-11] MEDS: levETIRAcetam 500 MG Tablet NG/OG SCH ×2 (09:06→21:28)
[2018-01-11] MEDS: QUEtiapine 25 MG Tablet NG/OG SCH (09:06)
[2018-01-11] MEDS: Erythromycin 0.5% Opth Oint 3.5 GM Tube EACH EYE SCH ×2 (09:08→21:28)
--- NOTE | 2018-01-11 11:07 | P.PNIM ---
Subjective Interval history: in no acute distress. no acute issues over night-per RN. Physical Exam Vital signs: Vital Signs 01/10/18 12:00 01/10/18 16:00 01/10/18 20:00 Temperature 98.2 F 98.1 F 97.6 F Pulse Rate 73 80 73 Respiratory Rate 20 20 18 Blood Pressure 105/64 102/60 101/59 L Pulse Oximetry 93 L 94 L 93 L 01/11/18 00:00 01/11/18 04:00 01/11/18 08:00 Temperature 97.7 F 97.6 F 97.5 F L Pulse Rate 77 93 H 63 Respiratory Rate 18 18 20 Blood Pressure 96/57 L 103/58 L 122/84 Pulse Oximetry 95 93 L 96 Intake & Output 01/10/18 01/11/18 01/11/18 18:59 06:59 18:59 Intake Total 720 / 720 480 / 480 Output Total 600 / 600 Balance 720 / 720 -120 / -120 Weight 59.9 kg Intake: Oral 720 / 720 480 / 480 Output: Urine 600 / 600 Other: # Voids 2 Date of Last Bowel Movement 01/09/18 # Bowel Movements 1 - Constitutional no acute distress - Routine Respiratory Exam Present: CTA bilaterally - Routine Cardiovascular Exam Present: RRR - Routine Abdominal Exam Present: soft Results - Labs CBC & Chem 7: 12/28/17 08:05 12/30/17 05:57 Assessment and Plan - Assessment (1) Traumatic brain injury Code(s): S06.9X9A - Unspecified intracranial injury with loss of consciousness of unspecified duration, initial encounter Status: Acute (2) C. difficile diarrhea Code(s): A04.72 - Enterocolitis due to Clostridium difficile, not specified as recurrent Status: Acute - Plan Sepsis -due to Recurrent c diff colitis- Diarrhea -improved since off TF repeat C diff 12/28- negative likely - TF diarrhea - CT of abdomen/pelvis- shows diffuse colitis- 12/07 -s/p Oral vancomycin per ID x 10 days - completed 11/21 and prior to this had treatment tapering - - hyper virulent strain -ID f/u appreciated; completed the course of Dificid. -after two weeks of treatment with Vanco; will continue with vanco taper ( started on on 12/24/17); vanco 125 mg po QID x 7days,then vanco 125 mg po BID x 7days,then vanco 125 mg po daily x 7days,then vanco 125 mg po Q48 hrs x 7days,then vanco 125 mg po Q72 hrs x 5 doses - monitor po intake- - dietitian consulted- Fever: occasional low grade fever - RESOLVED -Infectious disease Dr. Arreola ff- - CXR and UA unremarkable - Repeat CBC with no leukocytosis - Blood cultures NGTD, do not start antibiotics unless there is recurrent fever or obvious source of infection. Right subdural hematoma 18 mm (w/ 15 mm shift)-stable TBI with neurocognitive defects - S/P bone flap on 11/11/17 - Keppra and Depakote. - Continue Seroquel - continue PT/OT efforts- ambulating with walker with SBA - patient voiding on his own- reached for the urinal by himself and is continent Respiratory failure - s/p trach; almost closed. Rib fractures -O2 sat stable on room air -repeat CXR 12/24 unremarkable -pulmonary following, appreciate recommendations Inadequate oral intake - IMPROVED - dietitian follow- up appreciated. - on mechanical soft diet with chopped meat - dc'ed tube feeding; will remove the feeding tube next week. Hypertension- BP controlled; continue to hold Atenolol. Hypothyroidism; continue Synthroid. conjunctivitis; started on oph. erythromycin. DVT prophylaxis: CONST[facility] Galloways ARTEMIO ff with DC planning- patient is from [place], no funding for SNF DVT prophylaxis Russel Galloway Discharge Planning: case management working on placement.
[2018-01-11] MEDS: QUEtiapine 25 MG Tablet PO SCH (21:28)
[2018-01-12] MEDS: levETIRAcetam 500 MG Tablet NG/OG SCH ×2 (08:22→22:06)
[2018-01-12] MEDS: Erythromycin 0.5% Opth Oint 3.5 GM Tube EACH EYE SCH ×2 (08:22→22:06)
[2018-01-12] MEDS: QUEtiapine 25 MG Tablet NG/OG SCH (08:23)
--- NOTE | 2018-01-12 10:42 | P.PNIM ---
Subjective Interval history: in no distress. looks comfortable. d/w the RN and no acute issues over night. Physical Exam Vital signs: Vital Signs 01/11/18 12:00 01/11/18 16:00 01/11/18 20:00 Temperature 97.3 F L 97.8 F 98.1 F Pulse Rate 88 74 72 Respiratory Rate 20 20 17 Blood Pressure 124/95 H 112/80 115/68 Pulse Oximetry 97 95 95 01/12/18 00:00 01/12/18 04:00 01/12/18 08:00 Temperature 98 F 98.4 F 97.4 F L Pulse Rate 71 69 66 Respiratory Rate 16 16 16 Blood Pressure 95/49 L 109/58 L 103/73 Pulse Oximetry 96 98 95 Intake & Output 01/11/18 01/12/18 01/12/18 18:59 06:59 18:59 Intake Total 480 / 480 240 / 240 Output Total 450 / 450 Balance 480 / 480 -210 / -210 Weight 60.5 kg Intake: Oral 480 / 480 240 / 240 Output: Urine 450 / 450 Other: # Voids 5 2 # Bowel Movements 1 - Constitutional no acute distress - Routine Respiratory Exam Present: CTA bilaterally - Routine Cardiovascular Exam Present: RRR - Routine Abdominal Exam Present: soft Results - Labs CBC & Chem 7: 12/28/17 08:05 12/30/17 05:57 Assessment and Plan - Assessment (1) Traumatic brain injury Code(s): S06.9X9A - Unspecified intracranial injury with loss of consciousness of unspecified duration, initial encounter Status: Acute (2) C. difficile diarrhea Code(s): A04.72 - Enterocolitis due to Clostridium difficile, not specified as recurrent Status: Acute - Plan Sepsis -due to Recurrent c diff colitis- Diarrhea -improved since off TF repeat C diff 12/28- negative likely - TF diarrhea - CT of abdomen/pelvis- shows diffuse colitis- 12/07 -s/p Oral vancomycin per ID x 10 days - completed 11/21 and prior to this had treatment tapering - - hyper virulent strain -ID f/u appreciated; completed the course of Dificid. -after two weeks of treatment with Vanco; will continue with vanco taper ( started on on 12/24/17); vanco 125 mg po QID x 7days,then vanco 125 mg po BID x 7days,then vanco 125 mg po daily x 7days,then vanco 125 mg po Q48 hrs x 7days,then vanco 125 mg po Q72 hrs x 5 doses - monitor po intake- - dietitian consulted- Fever: occasional low grade fever - RESOLVED -Infectious disease Dr. Arreola ff- - CXR and UA unremarkable - Repeat CBC with no leukocytosis - Blood cultures NGTD, do not start antibiotics unless there is recurrent fever or obvious source of infection. Right subdural hematoma 18 mm (w/ 15 mm shift)-stable TBI with neurocognitive defects - S/P bone flap on 11/11/17 - Adolfo. - Continue Seroquel - continue PT/OT efforts- ambulating with walker with SBA - patient voiding on his own- reached for the urinal by himself and is continent Respiratory failure - s/p trach; almost closed. Rib fractures -O2 sat stable on room air -repeat CXR 12/24 unremarkable -pulmonary following, appreciate recommendations Inadequate oral intake - IMPROVED - dietitian follow- up appreciated. - on mechanical soft diet with chopped meat - dc'ed tube feeding; will remove the feeding tube this week. Hypertension- BP controlled; continue to hold Atenolol. Hypothyroidism; continue Synthroid. conjunctivitis; started on oph. erythromycin. DVT prophylaxis: Russel Galloway CM ff with DC planning- patient is from [place], no funding for SNF DVT prophylaxis Russel Galloway Discharge Planning: case management working on placement.
[2018-01-12] MEDS: QUEtiapine 25 MG Tablet PO SCH (22:07)
[2018-01-13] MEDS: QUEtiapine 25 MG Tablet NG/OG SCH (09:19)
[2018-01-13] MEDS: levETIRAcetam 500 MG Tablet NG/OG SCH ×2 (09:19→20:58)
[2018-01-13] MEDS: Erythromycin 0.5% Opth Oint 3.5 GM Tube EACH EYE SCH ×2 (09:19→20:58)
--- NOTE | 2018-01-13 11:06 | P.PNIM ---
Subjective Interval history: in no distress. reportedly had a fall last night with no obvious injury or syncopal episode. now is comfortable with no new complaints. Physical Exam Vital signs: Vital Signs 01/12/18 12:00 01/12/18 16:00 01/12/18 20:00 Temperature 97.2 F L 97.9 F 98.1 F Pulse Rate 68 67 75 Respiratory Rate 18 18 17 Blood Pressure 104/63 122/73 119/65 Pulse Oximetry 96 95 96 01/13/18 00:00 01/13/18 01:00 01/13/18 01:51 Temperature 98 F 97.2 F L 97.4 F L Pulse Rate 71 80 82 Respiratory Rate 15 20 16 Blood Pressure 95/53 L 128/88 106/57 L Pulse Oximetry 98 97 95 01/13/18 02:45 01/13/18 04:00 01/13/18 08:00 Temperature 97.8 F 98 F 97.9 F Pulse Rate 68 62 63 Respiratory Rate 18 17 20 Blood Pressure 102/58 L 110/64 105/73 Pulse Oximetry 94 L 95 95 Intake & Output 01/12/18 01/13/18 01/13/18 18:59 06:59 18:59 Intake Total 560 / 560 240 / 240 Output Total 420 / 420 Balance 560 / 560 -180 / -180 Weight 59.9 kg Intake: Oral 560 / 560 240 / 240 Output: Urine 420 / 420 Other: # Voids 6 4 Date of Last Bowel Movement 01/11/18 01/11/18 # Bowel Movements 1 - Constitutional no acute distress - Routine Respiratory Exam Present: CTA bilaterally - Routine Cardiovascular Exam Present: RRR - Routine Abdominal Exam Present: soft Results - Labs CBC & Chem 7: 12/28/17 08:05 12/30/17 05:57 Assessment and Plan - Assessment (1) Traumatic brain injury Code(s): S06.9X9A - Unspecified intracranial injury with loss of consciousness of unspecified duration, initial encounter Status: Acute (2) C. difficile diarrhea Code(s): A04.72 - Enterocolitis due to Clostridium difficile, not specified as recurrent Status: Acute - Plan Sepsis -due to Recurrent c diff colitis- Diarrhea -improved since off TF repeat C diff 12/28- negative likely - TF diarrhea - CT of abdomen/pelvis- shows diffuse colitis- 12/07 -s/p Oral vancomycin per ID x 10 days - completed 11/21 and prior to this had treatment tapering - - hyper virulent strain -ID f/u appreciated; completed the course of Dificid. -after two weeks of treatment with Vanco; will continue with vanco taper ( started on on 12/24/17); vanco 125 mg po QID x 7days,then vanco 125 mg po BID x 7days,then vanco 125 mg po daily x 7days,then vanco 125 mg po Q48 hrs x 7days,then vanco 125 mg po Q72 hrs x 5 doses Fever: occasional low grade fever - RESOLVED -Infectious disease Dr. Arreola ff- - CXR and UA unremarkable - Repeat CBC with no leukocytosis - Blood cultures NGTD, do not start antibiotics unless there is recurrent fever or obvious source of infection. Right subdural hematoma 18 mm (w/ 15 mm shift)-stable TBI with neurocognitive defects - S/P bone flap on 11/11/17 - Keppra and Depakote. - Continue Seroquel - continue PT/OT efforts- ambulating with walker with SBA - patient voiding on his own- reached for the urinal by himself and is continent Respiratory failure - s/p trach; almost closed. Rib fractures -O2 sat stable on room air -repeat CXR 12/24 unremarkable -pulmonary following, appreciate recommendations Inadequate oral intake - IMPROVED - dietitian follow- up appreciated. - on mechanical soft diet with chopped meat - dc'ed tube feeding; will consult IR for feeding tube removal. Hypertension- BP controlled; continue to hold Atenolol. Hypothyroidism; continue Synthroid. conjunctivitis; started on oph. erythromycin. DVT prophylaxis: Lovenox, SCDs CM ff with DC planning- patient is from [place], no funding for SNF DVT prophylaxis Lovenox, SCDs Discharge Planning: case management working on placement.
[2018-01-13] MEDS: QUEtiapine 25 MG Tablet PO SCH (20:58)
[2018-01-14] MEDS: levETIRAcetam 500 MG Tablet NG/OG SCH ×2 (08:30→21:02)
[2018-01-14] MEDS: QUEtiapine 25 MG Tablet NG/OG SCH (08:30)
--- NOTE | 2018-01-14 11:53 | P.PNIM ---
Subjective Interval history: in no distress. looks comfortable. d/w the RN. Physical Exam Vital signs: Vital Signs 01/13/18 12:00 01/13/18 16:00 01/13/18 20:00 Temperature 98.4 F 97.5 F L 97.9 F Pulse Rate 77 73 75 Respiratory Rate 20 20 18 Blood Pressure 120/84 99/66 L 98/70 L Pulse Oximetry 95 95 95 01/14/18 00:00 01/14/18 04:00 01/14/18 08:00 Temperature 97.8 F 97.4 F L 97.8 F Pulse Rate 66 68 66 Respiratory Rate 18 18 16 Blood Pressure 128/86 119/83 105/63 Pulse Oximetry 96 95 97 Intake & Output 01/13/18 01/14/18 01/14/18 18:59 06:59 18:59 Intake Total 240 / 240 Output Total 125 / 125 Balance -125 / -125 240 / 240 Weight 61 kg Intake: Oral 240 / 240 Output: Urine 125 / 125 Other: # Voids 5 6 Date of Last Bowel Movement 01/13/18 # Bowel Movements 1 6 - Constitutional no acute distress - Routine Respiratory Exam Present: CTA bilaterally - Routine Cardiovascular Exam Present: RRR - Routine Abdominal Exam Present: soft Results - Labs CBC & Chem 7: 12/28/17 08:05 12/30/17 05:57 Assessment and Plan - Assessment (1) Traumatic brain injury Code(s): S06.9X9A - Unspecified intracranial injury with loss of consciousness of unspecified duration, initial encounter Status: Acute (2) C. difficile diarrhea Code(s): A04.72 - Enterocolitis due to Clostridium difficile, not specified as recurrent Status: Acute - Plan Sepsis -due to Recurrent c diff colitis- Diarrhea -improved since off TF repeat C diff 12/28- negative likely - TF diarrhea - CT of abdomen/pelvis- shows diffuse colitis- 12/07 -s/p Oral vancomycin per ID x 10 days - completed 11/21 and prior to this had treatment tapering - - hyper virulent strain -ID f/u appreciated; completed the course of Dificid. -after two weeks of treatment with Vanco; will continue with vanco taper ( started on on 12/24/17); vanco 125 mg po QID x 7days,then vanco 125 mg po BID x 7days,then vanco 125 mg po daily x 7days,then vanco 125 mg po Q48 hrs x 7days,then vanco 125 mg po Q72 hrs x 5 doses Fever: occasional low grade fever - RESOLVED -Infectious disease Dr. Arreola ff- - CXR and UA unremarkable - Repeat CBC with no leukocytosis - Blood cultures NGTD, do not start antibiotics unless there is recurrent fever or obvious source of infection. Right subdural hematoma 18 mm (w/ 15 mm shift)-stable TBI with neurocognitive defects - S/P bone flap on 11/11/17 - Adolfo. - Continue Seroquel - continue PT/OT efforts- ambulating with walker with SBA - patient voiding on his own- reached for the urinal by himself and is continent Respiratory failure - s/p trach; almost closed. Rib fractures -O2 sat stable on room air -repeat CXR 12/24 unremarkable -pulmonary following, appreciate recommendations Inadequate oral intake - IMPROVED - dietitian follow- up appreciated. - on mechanical soft diet with chopped meat - feeding tube was removed ( 01/14). Hypertension- BP controlled; continue to hold Atenolol. Hypothyroidism; continue Synthroid. conjunctivitis; started on oph. erythromycin. DVT prophylaxis: Lovenox, SCDs CM ff with DC planning- patient is from [place], no funding for SNF DVT prophylaxis [facility] Galloways Discharge Planning: case management working on placement.
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
[2018-01-14] MEDS: QUEtiapine 25 MG Tablet PO SCH (21:02)
[2018-01-15] MEDS: levETIRAcetam 500 MG Tablet NG/OG SCH ×2 (09:31→21:45)
[2018-01-15] MEDS: QUEtiapine 25 MG Tablet NG/OG SCH (09:31)
--- NOTE | 2018-01-15 11:10 | P.PNIM ---
Subjective Interval history: in no distress. reportedly had some dysuria and urinary urgency. no fever. d/w the RN. Physical Exam Vital signs: Vital Signs 01/14/18 12:00 01/14/18 15:26 01/14/18 16:00 Temperature 97.6 F 97.3 F L 97.3 F L Pulse Rate 65 67 67 Respiratory Rate 16 16 16 Blood Pressure 98/60 L 143/91 H 143/91 H Pulse Oximetry 95 97 01/14/18 20:00 01/14/18 23:15 01/15/18 03:22 Temperature 97.2 F L 97.9 F 97.8 F Pulse Rate 68 65 82 Respiratory Rate 18 16 18 Blood Pressure 107/63 103/80 112/78 Pulse Oximetry 96 96 96 01/15/18 08:00 Temperature 97.2 F L Pulse Rate 59 L Respiratory Rate 16 Blood Pressure 115/71 Pulse Oximetry 95 Intake & Output 01/14/18 01/15/18 01/15/18 18:59 06:59 18:59 Intake Total 1160 / 1160 480 / 480 Output Total 700 / 700 Balance 460 / 460 480 / 480 Weight 61.3 kg Intake: Oral 1160 / 1160 480 / 480 Output: Urine 700 / 700 Other: # Voids 5 8 Date of Last Bowel Movement 01/14/18 # Bowel Movements 1 3 - Constitutional no acute distress - Routine Respiratory Exam Present: CTA bilaterally - Routine Cardiovascular Exam Present: RRR - Routine Abdominal Exam Present: soft Results - Labs CBC & Chem 7: 12/28/17 08:05 12/30/17 05:57 Assessment and Plan - Assessment (1) Traumatic brain injury Code(s): S06.9X9A - Unspecified intracranial injury with loss of consciousness of unspecified duration, initial encounter Status: Acute (2) C. difficile diarrhea Code(s): A04.72 - Enterocolitis due to Clostridium difficile, not specified as recurrent Status: Acute - Plan Sepsis -due to Recurrent c diff colitis- Diarrhea -improved since off TF repeat C diff 12/28- negative likely - TF diarrhea - CT of abdomen/pelvis- shows diffuse colitis- 12/07 -s/p Oral vancomycin per ID x 10 days - completed 11/21 and prior to this had treatment tapering - - hyper virulent strain -ID f/u appreciated; completed the course of Dificid. -after two weeks of treatment with Vanco; will continue with vanco taper ( started on on 12/24/17); vanco 125 mg po QID x 7days,then vanco 125 mg po BID x 7days,then vanco 125 mg po daily x 7days,then vanco 125 mg po Q48 hrs x 7days,then vanco 125 mg po Q72 hrs x 5 doses Fever: occasional low grade fever - RESOLVED -Infectious disease Dr. Arreola ff- - CXR and UA unremarkable - Repeat CBC with no leukocytosis - Blood cultures NGTD, do not start antibiotics unless there is recurrent fever or obvious source of infection. Right subdural hematoma 18 mm (w/ 15 mm shift)-stable TBI with neurocognitive defects - S/P bone flap on 11/11/17 - Adolfo. - Continue Seroquel - continue PT/OT efforts- ambulating with walker with SBA - patient voiding on his own- reached for the urinal by himself and is continent Respiratory failure - s/p trach; almost closed. Rib fractures -O2 sat stable on room air -repeat CXR 12/24 unremarkable -pulmonary following, appreciate recommendations Inadequate oral intake - IMPROVED - dietitian follow- up appreciated. - on mechanical soft diet with chopped meat - feeding tube was removed ( 01/14). Hypertension- BP controlled; continue to hold Atenolol. Hypothyroidism; continue Synthroid. conjunctivitis; treated with oph. erythromycin. dysuria; check UA DVT prophylaxis: Lovenox, SCDs CM ff with DC planning- patient is from [place], no funding for SNF DVT prophylaxis Lovenox, SCDs Discharge Planning: case management working on placement.
[2018-01-15 12:49] LABS: Bilirubin,Urine Negative (Negative); Clarity,Urine Clear (Clear); Color,Urine Straw (Yellw/Straw); Glucose,Urine (UA) Negative (Negative); Leukocyte Esterase,Urine Negative (Negative); Nitrite,Urine Negative (Negative); Specific Gravity,Urine 1.002 (1.002-1.035)
[2018-01-15] MEDS: QUEtiapine 25 MG Tablet PO SCH (21:45)
[2018-01-16] MEDS: levETIRAcetam 500 MG Tablet NG/OG SCH ×2 (08:29→20:08)
[2018-01-16] MEDS: QUEtiapine 25 MG Tablet NG/OG SCH (08:30)
--- NOTE | 2018-01-16 08:38 | IR ---
EXAM DATE: 01/14/2018 5:33 PM EDT AGE/SEX: 52 years / Male INDICATIONS: Patient with history of traumatic brain injury in need of GJ tube removal. CLINICAL DATA: This is the patient's subsequent encounter. Patient reports that signs and symptoms h ave been present for 4 - 6 months and indicates a pain score of 0/10. MEDICAL/SURGICAL HISTORY: Unknown Unknown COMPARISON: No prior exams available for comparison. FLUORO TIME (min): 0.0 IMAGE SERIES: 0 ACCESS SITE: DEVICE(S): . . PROCEDURE : 1. Gastrojejunostomy catheter removal. The risks, benefits and alternatives to the procedure were explained and verbal and written consent w as obtained. The site was prepped in sterile fashion. Full sterile technique was used, including ca p, mask, sterile gloves and gown and a large sterile sheet. Hand hygiene and 2% chlorhexidine and/or betadine/alcohol prep was utilized per protocol for cutaneous antisepsis. The skin and subcutaneous tissues were infiltrated with local anesthetic solution. The gastrojejunostomy catheter balloon was deflated and the catheter was removed. Small dressing was applied to the gastrostomy site. CONCLUSION: 1. Uncomplicated gastrojejunostomy catheter removal. Electronically signed by: Wes Pereira MD 01/16/2018 8:36 AM EDT
--- NOTE | 2018-01-16 11:19 | P.PNIM ---
Subjective Interval history: in no distress. clinically the same. d/w the RN. Physical Exam Vital signs: Vital Signs 01/15/18 12:00 01/15/18 16:00 01/15/18 20:00 Temperature 97.8 F 97.7 F 98.6 F Pulse Rate 65 72 71 Respiratory Rate 16 16 18 Blood Pressure 111/61 112/63 111/63 Pulse Oximetry 95 96 96 01/15/18 23:38 01/16/18 03:49 01/16/18 08:00 Temperature 98.4 F 98.4 F 97.4 F L Pulse Rate 82 68 75 Respiratory Rate 16 16 17 Blood Pressure 113/65 107/72 109/62 Pulse Oximetry 98 100 95 Intake & Output 01/15/18 01/16/18 01/16/18 18:59 06:59 18:59 Intake Total 480 / 480 Balance 480 / 480 Intake: Oral 480 / 480 Other: # Voids 3 Date of Last Bowel Movement 01/15/18 - Constitutional no acute distress - Routine Respiratory Exam Present: CTA bilaterally - Routine Cardiovascular Exam Present: RRR - Routine Abdominal Exam Present: soft Results - Labs CBC & Chem 7: 12/28/17 08:05 12/30/17 05:57 Laboratory Results - last 24 hr 01/15/18 11:56 Urine Color Straw Urine Clarity Clear Urine pH 8.0 Ur Specific [place] 1.002 Urine Protein Negative Urine Glucose (UA) Negative Urine Ketones Negative Urine Occult Blood Negative Urine Nitrate Negative Urine Bilirubin Negative Urine Urobilinogen Less than 2 Ur Leukocyte Esterase Negative Urine RBC Less than 1 Urine WBC Less than 1 Micro UA Comment Culture not ind Ur Microscopic Review Not Reportable Urine Culture Comments Culture not ind - Imaging Impressions Gastrostomy Tube Removal 01/14/18 00:00 CONCLUSION: 1. Uncomplicated gastrojejunostomy catheter removal. Assessment and Plan - Assessment (1) Traumatic brain injury Code(s): S06.9X9A - Unspecified intracranial injury with loss of consciousness of unspecified duration, initial encounter Status: Acute (2) C. difficile diarrhea Code(s): A04.72 - Enterocolitis due to Clostridium difficile, not specified as recurrent Status: Acute - Plan Sepsis -due to Recurrent c diff colitis- Diarrhea -improved since off TF repeat C diff 12/28- negative likely - TF diarrhea - CT of abdomen/pelvis- shows diffuse colitis- 12/07 -s/p Oral vancomycin per ID x 10 days - completed 11/21 and prior to this had treatment tapering - - hyper virulent strain -ID f/u appreciated; completed the course of Dificid. -after two weeks of treatment with Vanco; will continue with vanco taper ( started on on 12/24/17); vanco 125 mg po QID x 7days,then vanco 125 mg po BID x 7days,then vanco 125 mg po daily x 7days,then vanco 125 mg po Q48 hrs x 7days,then vanco 125 mg po Q72 hrs x 5 doses Fever: occasional low grade fever - RESOLVED -Infectious disease Dr. Arreola ff- - CXR and UA unremarkable - Repeat CBC with no leukocytosis - Blood cultures NGTD, do not start antibiotics unless there is recurrent fever or obvious source of infection. Right subdural hematoma 18 mm (w/ 15 mm shift)-stable TBI with neurocognitive defects - S/P bone flap on 11/11/17 - Daniel and Depcasperte. - Continue Seroquel - continue PT/OT efforts- ambulating with walker with SBA - patient voiding on his own- reached for the urinal by himself and is continent Respiratory failure - s/p trach; almost closed. Rib fractures -O2 sat stable on room air -repeat CXR 12/24 unremarkable -pulmonary following, appreciate recommendations Inadequate oral intake - IMPROVED - dietitian follow- up appreciated. - on mechanical soft diet with chopped meat - feeding tube was removed ( 01/14). Hypertension- BP controlled; continue to hold Atenolol. Hypothyroidism; continue Synthroid. conjunctivitis; treated with oph. erythromycin. dysuria;repeated UA negative. DVT prophylaxis: Lovenox, SCDs CM ff with DC planning- patient is from [place], no funding for SNF DVT prophylaxis Lovenox, SCDs Discharge Planning: case management working on placement.
[2018-01-16] MEDS: QUEtiapine 25 MG Tablet PO SCH (20:08)
[2018-01-17] MEDS: levETIRAcetam 500 MG Tablet NG/OG SCH ×2 (08:16→21:13)
[2018-01-17] MEDS: QUEtiapine 25 MG Tablet NG/OG SCH (08:16)
--- NOTE | 2018-01-17 12:02 | P.PNIM ---
Subjective Interval history: in no acute distress. clinically the same. Physical Exam Vital signs: Vital Signs 01/16/18 16:00 01/16/18 20:00 01/17/18 00:00 Temperature 97.6 F 98.0 F 98.3 F Pulse Rate 65 82 76 Respiratory Rate 17 19 18 Blood Pressure 133/70 123/86 98/58 L Pulse Oximetry 93 L 94 L 96 01/17/18 04:00 01/17/18 08:00 Temperature 97.5 F L 98.3 F Pulse Rate 70 72 Respiratory Rate 18 18 Blood Pressure 111/70 119/74 Pulse Oximetry 93 L 96 Intake & Output 01/16/18 01/17/18 01/17/18 18:59 06:59 18:59 Weight 60.8 kg Other: Date of Last Bowel Movement 01/16/18 01/16/18 01/16/18 - Constitutional no acute distress - Routine Respiratory Exam Present: CTA bilaterally - Routine Cardiovascular Exam Present: RRR - Routine Abdominal Exam Present: soft Results - Labs CBC & Chem 7: 12/28/17 08:05 12/30/17 05:57 Assessment and Plan - Assessment (1) Traumatic brain injury Code(s): S06.9X9A - Unspecified intracranial injury with loss of consciousness of unspecified duration, initial encounter Status: Acute (2) C. difficile diarrhea Code(s): A04.72 - Enterocolitis due to Clostridium difficile, not specified as recurrent Status: Acute - Plan Sepsis -due to Recurrent c diff colitis- Diarrhea -improved since off TF repeat C diff 12/28- negative likely - TF diarrhea - CT of abdomen/pelvis- shows diffuse colitis- 12/07 -s/p Oral vancomycin per ID x 10 days - completed 11/21 and prior to this had treatment tapering - - hyper virulent strain -ID f/u appreciated; completed the course of Dificid. -after two weeks of treatment with Vanco; will continue with vanco taper ( started on on 12/24/17); vanco 125 mg po QID x 7days,then vanco 125 mg po BID x 7days,then vanco 125 mg po daily x 7days,then vanco 125 mg po Q48 hrs x 7days,then vanco 125 mg po Q72 hrs x 5 doses Fever: occasional low grade fever - RESOLVED -Infectious disease Dr. Arreola ff- - CXR and UA unremarkable - Repeat CBC with no leukocytosis - Blood cultures NGTD, do not start antibiotics unless there is recurrent fever or obvious source of infection. Right subdural hematoma 18 mm (w/ 15 mm shift)-stable TBI with neurocognitive defects - S/P bone flap on 11/11/17 - Adolfo. - Continue Seroquel - continue PT/OT efforts- ambulating with walker with SBA - patient voiding on his own- reached for the urinal by himself and is continent Respiratory failure - s/p trach; almost closed. Rib fractures -O2 sat stable on room air -repeat CXR 12/24 unremarkable -pulmonary following, appreciate recommendations Inadequate oral intake - IMPROVED - dietitian follow- up appreciated. - on mechanical soft diet with chopped meat - feeding tube was removed ( 01/14). Hypertension- BP controlled; continue to hold Atenolol. Hypothyroidism; continue Synthroid. conjunctivitis; treated with oph. erythromycin. dysuria;repeated UA negative. DVT prophylaxis: CONSTANCE Galloways ff with DC planning- patient is from [place], no funding for SNF DVT prophylaxis CONSTANCE Galloways Discharge Planning: case management working on placement.
[2018-01-17] MEDS: QUEtiapine 25 MG Tablet PO SCH (21:13)
[2018-01-18] MEDS: QUEtiapine 25 MG Tablet NG/OG SCH (09:43)
[2018-01-18] MEDS: levETIRAcetam 500 MG Tablet NG/OG SCH ×2 (09:43→20:39)
--- NOTE | 2018-01-18 15:12 | P.PN ---
Subjective Interval history: Follow up for sepsis, Cdiff, fever. Patient awake, oriented 2. He speaks Welsh only. He reports no pain, eating okay. Yesterday he ambulated with physical therapy. No fever. No acute changes overnight. Physical Exam Vital signs: Vital Signs 01/17/18 16:00 01/17/18 20:00 01/18/18 00:00 Temperature 97.8 F 97.3 F L 98.0 F Pulse Rate 86 73 75 Respiratory Rate 18 18 18 Blood Pressure 125/78 116/72 125/72 Pulse Oximetry 96 95 93 L 01/18/18 04:00 01/18/18 08:00 01/18/18 12:00 Temperature 97.7 F 97.8 F 97.9 F Pulse Rate 69 56 L 69 Respiratory Rate 17 18 Blood Pressure 108/64 115/74 120/77 Pulse Oximetry 96 96 95 Intake & Output 01/17/18 01/18/18 01/18/18 18:59 06:59 18:59 Weight 60.7 kg Other: Date of Last Bowel Movement 01/16/18 Narrative: GENERAL: Well-nourished, well-developed middle aged male patient in [facility]. SKIN: Warm and dry. No rash. HEENT: Normocephalic. Atraumatic. Injected conjunctiva. CARDIOVASCULAR: Regular rate and rhythm. No murmur appreciated. RESPIRATORY: No accessory muscle use. Clear to auscultation. Breath sounds equal bilaterally. GASTROINTESTINAL: Abdomen soft, non-tender, nondistended. Normoactive bowel sounds x4. MUSCULOSKELETAL: No obvious deformities. Extremities without clubbing, cyanosis , or edema. NEUROLOGICAL: Awake and alert And oriented 2. No obvious cranial nerve deficits. Moving all extremities spontaneously. Normal speech. Results - Labs CBC & Chem 7: 12/28/17 08:05 12/30/17 05:57 Assessment and Plan - Assessment (1) Traumatic brain injury Code(s): S06.9X9A - Unspecified intracranial injury with loss of consciousness of unspecified duration, initial encounter Status: Acute (2) C. difficile diarrhea Code(s): A04.72 - Enterocolitis due to Clostridium difficile, not specified as recurrent Status: Acute - Plan Sepsis -due to Recurrent c diff colitis- Diarrhea -improved since off TF repeat C diff /- negative likely - TF diarrhea - CT of abdomen/pelvis- shows diffuse colitis- 12/07 -s/p Oral vancomycin per ID x 10 days - completed 11/21 and prior to this had treatment tapering - - hyper virulent strain -ID f/u appreciated; completed the course of Dificid. -after two weeks of treatment with Vanco; will continue with vanco taper ( started on on 12/24/17); vanco 125 mg po QID x 7days,then vanco 125 mg po BID x 7days,then vanco 125 mg po daily x 7days,then vanco 125 mg po Q48 hrs x 7days,then vanco 125 mg po Q72 hrs x 5 doses Fever: occasional low grade fever - RESOLVED -Infectious disease Dr. Arreola ff- - CXR and UA unremarkable - Repeat CBC with no leukocytosis - Blood cultures NGTD, do not start antibiotics unless there is recurrent fever or obvious source of infection. Right subdural hematoma 18 mm (w/ 15 mm shift)-stable TBI with neurocognitive defects - S/P bone flap on 11/11/17 - Kepp and Depakote. - Continue Seroquel - continue PT/OT efforts- ambulating with walker with SBA Respiratory failure - s/p trach; almost closed. Rib fractures -O2 sat stable on room air -repeat CXR 12/24 unremarkable -pulmonary following, appreciate recommendations Inadequate oral intake - IMPROVED - dietitian follow- up appreciated. - on mechanical soft diet with chopped meat - feeding tube was removed ( 01/14). Hypertension- BP controlled; continue to hold Atenolol. Hypothyroidism; continue Synthroid. conjunctivitis; treated with oph. erythromycin. dysuria;repeated UA negative. DVT prophylaxis: CONSTANCE Galloways CM following for DC planning- patient is from [place], no funding for SNF DVT prophylaxis CONSTANCE Galloways
[2018-01-18] MEDS: QUEtiapine 25 MG Tablet PO SCH (20:39)
[2018-01-19] MEDS: QUEtiapine 25 MG Tablet NG/OG SCH (09:07)
[2018-01-19] MEDS: levETIRAcetam 500 MG Tablet NG/OG SCH ×2 (09:07→21:32)
--- NOTE | 2018-01-19 10:11 | P.PN ---
Subjective Interval history: Follow up for sepsis, Cdiff, fever. Patient awake, oriented 2. Reports to complaints, no acute changes overnight. Physical Exam Vital signs: Vital Signs 01/18/18 12:00 01/18/18 20:00 01/19/18 00:00 Temperature 97.9 F 97.8 F 98 F Pulse Rate 69 83 80 Respiratory Rate 18 16 17 Blood Pressure 120/77 105/68 109/71 Pulse Oximetry 95 97 97 01/19/18 04:00 Temperature 98 F Pulse Rate 81 Respiratory Rate 16 Blood Pressure 104/69 Pulse Oximetry 97 Intake & Output 01/18/18 01/19/18 01/19/18 18:59 06:59 18:59 Weight 60.8 kg Other: Date of Last Bowel Movement 01/16/18 Narrative: GENERAL: Well-nourished, well-developed middle aged male patient in [facility]. SKIN: Warm and dry. No rash. HEENT: Normocephalic. Atraumatic. Mildly erythematous conjunctiva. Pupils irregular CARDIOVASCULAR: Regular rate and rhythm. No murmur appreciated. RESPIRATORY: No accessory muscle use. Clear to auscultation. Breath sounds equal bilaterally. GASTROINTESTINAL: Abdomen soft, non-tender, nondistended. Normoactive bowel sounds x4. MUSCULOSKELETAL: No obvious deformities. Extremities without clubbing, cyanosis , or edema. NEUROLOGICAL: Awake and alert And oriented 2. No obvious cranial nerve deficits. Moving all extremities spontaneously. Normal speech. Results - Labs CBC & Chem 7: 12/28/17 08:05 12/30/17 05:57 Assessment and Plan - Assessment (1) Traumatic brain injury Code(s): S06.9X9A - Unspecified intracranial injury with loss of consciousness of unspecified duration, initial encounter Status: Acute (2) C. difficile diarrhea Code(s): A04.72 - Enterocolitis due to Clostridium difficile, not specified as recurrent Status: Acute - Plan Sepsis -due to Recurrent c diff colitis- Diarrhea -improved since off TF repeat C diff 12/28- negative likely - TF diarrhea - CT of abdomen/pelvis- shows diffuse colitis- 12/07 -s/p Oral vancomycin per ID x 10 days - completed 11/21 and prior to this had treatment tapering - - hyper virulent strain -ID f/u appreciated; completed the course of Dificid. -after two weeks of treatment with Vanco; will continue with vanco taper ( started on on 12/24/17); vanco 125 mg po QID x 7days,then vanco 125 mg po BID x 7days,then vanco 125 mg po daily x 7days,then vanco 125 mg po Q48 hrs x 7days,then vanco 125 mg po Q72 hrs x 5 doses Fever: occasional low grade fever - RESOLVED -Infectious disease Dr. Arreola ff- - CXR and UA unremarkable - Repeat CBC with no leukocytosis - Blood cultures NGTD, do not start antibiotics unless there is recurrent fever or obvious source of infection. Right subdural hematoma 18 mm (w/ 15 mm shift)-stable TBI with neurocognitive defects - S/P bone flap on 11/11/17 - Daniel and [place]. - Continue Seroquel - continue PT/OT efforts- ambulating with walker with SBA Respiratory failure - s/p trach; almost closed. Rib fractures -O2 sat stable on room air -repeat CXR 12/24 unremarkable -pulmonary following, appreciate recommendations Inadequate oral intake - IMPROVED - dietitian follow- up appreciated. - on mechanical soft diet with chopped meat - feeding tube was removed ( 01/14). Hypertension- BP controlled; continue to hold Atenolol. Hypothyroidism; continue Synthroid. conjunctivitis; treated with oph. erythromycin. dysuria;repeated UA negative. DVT prophylaxis: Russel Galloway CM following for DC planning- patient is from [place], no funding for SNF DVT prophylaxis Russel Galloway
[2018-01-19] MEDS: QUEtiapine 25 MG Tablet PO SCH (21:32)
[2018-01-20] MEDS: QUEtiapine 25 MG Tablet NG/OG SCH (09:37)
[2018-01-20] MEDS: levETIRAcetam 500 MG Tablet NG/OG SCH ×2 (09:37→21:00)
--- NOTE | 2018-01-20 10:22 | P.PN ---
Subjective Interval history: Follow up for sepsis, Cdiff, fever. Patient awake, oriented 2-3. Reports to complaints, no acute changes overnight. Ambulates with assistance. No diarrhea. Good appetite Physical Exam Vital signs: Vital Signs 01/19/18 12:00 01/19/18 16:00 01/19/18 20:00 Temperature 97.7 F 97.9 F 97.8 F Pulse Rate 84 74 75 Respiratory Rate 18 18 16 Blood Pressure 112/78 110/73 110/64 Pulse Oximetry 95 95 97 01/20/18 00:00 01/20/18 04:00 01/20/18 08:00 Temperature 97.2 F L 97.8 F 97.5 F L Pulse Rate 80 71 76 Respiratory Rate 16 16 17 Blood Pressure 104/65 107/63 138/94 H Pulse Oximetry 97 95 98 Intake & Output 01/19/18 01/20/18 01/20/18 18:59 06:59 18:59 Weight 62 kg Other: Date of Last Bowel Movement 01/16/18 01/16/18 Narrative: GENERAL: Well-nourished, well-developed middle aged male patient in [facility]. SKIN: Warm and dry. No rash. HEENT: Normocephalic. Atraumatic. Mildly erythematous conjunctiva. Pupils irregular CARDIOVASCULAR: Regular rate and rhythm. No murmur appreciated. RESPIRATORY: No accessory muscle use. Clear to auscultation. Breath sounds equal bilaterally. GASTROINTESTINAL: Abdomen soft, non-tender, nondistended. Normoactive bowel sounds x4. MUSCULOSKELETAL: No obvious deformities. Extremities without clubbing, cyanosis , or edema. NEUROLOGICAL: Awake and alert And oriented 2-3. No obvious cranial nerve deficits. Moving all extremities spontaneously. Normal speech. Results - Labs CBC & Chem 7: 12/28/17 08:05 12/30/17 05:57 Assessment and Plan - Assessment (1) Traumatic brain injury Code(s): S06.9X9A - Unspecified intracranial injury with loss of consciousness of unspecified duration, initial encounter Status: Acute (2) C. difficile diarrhea Code(s): A04.72 - Enterocolitis due to Clostridium difficile, not specified as recurrent Status: Acute - Plan Sepsis -due to Recurrent c diff colitis- Diarrhea -improved since off TF repeat C diff /- negative likely - TF diarrhea - CT of abdomen/pelvis- shows diffuse colitis- 7/14 -s/p Oral vancomycin per ID x 10 days - completed 11/21 and prior to this had treatment tapering - - hyper virulent strain -ID f/u appreciated; completed the course of Dificid. -after two weeks of treatment with Vanco; will continue with vanco taper ( started on on 12/24/17); vanco 125 mg po QID x 7days,then vanco 125 mg po BID x 7days,then vanco 125 mg po daily x 7days,then vanco 125 mg po Q48 hrs x 7days,then vanco 125 mg po Q72 hrs x 5 doses Fever: occasional low grade fever - RESOLVED -Infectious disease Dr. Arreola ff- - CXR and UA unremarkable - Repeat CBC with no leukocytosis - Blood cultures NGTD, do not start antibiotics unless there is recurrent fever or obvious source of infection. Right subdural hematoma 18 mm (w/ 15 mm shift)-stable TBI with neurocognitive defects - S/P bone flap on 11/11/17 - Keppra and Depakote. - Continue Seroquel - continue PT/OT efforts- ambulating with walker with SBA Respiratory failure - s/p trach; almost closed. Rib fractures -O2 sat stable on room air -repeat CXR 12/24 unremarkable -pulmonary following, appreciate recommendations Inadequate oral intake - IMPROVED - dietitian follow- up appreciated. - on mechanical soft diet with chopped meat - feeding tube was removed ( 01/14). Hypertension- BP controlled; continue to hold Atenolol. Hypothyroidism; continue Synthroid. conjunctivitis; treated with oph. erythromycin. dysuria;repeated UA negative. DVT prophylaxis: Russel Galloway CM following for DC planning- patient is from [place], no funding for SNF DVT prophylaxis CONSTANCE Galloways
[2018-01-20] MEDS: QUEtiapine 25 MG Tablet PO SCH (21:00)
[2018-01-21] MEDS: QUEtiapine 25 MG Tablet NG/OG SCH (09:32)
[2018-01-21] MEDS: levETIRAcetam 500 MG Tablet NG/OG SCH ×2 (09:32→20:29)
--- NOTE | 2018-01-21 15:37 | P.PNIM ---
Subjective Interval history: The patient was resting comfortably in bed. He denied any discomfort in his eyes. He did not indicate any difficulty with diarrhea or abdominal pain. Physical Exam Vital signs: Vital Signs 01/20/18 16:00 01/20/18 20:00 01/21/18 00:00 Temperature 97.5 F L 98.8 F 97.6 F Pulse Rate 75 76 Respiratory Rate 17 17 15 Blood Pressure 120/72 128/76 114/69 Pulse Oximetry 94 L 96 98 01/21/18 04:00 01/21/18 08:00 Temperature 98.1 F 98.4 F Pulse Rate 70 77 Respiratory Rate 15 20 Blood Pressure 116/66 100/56 L Pulse Oximetry 94 L 96 Intake & Output 01/20/18 01/21/18 01/21/18 18:59 06:59 18:59 Intake Total 420 / 420 Output Total 700 / 700 Balance -280 / -280 Weight 61.8 kg Intake: Oral 420 / 420 Output: Urine 700 / 700 Other: # Voids 2 Date of Last Bowel Movement 01/16/18 01/16/18 01/16/18 # Bowel Movements 1 Narrative: GENERAL: Well-nourished, well-developed middle aged male patient in [facility]. SKIN: Warm and dry. No rash. HEENT: Normocephalic. Atraumatic. Mildly erythematous conjunctiva. Pupils irregular CARDIOVASCULAR: Regular rate and rhythm. No murmur appreciated. RESPIRATORY: No accessory muscle use. Clear to auscultation. Breath sounds equal bilaterally. GASTROINTESTINAL: Abdomen soft, non-tender, nondistended. Normoactive bowel sounds x4. MUSCULOSKELETAL: No obvious deformities. Extremities without clubbing, cyanosis , or edema. NEUROLOGICAL: Awake and alert And oriented 2-3. No obvious cranial nerve deficits. Moving all extremities spontaneously. Normal speech. Results - Labs CBC & Chem 7: 12/28/17 08:05 12/30/17 05:57 Assessment and Plan - Assessment (1) Traumatic brain injury Code(s): S06.9X9A - Unspecified intracranial injury with loss of consciousness of unspecified duration, initial encounter Status: Acute (2) C. difficile diarrhea Code(s): A04.72 - Enterocolitis due to Clostridium difficile, not specified as recurrent Status: Acute - Plan Sepsis -due to Recurrent c diff colitis- Diarrhea -improved since off TF repeat C diff 12/28- negative likely - TF diarrhea - CT of abdomen/pelvis- shows diffuse colitis- 12/07 -s/p Oral vancomycin per ID x 10 days - completed 11/21 and prior to this had treatment tapering - - hyper virulent strain -ID f/u appreciated; completed the course of Dificid. -after two weeks of treatment with Vanco; will continue with vanco taper ( started on on 12/24/17); vanco 125 mg po QID x 7days,then vanco 125 mg po BID x 7days,then vanco 125 mg po daily x 7days,then vanco 125 mg po Q48 hrs x 7days,then vanco 125 mg po Q72 hrs x 5 doses Fever: occasional low grade fever - RESOLVED -Infectious disease Dr. Arreola ff- - CXR and UA unremarkable - Repeat CBC with no leukocytosis - Blood cultures NGTD, do not start antibiotics unless there is recurrent fever or obvious source of infection. Right subdural hematoma 18 mm (w/ 15 mm shift)-stable TBI with neurocognitive defects - S/P bone flap on 11/11/17 - Keppra and Depakote. - Continue Seroquel - continue PT/OT efforts- ambulating with walker with SBA Respiratory failure - s/p trach; almost closed. Rib fractures -O2 sat stable on room air -repeat CXR 12/24 unremarkable -pulmonary following, appreciate recommendations Inadequate oral intake - IMPROVED - dietitian follow- up appreciated. - on mechanical soft diet with chopped meat - feeding tube was removed ( 01/14). Hypertension- BP controlled; continue to hold Atenolol. Hypothyroidism; continue Synthroid. conjunctivitis; treated with oph. erythromycin. Still with bilateral injection. -Polytrim gtts ordered. DVT prophylaxis: Lovenox, SCDs Discharge Planning: CM following for DC planning- patient is from [place], no funding for SNF
[2018-01-21] MEDS: Polymyxin/Trimethop Opth Drops 10 ML Bottle EACH EYE SCH (17:10)
[2018-01-21] MEDS: QUEtiapine 25 MG Tablet PO SCH (20:30)
[2018-01-22] MEDS: Polymyxin/Trimethop Opth Drops 10 ML Bottle EACH EYE SCH ×4 (00:36→18:29)
[2018-01-22] MEDS: levETIRAcetam 500 MG Tablet NG/OG SCH ×2 (08:10→21:45)
[2018-01-22] MEDS: QUEtiapine 25 MG Tablet NG/OG SCH (08:10)
--- NOTE | 2018-01-22 15:41 | P.PNIM ---
Subjective Interval history: The pt was resting comfortably. He changed rooms. He denied any pain. Discussed with nursing. Physical Exam Vital signs: Vital Signs 01/21/18 16:00 01/21/18 20:00 01/22/18 00:00 Temperature 98.2 F 97.8 F 97.9 F Pulse Rate 91 H 93 H 87 Respiratory Rate 20 16 16 Blood Pressure 112/65 96/50 L 116/66 Pulse Oximetry 95 97 97 01/22/18 04:00 01/22/18 08:00 Temperature 98.0 F 97.4 F L Pulse Rate 73 83 Respiratory Rate 15 20 Blood Pressure 111/69 119/91 H Pulse Oximetry 95 96 Intake & Output 01/21/18 01/22/18 01/22/18 18:59 06:59 18:59 Intake Total 600 / 600 100 / 100 Balance 600 / 600 100 / 100 Weight 60.9 kg Intake: Oral 600 / 600 100 / 100 Other: # Voids 2 2 Date of Last Bowel Movement 01/16/18 01/21/18 # Bowel Movements 1 Narrative: GENERAL: Well-nourished, well-developed middle aged male patient in [facility]. SKIN: Warm and dry. No rash. HEENT: Normocephalic. Atraumatic. Mildly erythematous conjunctiva. Pupils irregular CARDIOVASCULAR: Regular rate and rhythm. No murmur appreciated. RESPIRATORY: No accessory muscle use. Clear to auscultation. Breath sounds equal bilaterally. GASTROINTESTINAL: Abdomen soft, non-tender, nondistended. Normoactive bowel sounds x4. MUSCULOSKELETAL: No obvious deformities. Extremities without clubbing, cyanosis , or edema. NEUROLOGICAL: Awake and alert And oriented 2-3. No obvious cranial nerve deficits. Moving all extremities spontaneously. Normal speech. Results - Labs CBC & Chem 7: 12/28/17 08:05 12/30/17 05:57 Assessment and Plan - Assessment (1) Traumatic brain injury Code(s): S06.9X9A - Unspecified intracranial injury with loss of consciousness of unspecified duration, initial encounter Status: Acute (2) C. difficile diarrhea Code(s): A04.72 - Enterocolitis due to Clostridium difficile, not specified as recurrent Status: Acute - Plan Sepsis -due to Recurrent c diff colitis- Diarrhea -improved since off TF repeat C diff /- negative likely - TF diarrhea - CT of abdomen/pelvis- shows diffuse colitis- 12/07 -s/p Oral vancomycin per ID x 10 days - completed 11/21 and prior to this had treatment tapering - - hyper virulent strain -ID f/u appreciated; completed the course of Dificid. -after two weeks of treatment with Vanco; will continue with vanco taper ( started on on 12/24/17); vanco 125 mg po QID x 7days,then vanco 125 mg po BID x 7days,then vanco 125 mg po daily x 7days,then vanco 125 mg po Q48 hrs x 7days,then vanco 125 mg po Q72 hrs x 5 doses Fever: occasional low grade fever - RESOLVED -Infectious disease Dr. Arreola ff- - CXR and UA unremarkable - Repeat CBC with no leukocytosis - Blood cultures NGTD, do not start antibiotics unless there is recurrent fever or obvious source of infection. Right subdural hematoma 18 mm (w/ 15 mm shift)-stable TBI with neurocognitive defects - S/P bone flap on 11/11/17 - Keppra and Depakote. - Continue Seroquel - continue PT/OT efforts- ambulating with walker with SBA Respiratory failure - s/p trach; almost closed. Rib fractures -O2 sat stable on room air -repeat CXR 12/24 unremarkable -pulmonary following, appreciate recommendations Inadequate oral intake - IMPROVED - dietitian follow- up appreciated. - on mechanical soft diet with chopped meat - feeding tube was removed ( 01/14). Hypertension- BP controlled; continue to hold Atenolol. Hypothyroidism; continue Synthroid. conjunctivitis; treated with oph. erythromycin. Still with bilateral injection. -Polytrim gtts ordered 01/22. Mild improvement. DVT prophylaxis: Lovenox, SCDs Discharge Planning: CM following for DC planning- patient is from [place], no funding for SNF
[2018-01-22] MEDS: QUEtiapine 25 MG Tablet PO SCH (21:45)
[2018-01-23] MEDS: Polymyxin/Trimethop Opth Drops 10 ML Bottle EACH EYE SCH ×5 (00:14→23:59)
[2018-01-23] MEDS: QUEtiapine 25 MG Tablet NG/OG SCH (09:17)
[2018-01-23] MEDS: levETIRAcetam 500 MG Tablet NG/OG SCH ×2 (09:17→20:58)
--- NOTE | 2018-01-23 16:51 | P.PNIM ---
Subjective Interval history: The pt was resting comfortably in bed. He denied any pain in his eyes or stomach. Discussed with nursing. Physical Exam Vital signs: Vital Signs 01/22/18 20:00 01/23/18 00:00 01/23/18 04:00 Temperature 97.5 F L 97.4 F L 97.3 F L Pulse Rate 73 74 68 Respiratory Rate 18 18 19 Blood Pressure 115/70 128/76 114/83 Pulse Oximetry 95 98 93 L 01/23/18 08:00 01/23/18 12:00 Temperature 97.5 F L 97.8 F Pulse Rate 63 73 Respiratory Rate 16 16 Blood Pressure 110/67 99/59 L Pulse Oximetry 95 95 Intake & Output 01/22/18 01/23/18 01/23/18 18:59 06:59 18:59 Intake Total 480 / 480 Balance 480 / 480 Weight 63.3 kg Intake: Oral 480 / 480 Other: # Voids 2 0 Date of Last Bowel Movement 01/21/18 01/23/18 # Bowel Movements 1 Narrative: GENERAL: Well-nourished, well-developed middle aged male patient in [facility]. SKIN: Warm and dry. No rash. HEENT: Normocephalic. Atraumatic. Mildly erythematous conjunctiva. Pupils irregular CARDIOVASCULAR: Regular rate and rhythm. No murmur appreciated. RESPIRATORY: No accessory muscle use. Clear to auscultation. Breath sounds equal bilaterally. GASTROINTESTINAL: Abdomen soft, non-tender, nondistended. Normoactive bowel sounds x4. MUSCULOSKELETAL: No obvious deformities. Extremities without clubbing, cyanosis , or edema. NEUROLOGICAL: Awake and alert And oriented 2-3. No obvious cranial nerve deficits. Moving all extremities spontaneously. Normal speech. Results - Labs CBC & Chem 7: 12/28/17 08:05 12/30/17 05:57 Assessment and Plan - Assessment (1) Traumatic brain injury Code(s): S06.9X9A - Unspecified intracranial injury with loss of consciousness of unspecified duration, initial encounter Status: Acute (2) C. difficile diarrhea Code(s): A04.72 - Enterocolitis due to Clostridium difficile, not specified as recurrent Status: Acute - Plan Sepsis -due to Recurrent c diff colitis- Diarrhea -improved since off TF repeat C diff 12/28- negative likely - TF diarrhea - CT of abdomen/pelvis- shows diffuse colitis- 12/07 -s/p Oral vancomycin per ID x 10 days - completed 11/21 and prior to this had treatment tapering - - hyper virulent strain -ID f/u appreciated; completed the course of Dificid. -after two weeks of treatment with Vanco; will continue with vanco taper ( started on on 12/24/17); vanco 125 mg po QID x 7days,then vanco 125 mg po BID x 7days,then vanco 125 mg po daily x 7days,then vanco 125 mg po Q48 hrs x 7days,then vanco 125 mg po Q72 hrs x 5 doses Fever: occasional low grade fever - RESOLVED -Infectious disease Dr. Arreola ff- - CXR and UA unremarkable - Repeat CBC with no leukocytosis - Blood cultures NGTD, do not start antibiotics unless there is recurrent fever or obvious source of infection. Right subdural hematoma 18 mm (w/ 15 mm shift)-stable TBI with neurocognitive defects - S/P bone flap on 11/11/17 - Kepp and Depakote. - Continue Seroquel - continue PT/OT efforts- ambulating with walker with SBA Respiratory failure - s/p trach; almost closed. Rib fractures -O2 sat stable on room air -repeat CXR 12/24 unremarkable -pulmonary following, appreciate recommendations Inadequate oral intake - dietitian follow- up appreciated. - feeding tube was removed (01/14). Tolerating diet. Hypertension BP controlled. -continue to hold atenolol as blood pressure has been on the low side. Hypothyroidism -continue Synthroid. conjunctivitis; treated with oph. erythromycin. Still with bilateral injection. -Polytrim gtts ordered 01/22. DVT prophylaxis: Lovenox, SCDs Discharge Planning: CM following for DC planning- patient is from [place], no funding for SNF
[2018-01-23] MEDS: QUEtiapine 25 MG Tablet PO SCH (20:58)
[2018-01-24] MEDS: Polymyxin/Trimethop Opth Drops 10 ML Bottle EACH EYE SCH ×4 (05:14→23:54)
[2018-01-24] MEDS: QUEtiapine 25 MG Tablet NG/OG SCH (08:52)
[2018-01-24] MEDS: levETIRAcetam 500 MG Tablet NG/OG SCH ×2 (08:52→21:42)
--- NOTE | 2018-01-24 16:25 | P.PNIM ---
Subjective Interval history: I have not seen Mr. Bill for the last 3-4 months and he seems much improved at this point. He is verbal and seems alert and oriented 3. He has no complaints today. He states his family's been somewhat unsupportive though they live in [place] they have hardly been in to visit with him. The rest of his family is in [place] Physical Exam Vital signs: Vital Signs 01/23/18 20:00 01/24/18 00:00 01/24/18 04:00 Temperature 98.4 F 98.3 F 98.5 F Pulse Rate 79 74 70 Respiratory Rate 16 16 16 Blood Pressure 119/63 112/65 118/71 Pulse Oximetry 95 96 97 01/24/18 08:00 01/24/18 12:00 Temperature 97.6 F 97.3 F L Pulse Rate 79 74 Respiratory Rate 18 18 Blood Pressure 123/83 109/62 Pulse Oximetry 97 95 Intake & Output 01/23/18 01/24/18 01/24/18 18:59 06:59 18:59 Intake Total 480 / 480 Balance 480 / 480 Weight 63.3 kg 62.8 kg Intake: Oral 480 / 480 Other: # Voids 3 4 Date of Last Bowel Movement 01/23/18 01/23/18 Narrative: GENERAL: AAOx3, no acute distress SKIN: Warm and dry. No rashes HEAD: Atruamtic, normocephalic. EYES: No scleral icterus. No injection or drainage. ENT: Moist mucous membranes, patent nares, no erythema of oropharynx. NECK: Supple, trachea midline. No JVD or lymphadenopathy. Normal thyroid. CARDIOVASCULAR: Regular rate and rhythm. No murmurs, gallops, or rubs. RESPIRATORY: Breath sounds clear equal bilaterally. No crackles or wheezes. No accessory muscle use. GASTROINTESTINAL: Abdomen soft, non-tender, nondistended, normal active bowel sounds MUSCULOSKELETAL: No cyanosis, or edema. NEURO: Moderate deficits associated with traumatic brain injury Results - Labs CBC & Chem 7: 12/28/17 08:05 12/30/17 05:57 Assessment and Plan - Assessment (1) Traumatic brain injury Code(s): S06.9X9A - Unspecified intracranial injury with loss of consciousness of unspecified duration, initial encounter Status: Acute (2) C. difficile diarrhea Code(s): A04.72 - Enterocolitis due to Clostridium difficile, not specified as recurrent Status: Acute - Plan Sepsis due to Recurrent c diff colitis Diarrhea -improved, C. difficile -12/28 CT of abdomen/pelvis- shows diffuse colitis- 12/07 s/p Oral vancomycin per ID x 10 days - completed 11/21, hyper virulent strain, completed course of Dificid Appreciate infectious disease consult The following taper started on on 12/24/17 vanco 125 mg po QID x 7days,then vanco 125 mg po BID x 7days,then vanco 125 mg po daily x 7days,then vanco 125 mg po Q48 hrs x 7days,then vanco 125 mg po Q72 hrs x 5 doses Low-grade fevers Currently resolved CXR and UA unremarkable Repeat CBC with no leukocytosis Blood cultures NGTD Right subdural hematoma 18 mm (w/ 15 mm shift)-stable TBI with neurocognitive defects, S/P bone flap on 11/11/17 Continue Keppra and Depakote, continue Seroquel. Continue PT OT efforts with ambulating with walker w/ SBA Respiratory failure - s/p trach Stoma near closed, rib fractures healed repeat CXR 12/24 unremarkable Appreciate pulmonology following Inadequate oral intake Feeding tube removed 821, tolerating diet, intake adequate Hypothyroidism continue Synthroid. conjunctivitis treated with oph. erythromycin. Still with bilateral injection. Polytrim gtts ordered 01/22. DVT Prophylaxis Lovenox Discharge planning Patient is from [place], no funding for SNF Attempting to discharge patient to his local family next week
[2018-01-24] MEDS: QUEtiapine 25 MG Tablet PO SCH (21:42)
[2018-01-25] MEDS: Polymyxin/Trimethop Opth Drops 10 ML Bottle EACH EYE SCH ×3 (05:39→17:31)
[2018-01-25] MEDS: QUEtiapine 25 MG Tablet NG/OG SCH (08:46)
[2018-01-25] MEDS: levETIRAcetam 500 MG Tablet NG/OG SCH ×2 (08:46→21:17)
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
[2018-01-25] MEDS: QUEtiapine 25 MG Tablet PO SCH (21:17)
[2018-01-26] MEDS: Polymyxin/Trimethop Opth Drops 10 ML Bottle EACH EYE SCH ×4 (01:46→18:07)
[2018-01-26] MEDS: QUEtiapine 25 MG Tablet NG/OG SCH (08:13)
[2018-01-26] MEDS: levETIRAcetam 500 MG Tablet NG/OG SCH ×2 (08:13→20:26)
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
[2018-01-26] MEDS: QUEtiapine 25 MG Tablet PO SCH (20:26)
[2018-01-27] MEDS: Polymyxin/Trimethop Opth Drops 10 ML Bottle EACH EYE SCH ×5 (00:29→23:31)
[2018-01-27] MEDS: levETIRAcetam 500 MG Tablet NG/OG SCH ×2 (08:27→21:27)
[2018-01-27] MEDS: QUEtiapine 25 MG Tablet NG/OG SCH (08:27)
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
[2018-01-27] MEDS: QUEtiapine 25 MG Tablet PO SCH (21:27)
[2018-01-27 23:39] VITALS: O2SAT 96
[2018-01-28] MEDS: Polymyxin/Trimethop Opth Drops 10 ML Bottle EACH EYE SCH ×2 (05:41→11:58)
[2018-01-28 07:08] VITALS: RESP 18
[2018-01-28] MEDS: QUEtiapine 25 MG Tablet NG/OG SCH (08:26)
[2018-01-28] MEDS: levETIRAcetam 500 MG Tablet NG/OG SCH (08:26)
[2018-01-28 13:05] VITALS: BP 126/84; PULSE 84; TEMP 98
== END 2018-01-28 14:48 | disposition home or self-care (01) ==
LOC: N04 22:38
PROVIDERS: ADMIT Family Medicine; ATTEND Family Medicine